=== PATIENT | male | born 1945 | race Caucasian/White ===

== ENCOUNTER 2020-09-11 11:45 | Emergency (ER) | payer MEDICARE, SELFPAY ==
--- NOTE | 2020-09-11 11:49 | ED_ITS ---
HPI - General Adult General Chief complaint: Trauma Stated complaint: GLF Time Seen by Provider: 09/11/20 11:47 Source: patient Mode of arrival: EMS Limitations: no limitations History of Present Illness HPI narrative: Patient is a 74-year-old male. Was brought in by EMS for evaluation of a potential urinary tract infection. He has also had multiple falls over the past couple days. His last fall was approximately 4 days ago. He states he just lost his balance falling over and he did hit his head and did hurt his left shoulder. He is on anticoagulation. Reports no other injuries from that fall. He was not evaluated for that fall. Today he stated that he slid out of his chair. He did not hit his head today. Reports no injury from sliding out of his chair today. He does state that he has had painful urination for the past couple days. Denies any fevers. Has had urinary tract infections in the past. He does have an essential tremor in bilateral upper extremities with left being greater than right. He states this is been there for ?years? and he has had evaluated. Related Data Previous Rx's Medication Instructions Recorded cephalexin [Keflex] 500 mg PO BID 5 Days #10 cap 09/11/20 Allergies Allergy/AdvReac Type Severity Reaction Status Date / Time No Known Allergies Allergy Uncoded 09/11/20 12:03 Review of Systems Constitutional Constitutional: Denies fever(s), Reports frequent falls and Denies headache(s) ENT Ears, Nose, Mouth, and Throat: Denies vertigo, Denies dizziness, Denies headache(s) and Reports disequilibrium Cardiovascular Cardiovascular: Denies chest pain and Denies dyspnea Respiratory Respiratory: Denies dyspnea Gastrointestinal Gastrointestinal: Denies abdominal pain, Denies nausea and Denies vomiting Musculoskeletal Comments: Some left shoulder discomfort, some left hip discomfort Integumentary/Breasts Comments: Bruising to left shoulder Neurologic Neurologic: Denies behavioral changes, Denies vertigo, Denies dizziness, Reports frequent falls, Denies headache(s), Reports tremor(s) and Reports disequili brium Psychiatric Psychiatric: Denies behavioral changes Hematologic/Lymphatic On Anticoagulants: Yes Allergic/Immunologic Allergic/Immunologic: Denies urticaria Patient History Medical History Coarse tremors Congestive heart failure Social History (Reviewed 09/11/20 @ 12:19 by ESTHER Adkins Smoking Status: Never smoker Exam Initial Vital Signs Initial Vital Signs: Vital Signs Temperature 98.3 F 09/11/20 11:57 Pulse Rate 83 09/11/20 11:57 Respiratory Rate 15 09/11/20 11:57 Blood Pressure 148/81 H 09/11/20 11:57 Pulse Oximetry 98 09/11/20 11:57 Const General: cooperative and comfortable Limitations: mental status not altered HENMT Head: contusion (Left parietal region) and No laceration Nose: external nose normal Resp Effort & Inspection: normal respiratory effort Auscultation: clear to auscultation bilaterally Cardio Rate: regular rate Rhythm: regular rhythm Pulses: radial pulses present GI Inspection: non-distended Palpation: soft and No firm Back/Spine/Pelvis Cervical Spine: No cervical spinal tenderness Skin Other: Contusion around left shoulder in contusion left parietal region scalp Neuro General: patient alert, patient awake and patient oriented x3 Cognition: normal cognition Speech: speech normal Other: Tremors bilateral upper extremities left being greater than right Extrem Other: Patient does have tenderness to palpation was left hip this is not new. Does have tenderness to palpation of his left shoulder that is new from his last fall Psych Appearance: grossly normal and well kempt Course Orders Ordered: ED Orders 09/11/20 11:52 Complete Blood Count AUTO DIFF Stat Comprehensive Metabolic Panel Stat Lipase Stat Procalcitonin Stat 09/11/20 11:59 EKG-12 Lead Stat 09/11/20 12:16 CT head/brain wo con Stat XR shoulder LT min 2V Stat 09/11/20 13:00 Urine Culture Stat Urine Microscopic Stat Sodium Chloride (Normal Saline 0.9%) 1,000 mls @ 500 mls/hr IV BOLUS ONE Stop: 09/11/20 14:15 Last Admin: 09/11/20 12:50 Dose: 500 mls/hr Documented by: GENARO Vital Signs Vital signs: Vital Signs - 8 hr 09/11/20 11:57 Temperature 98.3 F Pulse Rate 83 Respiratory Rate 15 Blood Pressure 148/81 H Pulse Oximetry 98 Medical Decision Making Lab Data Result diagrams: 09/11/20 11:52 09/11/20 11:52 Labs: Lab Results 09/11/20 09/11/20 09/11/20 Range/Units 11:52 11:52 11:52 WBC 9.9 (4.5-11.0) X10^3/uL RBC 3.86 L (4.5-5.9) X10^6/uL Hgb 14.3 (13.5-17.5) g/dL Hct 42.1 (41-53) % MCV 109.1 H (80-100) fL MCH 37.0 H (26-34) PG MCHC 33.9 (30-36) % RDW 16.2 H (11.6-14.8) % Plt Count 177 (150-400) X10^3/uL Neut % (Auto) 85.9 H (50-75) % Lymph % (Auto) 3.9 L (25-40) % Cherokee % (Auto) 9.8 (3-14) % Eos % (Auto) 0.1 L (2-4) % Baso % (Auto) 0.3 (0-2) % Neut # (Auto) 8500 H (6434-3541) /uL Lymph # (Auto) 400 L (8715-1160) /uL Cherokee # (Auto) 1000 H (0-900) /uL Eos # (Auto) 0 (0-450) /uL Baso # (Auto) 0 (0-100) /uL Sodium 133 L (137-145) mmol/L Potassium 3.1 L (3.4-5.1) mmol/L Chloride 94 L (98-107) mmol/L Carbon Dioxide 28 (22-32) mmol/L BUN 28 H (9-20) mg/dL Creatinine 1.75 H (0.66-1.25) mg/dL Estimated GFR 38.4 L (>60) mL/min BUN/Creatinine Ratio 16.0 (6-22) Glucose 121 H (80-110) mg/dL Calcium 9.0 (8.4-10.2) mg/dL Total Bilirubin 1.6 H (0.2-1.3) mg/dL AST 31 (17-59) IU/L ALT 20 (<50) IU/L Alkaline Phosphatase 122 (38-126) U/L Total Protein 7.3 (6.3-8.2) g/dL Albumin 3.8 (3.5-5.0) g/dL Globulin 3.5 (1.7-4.1) g/dL Albumin/Globulin Ratio 1.1 (1.0-2.8) Lipase 40 (23-300) U/L Procalcitonin 1.43 H (<0.5) ng/mL Urine RBC (0-5/HPF) Urine WBC (0-5/HPF) Ur Squamous Epith Cells (0-5/HPF) Amorphous Sediment Urine Bacteria (None) Granular Casts (None) Urine Mucus (Negative) Ur Culture Indicated? 09/11/20 Range/Units 13:00 WBC (4.5-11.0) X10^3/uL RBC (4.5-5.9) X10^6/uL Hgb (13.5-17.5) g/dL Hct (41-53) % MCV (80-100) fL MCH (26-34) PG MCHC (30-36) % RDW (11.6-14.8) % Plt Count (150-400) X10^3/uL Neut % (Auto) (50-75) % Lymph % (Auto) (25-40) % Cherokee % (Auto) (3-14) % Eos % (Auto) (2-4) % Baso % (Auto) (0-2) % Neut # (Auto) (5294-6939) /uL Lymph # (Auto) (8068-3884) /uL Cherokee # (Auto) (0-900) /uL Eos # (Auto) (0-450) /uL Baso # (Auto) (0-100) /uL Sodium (137-145) mmol/L Potassium (3.4-5.1) mmol/L Chloride (98-107) mmol/L Carbon Dioxide (22-32) mmol/L BUN (9-20) mg/dL Creatinine (0.66-1.25) mg/dL Estimated GFR (>60) mL/min BUN/Creatinine Ratio (6-22) Glucose (80-110) mg/dL Calcium (8.4-10.2) mg/dL Total Bilirubin (0.2-1.3) mg/dL AST (17-59) IU/L ALT (<50) IU/L Alkaline Phosphatase (38-126) U/L Total Protein (6.3-8.2) g/dL Albumin (3.5-5.0) g/dL Globulin (1.7-4.1) g/dL Albumin/Globulin Ratio (1.0-2.8) Lipase (23-300) U/L Procalcitonin (<0.5) ng/mL Urine RBC 1-5/hpf (0-5/HPF) Urine WBC 10-30/hpf H (0-5/HPF) Ur Squamous Epith Cells 0-1 /hpf (0-5/HPF) Amorphous Sediment 1+ Urine Bacteria Few (2-10) H (None) Granular Casts 1-5/lpf (None) Urine Mucus 1+ H (Negative) Ur Culture Indicated? Specimen cultured Urine Dip Bedside Urine Glucose Negative Bedside Urine Bilirubin - Negative Bedside Urine Ketone +/- 5 Urine Specific Dwight 1.025 Bedside Urine Occult Blood +++ Bedside Urine pH 6.0 Bedside Urine Protein + 30 Bedside Urine Urobilinogen - Negative Bedside Urine Nitrite - Negative Bedside Urine Leukocytes + 70 Esterase Point of care testing: Urine Dip Bedside Urine Glucose Negative Bedside Urine Bilirubin - Negative Bedside Urine Ketone +/- 5 Urine Specific Dwight 1.025 Bedside Urine Occult Blood +++ Bedside Urine pH 6.0 Bedside Urine Protein + 30 Bedside Urine Urobilinogen - Negative Bedside Urine Nitrite - Negative Bedside Urine Leukocytes + 70 Esterase Imaging Data Extremity x-ray #1: Radiologist's Impression: [address] [id number] ReportSigned Patient: Fady Cummings AMR#: [id number]: 7Acct:[id number]/Sex: 74 / MDate of Service: 09/11/20Loc: EDAccession Number: [id number] Procedure: XR shoulder LT min 2V Ordering Provider: José Miguel Sampson D.O. PROCEDURE: XR SHOULDER LT MIN 2V INDICATIONS: fall with pain TECHNIQUE: 3 views of the shoulder were acquired. COMPARISON: None. FINDINGS: Bones: No fractures or dislocations. No suspicious bony lesions. Visualized ribs appear intact. Soft tissues: No suspicious soft tissue calcifications. IMPRESSION: No acute fracture. No osseous lesion. If symptoms and/or clinical suspicion for pathology persist, further assessment with repeat, or advanced imaging (e.g., CT, MRI, or bone scan) may be helpful for further assessment. Dictated by: Lidia Mireles M.D. on 09/11/2020 at 11:36 Approved by: Lidia Mireles M.D. on 09/11/2020 at 11:36 CT scan - head: Radiologist's Impression: [address] [id number] Scan ReportSigned Patient: Fday Cummings AMR#: [id number]: 7Acct:[id number]/Sex: 74 / MDate of Service: 09/11/20Loc: EDAccession Number: [id number] Procedure: CT head/brain wo con Ordering Provider: José Miguel Sampson D.O. PROCEDURE: CT HEAD/BRAIN WO CON INDICATIONS: Fall on blood thinners TECHNIQUE: Noncontrast 4.5 mm thick angled axial sections acquired from the foramen magnum to the vertex, with coronal and sagittal reformats. For radiation dose reduction, the following was used: automated exposure control, adjustment of mA and/or kV according to patient size. COMPARISON: None. FINDINGS: Image quality: Excellent. CSF spaces: Basal cisterns are patent. No extra-axial fluid collections. The ventricles are symmetric in size and shape. Brain: No intracranial bleeds or masses. There is cerebral volume loss for age, with resultant ventricular and sulcal prominence. There are periventricular and deep white matter chronic small vessel ischemic changes. There is intracranial internal carotid artery atherosclerosis. Skull and face: Calvarium and visualized facial bones appear intact, without s uspicious lesions. Sinuses: Severe left maxillary sinus opacification. Visualized sinuses and m astoids are otherwise clear. IMPRESSION: No acute intracranial abnormality. Left maxillary sinus disease. Dictated by: Lidia Mireles M.D. on 09/11/2020 at 11:37 Approved by: Lidia Mireles M.D. on 09/11/2020 at 11:38 ECG Data Attestation: I personally reviewed and interpreted this ECG as follows: Prior ECG tracings: not available for review Interpretation: Sinus rhythm Ventricular rate is 68 Frequent PACs Occasional ventricular pace MDM Narrative Medical decision making narrative: Patient is nontoxic appearing. He is at his baseline neurologic status per himself and his daughter who is at bedside. His left shoulder x-ray in his head CT are unremarkable. Modified trauma was called upon arrival because he did fall and has a head injury any is on anticoagulation. His urinalysis does show signs of urinary tract infection. Urine culture was pending at the time of his discharge and he was informed that he would be contacted if we need to change any antibiotics. He was given 1st dose of antibiotics here in the emergency department and a prescription was transmitted to the pharmacy of his choice for the remainder of the course. I also had a long discussion with him and his daughter about his living situations. We did discuss fall prevention. They stated they had information to the needed about other resources if needed. Patient and daughter expressed understanding and agreement with return precautions. Discharge Plan Departure Patient Disposition: Home Clinical Impression: Urinary tract infection Instructions: DI for Urinary Tract Infection (UTI), How to Prevent Falls Activity Restrictions/Additional Instructions: A prescription for the remainder of the course of the antibiotics was electronically transmitted to [facility]. Please take them as directed. It is important that you take the proper precautions at home to prevent falls. Contact your primary provider for follow-up. Return to the emergency department for any new or worsening symptoms Prescriptions: New cephalexin [Keflex] 500 mg capsule 500 mg PO BID 5 Days Qty: 10 RF: 0
[2020-09-11 11:57] VITALS: BP 148/81; PULSE 83; RESP 15; TEMP 36.8; O2SAT 98; BMI 26.6
[2020-09-11 11:59] LABS: Add Manual Diff / Slide Review NO; Basophils Absolute Auto 0 /uL (0-100); Basophils Percent Auto 0.3 % (0-2); Eosinophils Absolute Auto 0 /uL (0-450); Eosinophils Percent Auto 0.1 % (2-4); Hematocrit 42.1 % (41-53); Hemoglobin 14.3 g/dL (13.5-17.5); Lymphocytes Absolute Auto 400 /uL (1100-4500); Lymphocytes Percent Auto 3.9 % (25-40); Mean Corpuscular HGB Conc 33.9 % (30-36); Mean Corpuscular Volume 109.1 fL (80-100); Monocytes Absolute Auto 1000 /uL (0-900); Monocytes Percent Auto 9.8 % (3-14); Neutrophils Absolute Auto 8500 /uL (1500-7000); Neutrophils Percent Auto 85.9 % (50-75); Platelet Count 177 X10^3/uL (150-400); Red Blood Cell Count 3.86 X10^6/uL (4.5-5.9); Red Cell Distribution Width 16.2 % (11.6-14.8); White Blood Cell Count 9.9 X10^3/uL (4.5-11.0)
[2020-09-11 12:00] VITALS: BP 141/81; PULSE 89; RESP 16; O2SAT 97
[2020-09-11 12:08] LABS: Alanine Aminotransferase 20 IU/L (<50); Albumin 3.8 g/dL (3.5-5.0); Albumin Globulin Ratio 1.1 (1.0-2.8); Alkaline Phosphatase 122 U/L (38-126); Aspartate Aminotransferase 31 IU/L (17-59); Bilirubin Total 1.6 mg/dL (0.2-1.3); Blood Urea Nitrogen 28 mg/dL (9-20); Carbon Dioxide 28 mmol/L (22-32); Chloride 94 mmol/L (98-107); Estimated Glomerular Filt Rate 38.4 mL/min (>60); Globulin 3.5 g/dL (1.7-4.1); Glucose 121 mg/dL (80-110); HEMOLYSIS < 15 (0-50); Lipase 40 U/L (23-300); Potassium 3.1 mmol/L (3.4-5.1); Sodium 133 mmol/L (137-145); Total Protein 7.3 g/dL (6.3-8.2)
--- NOTE | 2020-09-11 12:16 | DI.CT.S_ITS ---
PROCEDURE: CT HEAD/BRAIN WO CON INDICATIONS: Fall on blood thinners TECHNIQUE: Noncontrast 4.5 mm thick angled axial sections acquired from the foramen magnum to the vertex, with coronal and sagittal reformats. For radiation dose reduction, the following was used: automated exposure control, adjustment of mA and/or kV according to patient size. COMPARISON: None. FINDINGS: Image quality: Excellent. CSF spaces: Basal cisterns are patent. No extra-axial fluid collections. The ventricles are symmetric in size and shape. Brain: No intracranial bleeds or masses. There is cerebral volume loss for age, with resultant ventricular and sulcal prominence. There are periventricular and deep white matter chronic small vessel ischemic changes. There is intracranial internal carotid artery atherosclerosis. Skull and face: Calvarium and visualized facial bones appear intact, without suspicious lesions. Sinuses: Severe left maxillary sinus opacification. Visualized sinuses and mastoids are otherwise clear. IMPRESSION: No acute intracranial abnormality. Left maxillary sinus disease. Dictated by: Lidia Mireles M.D. on 09/11/2020 at 11:37 Approved by: Lidia Mireles M.D. on 09/11/2020 at 11:38
--- NOTE | 2020-09-11 12:16 | DI.RAD.S_ITS ---
PROCEDURE: XR SHOULDER LT MIN 2V INDICATIONS: fall with pain TECHNIQUE: 3 views of the shoulder were acquired. COMPARISON: None. FINDINGS: Bones: No fractures or dislocations. No suspicious bony lesions. Visualized ribs appear intact. Soft tissues: No suspicious soft tissue calcifications. IMPRESSION: No acute fracture. No osseous lesion. If symptoms and/or clinical suspicion for pathology persist, further assessment with repeat, or advanced imaging (e.g., CT, MRI, or bone scan) may be helpful for further assessment. Dictated by: iLdia Mireles M.D. on 09/11/2020 at 11:36 Approved by: Lidia Mireles M.D. on 09/11/2020 at 11:36
[2020-09-11 12:28] LABS: Procalcitonin 1.43 ng/mL (<0.5)
[2020-09-11] MEDS: SODIUM CHLORIDE 0.9% 1,000 ML 500 ML IV (12:50)
[2020-09-11 13:18] LABS: Amorphous Sediment Urine 1+; Bacteria Urine Few (2-10); Granular Casts Urine 1-5/LPF; RBC Urine 1-5/HPF (0-5/HPF); Squamous Epithelial Cell Urine 0-1 /HPF (0-5/HPF); WBC Urine 10-30/HPF (0-5/HPF)
[2020-09-11 13:19] LABS: Culture Indicated Urine Specimen Cultured; Mucus Urine 1+ (Negative)
[2020-09-11] MEDS: cephALEXin 250 MG CAPSULE 500 MG PO (13:53)
[2020-09-11 14:00] VITALS: BP 136/84; PULSE 79; RESP 16; O2SAT 99
--- NOTE | 2020-10-10 14:15 | PC.NURSE ---
Late entry: IV NS 500 mL bolus started at 1250 infused at 1320 hrs.
== END 2020-09-11 14:45 | disposition home or self-care (01) ==
PROVIDERS: Emergency Provider Emergency Medicine
DX: N39.0 Urinary tract infection, site not specified (principal); M25.512 Pain in left shoulder; R29.6 Repeated falls; S09.90XA Unspecified injury of head, initial encounter; W19.XXXA Unspecified fall, initial encounter
CPT/HCPCS: 36415; 70450; 73030; 80053; 81003; 81015; 83690; 84145; 85025; 87077; 87086; 87186; 93005; 99283; 99284

== ENCOUNTER 2020-12-15 19:04 | Inpatient (IN) | payer OTHER, SELFPAY ==
[2020-12-15] VITALS (51 sets, daily range): BP systolic 69–165; BP diastolic 30–88; PULSE 59–88; RESP 15–35; TEMP 34.4–36.7; O2SAT 81–100; BMI 25.9
--- NOTE | 2020-12-15 | DI.CT.S_ITS ---
PROCEDURE: CT ABDOMEN PELVIS WO CON INDICATIONS: Possible obstruction/sepsis TECHNIQUE: Noncontrast 5 mm thick sections acquired from the diaphragms to the symphysis. 5 mm coronal and sagittal reformats were then performed. For radiation dose reduction, the following was used: automated exposure control, adjustment of mA and/or kV according to patient size. COMPARISON: [facility], CT, CHEST/ABD/PEL WITHOUT CONTRAST, 10/15/2013, 12:32. FINDINGS: Image quality: Excellent. ABDOMEN: Lung bases: Lung bases are clear. Heart is enlarged. No pleural effusion. Solid organs: Liver is normal in size. Gallbladder contains layering hyperdense material likely representing sludge. No definite stones.. Biliary system is non dilated. Pancreas is normal in size. No peripancreatic stranding. Spleen is normal in size. No adrenal nodule seen. Kidneys are stable in size and appearance. No hydronephrosis. No evidence for renal stones. Small bilateral renal cysts, not significantly changed. There is a 3 mm distal left ureteral stone. This is best seen on axial image 70, series 2. No left-sided hydroureteronephrosis. Right ureter is normal in course and caliber. No right-sided ureteral stones seen. No urinary bladder stone identified. Stable mild perinephric stranding, likely related to senescent changes. No periureteral stranding. Peritoneum and bowel: Bowel loops demonstrate normal wall thickness and caliber. Colonic diverticulosis without acute diverticulitis. No pelvic free fluid or free air. Nodes and vessels: No retroperitoneal or mesenteric adenopathy by size criteria. Aorta and inferior vena cava are normal in size. Scattered atherosclerotic calcifications of the abdominal aorta and iliac vessels without aneurysmal dilatation. Miscellaneous: No ventral hernias. PELVIS: Genitourinary: Urinary bladder wall thickness appears normal for degree of distension. No urinary bladder stones. Mild prostatomegaly. Miscellaneous: Stable fat containing left inguinal hernia without acute inflammation. No pelvic adenopathy. Bones: No suspicious bony lesions. There is approximately 30% anterior vertebral body height loss from age indeterminate anterior compression fracture of T12, favored to represent acute to subacute in etiology. Multilevel spondylosis of the imaged spine. Status post left total hip arthroplasty. IMPRESSION: 1. Nonobstructing 3 mm distal left ureteral stone. 2. Age-indeterminate but likely acute to subacute anterior compression fracture of T12 with approximately 30% loss of anterior vertebral body height. 3. Layering hyperdensity within the gallbladder likely representing sludge versus innumerable layering tiny gallstones. No CT evidence of acute cholecystitis. 4. Atherosclerotic vascular disease. 5. Colonic diverticulosis without acute diverticulitis. 6. Stable cardiomegaly. Findings were discussed with Dr. Sampson of the emergency department at 9:45 a.m.. Specifically, 3 mm distal left ureteral stone was not mentioned on the preliminary report.. Dictated by: Suresh Naranjo M.D. on 12/16/2020 at 9:35 Approved by: Suresh Naranjo M.D. on 12/16/2020 at 9:53
--- NOTE | 2020-12-15 19:40 | DI.RAD.S_ITS ---
PROCEDURE: XR CHEST 1V INDICATIONS: sepsis evaluation TECHNIQUE: One view of the chest was acquired. COMPARISON: None. FINDINGS: Surgical changes and devices: Left-sided pacer. Lungs and pleura: Lungs are clear. No pleural effusions or pneumothorax. Mediastinum: Mediastinal contours appear normal. Heart size is normal. Bones and chest wall: No suspicious bony lesions. Overlying soft tissues appear unremarkable. IMPRESSION: No acute process. Dictated by: Lidia Mireles M.D. on 12/15/2020 at 20:03 Approved by: Lidia Mireles M.D. on 12/15/2020 at 20:03
--- NOTE | 2020-12-15 19:41 | DI.RAD.S_ITS ---
PROCEDURE: XR TOE RT MIN 2V INDICATIONS: 2nd toe necrosis TECHNIQUE: 3 views of the right 2nd toe(s) acquired. COMPARISON: None. FINDINGS: Bones: No fractures or dislocations. No suspicious bony lesions. Soft tissues: No suspicious soft tissue densities. IMPRESSION: No acute fracture. No osseous lesion. If symptoms and/or clinical suspicion for pathology persist, further assessment with repeat, or advanced imaging (e.g., CT, MRI, or bone scan) may be helpful for further assessment. Dictated by: Lidia Mireles M.D. on 12/15/2020 at 20:03 Approved by: Lidia Mireles M.D. on 12/15/2020 at 20:04
[2020-12-15 20:10] LABS: Add Manual Diff / Slide Review NO; Basophils Absolute Auto 100 /uL (0-100); Basophils Percent Auto 0.8 % (0-2); Eosinophils Absolute Auto 500 /uL (0-450); Eosinophils Percent Auto 5.3 % (2-4); Hemoglobin 12.8 g/dL (13.5-17.5); Lymphocytes Absolute Auto 1800 /uL (1100-4500); Lymphocytes Percent Auto 19.9 % (25-40); Mean Corpuscular HGB Conc 33.7 % (30-36); Mean Corpuscular Volume 115.9 fL (80-100); Monocytes Absolute Auto 900 /uL (0-900); Monocytes Percent Auto 10.3 % (3-14); Neutrophils Absolute Auto 5700 /uL (1500-7000); Neutrophils Percent Auto 63.7 % (50-75); Platelet Count 240 X10^3/uL (150-400); Red Blood Cell Count 3.28 X10^6/uL (4.5-5.9)
[2020-12-15] MEDS: LACTATED RINGERS 820 ML IV (20:10)
[2020-12-15 20:14] LABS: Alanine Aminotransferase 14 IU/L (<50); Albumin 3.9 g/dL (3.5-5.0); Alkaline Phosphatase 120 U/L (38-126); Aspartate Aminotransferase 24 IU/L (17-59); BUN Creatinine Ratio 19.3 (6-22); Bilirubin Total 0.4 mg/dL (0.2-1.3); Blood Urea Nitrogen 60 mg/dL (9-20); Calcium 9.7 mg/dL (8.4-10.2); Carbon Dioxide 19 mmol/L (22-32); Chloride 100 mmol/L (98-107); Creatine Kinase 22 U/L (55-170); Estimated Glomerular Filt Rate 19.7 mL/min (>60); Globulin 3.9 g/dL (1.7-4.1); Glucose 94 mg/dL (80-110); HEMOLYSIS < 15 (0-50); Sodium 132 mmol/L (137-145); Total Protein 7.8 g/dL (6.3-8.2)
[2020-12-15 20:15] LABS: Lactate (Lactic Acid) 3.6 mmol/L (0.7-2.1)
[2020-12-15 20:28] LABS: Troponin I 0.041 ng/mL (0.01-0.034)
[2020-12-15 20:33] LABS: Procalcitonin 0.31 ng/mL (<0.5)
[2020-12-15 20:47] LABS: Macrocytosis 3+; Platelet Estimate Adequate on smear
--- NOTE | 2020-12-15 20:54 | ED.EXTPRO ---
HPI - Extremity Problem General Chief complaint: Extremity Problem,Nontraumatic Stated complaint: Necrotic Stage 3 on Rt 2nd toe Time Seen by Provider: 12/15/20 19:25 Source: patient and family Mode of arrival: Wheelchair Limitations: no limitations History of Present Illness HPI Narrative: 75-year-old male nonsmoker, with history of HTN, DM, AFib and pacemaker with frequent falls presents for low blood pressure, chills and a wound on the 2nd toe of his right foot. The wound has been there for about 2-3 weeks and has been evaluated by multiple family members which are nurses. He is currently taking Keflex for the foot.. He denies any injury, new shoes or other. He denies any headache, runny nose or sore throat. He denies any chest pain, shortness of breath or cough. He denies any abdominal pain or trouble urinating. MD Complaint: extremity swelling Onset (ago): day(s) Location: right Radiation: none Relieving factors: nothing Exacerbating factors: nothing Associated symptoms: fever and myalgias Related Data Allergies Allergy/AdvReac Type Severity Reaction Status Date / Time No Known Allergies Allergy Uncoded 09/11/20 12:03 Review of Systems Constitutional Constitutional: Reports chills, Denies fatigue, Reports fever(s), Reports frequent falls, Denies lethargy and Denies weakness Eyes Eyes: Denies change in vision, Denies eye discharge, Denies irritation and Denies loss of vision ENT Ears, Nose, Mouth, and Throat: Denies change in voice, Denies dizziness, Denies neck pain, Denies sore throat and Denies throat swelling Cardiovascular Cardiovascular: Denies chest pain, Denies irregular heart rhythm, Denies lightheadedness, Denies palpitations, Denies dyspnea, Denies dyspnea on exertion and Denies orthopnea Respiratory Respiratory: Denies cough, Denies dyspnea, Denies dyspnea on exertion and Denies wheezing Gastrointestinal Gastrointestinal: Denies abdominal pain, Denies change in bowel habits, Denies diarrhea, Denies nausea and Denies vomiting Musculoskeletal Musculoskeletal: Denies neck pain and Denies numbness Integumentary/Breasts Skin/Breast: Denies pruritus, Denies erythema, Denies rash and Denies wounds Neurologic Neurologic: Denies behavioral changes, Denies confusion, Denies dizziness, Reports frequent falls, Denies loss of vision, Denies numbness and Denies weakness Psychiatric Psychiatric: Denies anxiety, Denies behavioral changes, Denies confusion, Denies depression, Denies homicidal ideation and Denies suicidal ideation Endocrine Endocrine: Denies fatigue, Denies flushing and Denies palpitations Hematologic/Lymphatic Hematologic/Lymphatic: Denies easy bruising Allergic/Immunologic Allergic/Immunologic: Denies urticaria, Denies throat swelling and Denies wheezing Patient History Medical History Coarse tremors Congestive heart failure Social History Smoking Status: Never smoker Smoking Status: Never smoker alcohol intake frequency: 0-2 drinks per day Substance Use Type: does not use Exam Narrative Exam Narrative: GENERAL: [75] year old patient appears stated age. Well-nourished, well-developed patient, in mild distress. Flat affect, baseline per family HEAD: Atraumatic. Normocephalic. EYES: Pupils equal round and reactive. Extraocular motions intact. No scleral icterus. No injection or drainage. ENT: Dry mucous membrane Nose without bleeding, purulent drainage. Throat without erythema, tonsillar hypertrophy or exudate. Airway patent. NECK: Trachea midline. Non tender CARDIOVASCULAR: Regular rate and rhythm without murmurs, gallops, or rubs. RESPIRATORY: Clear to auscultation. Breath sounds equal bilaterally. No wheezes, rales, or rhonchi. GASTROINTESTINAL: Abdomen soft, non-tender, nondistended. EXTREMITIES: Ulcerated wound on dorsum of right 2nd toe with surrounding erythema extending into the dorsum of foot but no further. No bone exposure BACK: Nontender without deformity or crepitance. No flank tenderness. NEURO: AOx3. SKIN: No rash or erythema of visible areas Initial Vital Signs Initial Vital Signs: Vital Signs Temperature 94 F L 12/15/20 19:10 Pulse Rate 60 12/15/20 19:10 Respiratory Rate 17 12/15/20 19:10 Blood Pressure 69/30 L 12/15/20 19:10 Pulse Oximetry 100 12/15/20 19:10 Course Course Course Narrative: Patient had severe sepsis orders from onset and blood pressure risen from 69, 73, to 88 by 2100. Orders Ordered: ED Orders 12/15/20 19:40 XR chest 1V Stat Urinalysis and Microscopic Stat EKG-12 Lead Stat 12/15/20 19:41 XR toe RT min 2V Stat 12/15/20 19:45 Complete Blood Count AUTO DIFF Stat Comprehensive Metabolic Panel Stat Lactate (Lactic Acid) Stat Magnesium Urgent Procalcitonin Stat Troponin & CK Cardiac Panel Stat 12/15/20 19:59 Wound Culture and Gram Stain Stat 12/15/20 20:11 Blood Culture Stat 12/15/20 20:27 COVID19 -Nasal swab/Pre-Proc Stat 12/15/20 20:59 CT head/brain wo con Stat 12/15/20 21:40 Education, smoking cessation ONGOING 12/16/20 05:00 Complete Blood Count AUTO DIFF DAILY Comprehensive Metabolic Panel DAILY Lactate (Lactic Acid) DAILY NT-proBNP (BNP-Adult 18+) Routine Prothrombin Time INR Routine Troponin I Routine 12/17/20 05:00 Complete Blood Count AUTO DIFF DAILY Comprehensive Metabolic Panel DAILY 12/18/20 05:00 Complete Blood Count AUTO DIFF DAILY Acetaminophen (Acetaminophen 325 Mg Tablet) 650 mg PO Q6HR PRN PRN Reason: Fever/Mild Pain (1-3) Docusate Sodium (Docusate 100 Mg Capsule) 100 mg PO BID JACE Enoxaparin Sodium (Enoxaparin 30 Mg/0.3 Ml Syringe) 30 mg SUBCUT DAILY JACE Lactated Ringer's (Lactated Ringers) 2,460 mls @ 820 mls/hr 30 ml/kg infuse over 3 hr (2460 ml) IV NOW ONE Stop: 12/15/20 23:03 Last Admin: 12/15/20 20:10 Dose: 820 mls/hr Documented by: [email or web address] Levofloxacin (Levaquin) 750 mg in 150 mls @ 100 mls/hr IV NOW ONE Stop: 12/15/20 22:20 Last Admin: 12/15/20 21:24 Dose: 100 mls/hr Documented by: [email or web address] Norepinephrine Bitartrate 4 mg (/ Dextrose) 254 mls @ 30.48 mls/hr IV TITRATE JACE; Protocol Last Titration: 12/15/20 21:37 Dose: 8 mcg/min, 30.48 mls/hr Documented by: [email or web address] Titration: 12/15/20 21:29 Dose: 0 mcg/min, 0 mls/hr Documented by: [email or web address] Admin: 12/15/20 21:23 Dose: 8 mcg/min, 30.48 mls/hr Documented by: STEPHAN Meropenem 1 gm/ Sodium (Chloride) 100 mls @ 200 mls/hr IV Q8H JACE Magnesium Hydroxide (Magnesium Hydroxide 30 Ml Udc) 30 ml PO BID PRN PRN Reason: Heartburn Naloxone HCl (Naloxone 0.4 Mg/Ml Vial) 0.2 mg IV Q2MIN PRN PRN Reason: Opiate Reversal Ondansetron HCl (Ondansetron 4 Mg/2 Ml Inj) 4 mg IV Q8HR PRN PRN Reason: Nausea And Vomiting Oxycodone HCl (Oxycodone Ir 5 Mg Tablet) 5 mg PO Q6HR PRN PRN Reason: Pain, Moderate (4-6) Pantoprazole Sodium (Pantoprazole Dr 40 Mg Tablet) 40 mg PO 0700 JACE Sennosides (Sennosides 8.6 Mg Tablet) 17.2 mg PO BEDTIME JACE Discontinued Medications Vancomycin HCl (Vancomycin Per Pharmacy) 1 request MISC NOW ONE Stop: 12/15/20 21:33 Vital Signs Vital signs: Vital Signs - 8 hr 12/15/20 19:10 12/15/20 19:41 12/15/20 19:46 Temperature 94 F L Pulse Rate 60 61 Respiratory Rate 17 28 H Blood Pressure 69/30 L 85/51 L 78/43 L Pulse Oximetry 100 92 100 12/15/20 19:50 12/15/20 19:56 12/15/20 20:00 Temperature Pulse Rate 60 67 61 Respiratory Rate 24 18 23 Blood Pressure 85/47 L 88/32 L Pulse Oximetry 100 100 100 12/15/20 20:10 12/15/20 20:15 12/15/20 20:20 Temperature Pulse Rate 60 60 60 Respiratory Rate 23 29 H 22 Blood Pressure 86/47 L 79/45 L 74/39 L Pulse Oximetry 100 100 100 12/15/20 20:25 12/15/20 20:30 12/15/20 20:35 Temperature Pulse Rate 60 60 60 Respiratory Rate 21 17 15 Blood Pressure 78/40 L 73/48 L 77/52 L Pulse Oximetry 100 100 100 12/15/20 20:40 12/15/20 20:45 12/15/20 20:50 Temperature Pulse Rate 60 60 60 Respiratory Rate 21 17 24 Blood Pressure 79/47 L 77/48 L 79/48 L Pulse Oximetry 100 100 100 12/15/20 20:55 12/15/20 21:00 12/15/20 21:05 Temperature Pulse Rate 60 60 60 Respiratory Rate 23 25 H 21 Blood Pressure 81/49 L 88/50 L 86/50 L Pulse Oximetry 100 100 100 12/15/20 21:19 12/15/20 21:20 12/15/20 21:25 Temperature Pulse Rate 60 60 59 L Respiratory Rate 24 22 15 Blood Pressure 88/50 L 91/54 L 132/63 Pulse Oximetry 100 98 99 12/15/20 21:27 12/15/20 21:30 Temperature Pulse Rate 59 L 59 L Respiratory Rate 17 17 Blood Pressure 147/67 H 119/55 L Pulse Oximetry 99 92 MDM - Extremity (Nontraumatic) Lab Data Result diagrams: 12/15/20 19:45 12/15/20 19:45 Labs: Lab Results 12/15/20 12/15/20 12/15/20 Range/Units 19:45 19:45 19:45 WBC 9.0 (4.5-11.0) X10^3/uL RBC 3.28 L (4.5-5.9) X10^6/uL Hgb 12.8 L (13.5-17.5) g/dL Hct 38.0 L (41-53) % MCV 115.9 H (80-100) fL MCH 39.0 H (26-34) PG MCHC 33.7 (30-36) % RDW 17.0 H (11.6-14.8) % Plt Count 240 (150-400) X10^3/uL Neut % (Auto) 63.7 (50-75) % Lymph % (Auto) 19.9 L (25-40) % [place] % (Auto) 10.3 (3-14) % Eos % (Auto) 5.3 H (2-4) % Baso % (Auto) 0.8 (0-2) % Neut # (Auto) 5700 (7016-0483) /uL Lymph # (Auto) 1800 (7079-6638) /uL [place] # (Auto) 900 (0-900) /uL Eos # (Auto) 500 H (0-450) /uL Baso # (Auto) 100 (0-100) /uL Platelet Estimate Adequate on smear RBC Morphology See below Macrocytosis 3+ H Sodium 132 L (137-145) mmol/L Potassium 4.0 (3.4-5.1) mmol/L Chloride 100 (98-107) mmol/L Carbon Dioxide 19 L (22-32) mmol/L BUN 60 H (9-20) mg/dL Creatinine 3.11 H (0.66-1.25) mg/dL Estimated GFR 19.7 L (>60) mL/min BUN/Creatinine Ratio 19.3 (6-22) Glucose 94 (80-110) mg/dL Lactate 3.6 H (0.7-2.1) mmol/L Calcium 9.7 (8.4-10.2) mg/dL Total Bilirubin 0.4 (0.2-1.3) mg/dL AST 24 (17-59) IU/L ALT 14 (<50) IU/L Alkaline Phosphatase 120 (38-126) U/L Total Creatine Kinase 22 L (55-170) U/L CK-MB (CK-2) TNP CK-MB (CK-2) Rel Index TNP Troponin I 0.041 H (0.01-0.034) ng/mL Total Protein 7.8 (6.3-8.2) g/dL Albumin 3.9 (3.5-5.0) g/dL Globulin 3.9 (1.7-4.1) g/dL Albumin/Globulin Ratio 1.0 (1.0-2.8) Procalcitonin 0.31 (<0.5) ng/mL SARS-CoV-2 (PCR) (Negative) 12/15/20 Range/Units 20:27 WBC (4.5-11.0) X10^3/uL RBC (4.5-5.9) X10^6/uL Hgb (13.5-17.5) g/dL Hct (41-53) % MCV (80-100) fL MCH (26-34) PG MCHC (30-36) % RDW (11.6-14.8) % Plt Count (150-400) X10^3/uL Neut % (Auto) (50-75) % Lymph % (Auto) (25-40) % [place] % (Auto) (3-14) % Eos % (Auto) (2-4) % Baso % (Auto) (0-2) % Neut # (Auto) (0776-5602) /uL Lymph # (Auto) (4191-4863) /uL [place] # (Auto) (0-900) /uL Eos # (Auto) (0-450) /uL Baso # (Auto) (0-100) /uL Platelet Estimate RBC Morphology Macrocytosis Sodium (137-145) mmol/L Potassium (3.4-5.1) mmol/L Chloride (98-107) mmol/L Carbon Dioxide (22-32) mmol/L BUN (9-20) mg/dL Creatinine (0.66-1.25) mg/dL Estimated GFR (>60) mL/min BUN/Creatinine Ratio (6-22) Glucose (80-110) mg/dL Lactate (0.7-2.1) mmol/L Calcium (8.4-10.2) mg/dL Total Bilirubin (0.2-1.3) mg/dL AST (17-59) IU/L ALT (<50) IU/L Alkaline Phosphatase (38-126) U/L Total Creatine Kinase (55-170) U/L CK-MB (CK-2) CK-MB (CK-2) Rel Index Troponin I (0.01-0.034) ng/mL Total Protein (6.3-8.2) g/dL Albumin (3.5-5.0) g/dL Globulin (1.7-4.1) g/dL Albumin/Globulin Ratio (1.0-2.8) Procalcitonin (<0.5) ng/mL SARS-CoV-2 (PCR) Negative (Negative) Imaging Data Chest x-ray: Radiologist's Impression: [address] [id number] ReportSigned Patient: Fady Cummings [facility]#: [id number]: 1945cct:[id number]/Sex: 75 / MDate of Service: 12/15/20Loc: EDAccession Number: [id number] Procedure: XR chest 1V Ordering Provider: Neville Duncan D.O. PROCEDURE: XR CHEST 1V INDICATIONS: sepsis evaluation TECHNIQUE: One view of the chest was acquired. COMPARISON: None. FINDINGS: Surgical changes and devices: Left-sided pacer. Lungs and pleura: Lungs are clear. No pleural effusions or pneumothorax. Mediastinum: Mediastinal contours appear normal. Heart size is normal. Bones and chest wall: No suspicious bony lesions. Overlying soft tissues appear unremarkable. IMPRESSION: No acute process. Dictated by: Lidia Mireles M.D. on 12/15/2020 at 20:03 Approved by: Lidia Mireles M.D. on 12/15/2020 at 20:03 Extremity x-ray #1: Radiologist's Impression: Fady Cummings 75 M [address] [id number] ReportSigned Patient: Fady Cummings [facility]#: [id number]: 1945cct:[id number]/Sex: 75 / MDate of Service: 12/15/20Loc: EDAccession Number: [id number] Procedure: XR toe RT min 2V Ordering Provider: Neville Duncan D.O. PROCEDURE: XR TOE RT MIN 2V INDICATIONS: 2nd toe necrosis TECHNIQUE: 3 views of the right 2nd toe(s) acquired. COMPARISON: None. FINDINGS: Bones: No fractures or dislocations. No suspicious bony lesions. Soft tissues: No suspicious soft tissue densities. IMPRESSION: No acute fracture. No osseous lesion. If symptoms and/or clinical suspicion for pathology persist, further assessment with repeat, or advanced imaging (e.g., CT, MRI, or bone scan) may be helpful for further assessment. Dictated by: Lidia Mireles M.D. on 12/15/2020 at 20:03 Approved by: Lidia Mireles M.D. on 12/15/2020 at 20:04 CT scan - head: Radiologist's Impression: [address] [id number] Scan ReportSigned Patient: Fady Cummings [facility]#: [id number]: 1945cct:[id number]/Sex: 75 / MDate of Service: 12/15/20Loc: EDAccession Number: [id number] Procedure: CT head/brain wo con Ordering Provider: Neville Duncan D.O. PROCEDURE: CT HEAD/BRAIN WO CON INDICATIONS: multiple falls TECHNIQUE: Noncontrast 4.5 mm thick angled axial sections acquired from the foramen magnum to the vertex, with coronal and sagittal reformats. For radiation dose reduction, the following was used: automated exposure control, adjustment of mA and/or kV according to patient size. COMPARISON: [facility], CT, CT HEAD/BRAIN WO CON, 09/11/2020, 12:17. FINDINGS: Image quality: Excellent. CSF spaces: Basal cisterns are patent. No extra-axial fluid collections. The ventricles are symmetric in size and shape. Brain: No intracranial bleeds or masses. There is cerebral volume loss for age, with resultant ventricular and sulcal prominence. There are periventricular and deep white matter chronic small vessel ischemic changes. There is intracranial internal carotid artery atherosclerosis. Skull and face: Calvarium and visualized facial bones appear intact, without suspicious lesions. Sinuses: Near complete opacification of the left maxillary sinus. IMPRESSION: 1. Volume loss and small vessel ischemic disease. 2. No acute intracranial abnormality. 3. Left maxillary sinus disease. Dictated by: Lidia Mireles M.D. on 12/15/2020 at 21:39 Approved by: Lidia Mireles M.D. on 12/15/2020 at 21:40 Discharge Plan Departure Patient Disposition: Admitted As Inpatient Clinical Impression: Cellulitis of foot, right, Acute UTI Sepsis Qualifiers: Sepsis type: sepsis due to unspecified organism Sepsis acute organ dysfunction status: with acute organ dysfunction Severe sepsis acute organ dysfunction type: unspecified Severe sepsis shock status: unspecified Qualified Code(s): A41.9 - Sepsis, unspecified organism
--- NOTE | 2020-12-15 20:59 | DI.CT.S_ITS ---
PROCEDURE: CT HEAD/BRAIN WO CON INDICATIONS: multiple falls TECHNIQUE: Noncontrast 4.5 mm thick angled axial sections acquired from the foramen magnum to the vertex, with coronal and sagittal reformats. For radiation dose reduction, the following was used: automated exposure control, adjustment of mA and/or kV according to patient size. COMPARISON: [facility], CT, CT HEAD/BRAIN WO CON, 09/11/2020, 12:17. FINDINGS: Image quality: Excellent. CSF spaces: Basal cisterns are patent. No extra-axial fluid collections. The ventricles are symmetric in size and shape. Brain: No intracranial bleeds or masses. There is cerebral volume loss for age, with resultant ventricular and sulcal prominence. There are periventricular and deep white matter chronic small vessel ischemic changes. There is intracranial internal carotid artery atherosclerosis. Skull and face: Calvarium and visualized facial bones appear intact, without suspicious lesions. Sinuses: Near complete opacification of the left maxillary sinus. IMPRESSION: 1. Volume loss and small vessel ischemic disease. 2. No acute intracranial abnormality. 3. Left maxillary sinus disease. Dictated by: Lidia Mireles M.D. on 12/15/2020 at 21:39 Approved by: Lidia Mireles M.D. on 12/15/2020 at 21:40
[2020-12-15] MEDS: NOREPINEPHRINE 4 MG in DEXTROSE 5% IN WATER 250 ML 30.48 ML IV (21:23)
[2020-12-15] MEDS: levoFLOXacin 750 MG/150 ML PIGGYBACK 100 MG IV (21:24)
[2020-12-15 21:43] LABS: COVID19 -Nasal RAPID Negative (Negative)
[2020-12-15 21:55] LABS: Reflexed Lactate in 2 Hours Y
[2020-12-15 22:36] LABS: Magnesium 1.8 mg/dL (1.6-2.3)
[2020-12-15 22:37] LABS: Lactate 2HR (Lactic Acid Rflx) 3.9 mmol/L (0.7-2.1)
[2020-12-16] VITALS (67 sets, daily range): BP systolic 74–146; BP diastolic 44–77; PULSE 59–82; RESP 12–31; TEMP 35.6–36.7; O2SAT 96–100; BMI 25.9
--- NOTE | 2020-12-16 | DI.RAD.S_ITS ---
PROCEDURE: XR CHEST FOR PICC 1V INDICATIONS: PICC PLACEMENT VERIFICATION COMPARISON: [facility], , XR CHEST FOR PICC 1V, 12/16/2020, 9:33. FINDINGS: PICC was placed by the intravenous therapy team from the right side. Fluoroscopic spot film demonstrates the tip of PICC projecting to the area of SVC right atrial junction. IMPRESSION: Tip of PICC projects to the area of SVC right atrial junction. Dictated by: Madi Mayberry M.D. on 12/16/2020 at 11:00 Approved by: Madi Mayberry M.D. on 12/16/2020 at 11:00
[2020-12-16] MEDS: ONDANSETRON 4 MG/2 ML INJ IV (00:47)
[2020-12-16] MEDS: OXYCODONE IR 5 MG TABLET PO ×2 (00:56→08:37)
[2020-12-16] MEDS: VANCOMYCIN 1,500 MG/300 ML PIGGYBACK 200 MG IV (00:56)
[2020-12-16] MEDS: MEROPENEM 1 GM in SODIUM CHLORIDE 0.9% 100 ML 200 ML IV ×3 (01:36→20:26)
[2020-12-16 02:32] LABS: Bacteria Urine None Seen; RBC Urine None Seen (0-5/HPF); WBC Urine None Seen (0-5/HPF)
[2020-12-16 02:33] LABS: Appearance Urine UA CLEAR; Bilirubin Urine UA NEGATIVE (NEGATIVE); Color Urine UA YELLOW; Glucose Urine UA NEGATIVE (Negative); Ketones Urine UA NEGATIVE (NEGATIVE); Leukocyte Esterase Urine UA NEGATIVE (NEGATIVE); Nitrite Urine UA NEGATIVE (Negative); Occult Blood Urine UA 1+ (Negative); Protein Urine UA NEGATIVE (Negative); Urobilinogen Urine UA 0.2 E.U./dL (0.2)
[2020-12-16 03:07] LABS: Culture Indicated Urine Cult Not Indicated
--- NOTE | 2020-12-16 04:15 | P.HP_ITS ---
History of Present Illness History of Present Illness Date Patient Seen: 12/15/20 Time Patient Seen: 21:54 Chief complaint: Necrotic Stage 3 on Rt 2nd toe Narrative: Patient is a 75-year-old male nonsmoker, with history of HTN, DM, CHF, GERD, AFib and pacemaker with frequent falls presents for low blood pressure, chills, body aches, pain with urination, and a wound on the 2nd toe of his right foot. The wound has been there for about 2-3 weeks and has been evalu ated by multiple family members which are nurses. He is currently taking Keflex for the foot that was prescribed by a family friend who is a doctor. He denies any recent new illness, trauma, injury, new shoes or other. He denies any headache, runny nose or sore throat. He denies any chest pain, shortness of breath or cough. He denies any abdominal pain, or constipation. Patient's Primary as at the [facility]. The patient's daughter is at the bedside providing most the history she states that he has been within the last year, has been eating poorly and subsequently has lost over 100 lb within the last year. His daughter is an RN who lives within a mile of father who lives alone she goes by per day to provide care. Patient is stable and in no distress at this time. Patient's vitals upon admit patient was septic shock hypotensive with a BP 73/48, a heart rate of 60 and respirations of 17 but was satting at 100% on room air. Patient was put started on Levophed drip in the ED and was given fluids and antibiotics per sepsis protocol. Patient's white blood cell count was within normal limits, HGB of 12.8 and hematocrit of 38, macrocytosis 3+, patient had mild hyponatremia and BLAINE with a sodium of 132, HC03 19, BUN of 60, elevated creatinine of 3.11. and decreased GFR 19.7. Patient's lactate was slightly elevated at 3.6, his procalcitonin was unremarkable at 0.31, and a troponin of 0.041. Patient had a prominent cellulitis and ulceration of the 2nd toe on the right foot, patient's head CT: showed Volume loss and small vessel ischemic disease, No acute intracranial abnormality. Patient's chest x-ray and toe x-ray showed no acute abnormalities. Patient was admitted for this sepsis/septic shock, BLAINE, and cellulitis toe. Patient History Medical History (Updated 12/16/20 @ 04:55 by JENNIFER Wilcox) Coarse tremors Congestive heart failure Control of atrial fibrillation with pacemaker Depression GERD (gastroesophageal reflux disease) Gout Hypertension Type 2 diabetes mellitus with diabetic neuropathy Surgical History (Updated 12/16/20 @ 04:55 by JENNIFER Wilcox) History of knee replacement Family & Social History Family History Mother Heart disease Stroke Father Congestive heart failure Renal failure Social History: household members none Prior Living Arrangements House Safety & Behavioral: Feels Safe in Current Yes, patient lives alone, his daughter lives within 1 mi and comes in daily to provide assistance with ADLs patient is within the last year. Environment Suicidal Ideation Description None Suicide Plan Description No Plan Tobacco & Substance use: Smoking Status Never smoker alcohol intake current alcohol intake frequency 0-2 drinks per day Substance Use Type does not use Meds Home Medications and Allergies Home Medications Medication Instructions Recorded Confirmed Type K+ Potassium 20 meq PO BID 12/16/20 12/16/20 History Pepcid 20 mg PO PRN PRN 12/16/20 12/16/20 History Protonix 20 mg PO 12/16/20 History allopurinol 300 mg PO DAILY 12/16/20 12/16/20 History bumetanide 2 mg PO PRN PRN 12/16/20 12/16/20 History isosorbide (solution) 30 mg PO QD-BID 12/16/20 12/16/20 History levothyroxine 75 mg PO DAILY 12/16/20 12/16/20 History lisinopril 20 mg PO QD-BID 12/16/20 12/16/20 History methocarbamol 500 mg PO BID 12/16/20 12/16/20 History metoprolol succinate 100 mg PO DAILY 12/16/20 12/16/20 History pravastatin 20 mg PO QD-BID 12/16/20 12/16/20 History Allergies Allergy/AdvReac Type Severity Reaction Status Date / Time No Known Drug Allergies Allergy Verified 12/15/20 22:09 Review of Systems Review of Systems ROS: Yes All systems reviewed with the patient and are negative except as otherwise documented Constitutional Constitutional: Reports body ache(s), Reports chills, Reports fatigue and Reports frequent falls Neurologic Neurologic: Reports frequent falls Endocrine Endocrine: Reports fatigue Exam Vital Signs (past 8 hours): - 12/15/20 20:20 12/15/20 20:25 12/15/20 20:30 Temperature Pulse Rate 60 60 60 Respiratory Rate 22 21 17 Blood Pressure 74/39 L 78/40 L 73/48 L Pulse Oximetry 100 100 100 12/15/20 20:35 12/15/20 20:40 12/15/20 20:45 Temperature Pulse Rate 60 60 60 Respiratory Rate 15 21 17 Blood Pressure 77/52 L 79/47 L 77/48 L Pulse Oximetry 100 100 100 12/15/20 20:50 12/15/20 20:55 12/15/20 21:00 Temperature Pulse Rate 60 60 60 Respiratory Rate 24 23 25 H Blood Pressure 79/48 L 81/49 L 88/50 L Pulse Oximetry 100 100 100 12/15/20 21:05 12/15/20 21:19 12/15/20 21:20 Temperature Pulse Rate 60 60 60 Respiratory Rate 21 24 22 Blood Pressure 86/50 L 88/50 L 91/54 L Pulse Oximetry 100 100 98 12/15/20 21:25 12/15/20 21:27 12/15/20 21:30 Temperature Pulse Rate 59 L 59 L 59 L Respiratory Rate 15 17 17 Blood Pressure 132/63 147/67 H 119/55 L Pulse Oximetry 99 99 92 12/15/20 21:35 12/15/20 21:40 12/15/20 21:46 Temperature Pulse Rate 60 60 60 Respiratory Rate 16 17 21 Blood Pressure 78/40 L 140/66 155/69 H Pulse Oximetry 100 100 81 L 12/15/20 21:50 12/15/20 21:55 12/15/20 22:00 Temperature Pulse Rate 60 62 64 Respiratory Rate 18 18 20 Blood Pressure 157/70 H 165/72 H 139/66 Pulse Oximetry 97 96 96 12/15/20 22:19 12/15/20 22:20 12/15/20 22:25 Temperature Pulse Rate 69 63 68 Respiratory Rate 26 H 21 24 Blood Pressure 155/70 H 145/66 H 143/67 H Pulse Oximetry 99 99 99 12/15/20 22:30 12/15/20 22:35 12/15/20 22:40 Temperature 97.5 F L Pulse Rate 69 69 67 Respiratory Rate 24 25 H 34 H Blood Pressure 147/68 H 101/58 L 139/62 Pulse Oximetry 98 96 96 12/15/20 22:45 12/15/20 22:51 12/15/20 22:55 Temperature Pulse Rate 69 79 73 Respiratory Rate 24 34 H 35 H Blood Pressure 147/66 H 134/88 118/72 Pulse Oximetry 97 98 97 12/15/20 23:00 12/15/20 23:01 12/15/20 23:05 Temperature Pulse Rate 88 86 66 Respiratory Rate 34 H 32 H 25 H Blood Pressure 117/58 L 131/64 Pulse Oximetry 97 12/15/20 23:10 12/15/20 23:15 12/15/20 23:20 Temperature Pulse Rate 76 69 69 Respiratory Rate 33 H 20 15 Blood Pressure 143/65 H 130/61 129/59 L Pulse Oximetry 12/15/20 23:25 12/15/20 23:30 12/15/20 23:35 Temperature Pulse Rate 75 71 72 Respiratory Rate 29 H 34 H 22 Blood Pressure 128/60 136/64 133/60 Pulse Oximetry 12/15/20 23:39 12/15/20 23:40 12/15/20 23:45 Temperature 98.1 F Pulse Rate 67 75 72 Respiratory Rate 23 31 H 22 Blood Pressure 126/61 131/63 Pulse Oximetry 12/15/20 23:50 12/16/20 00:45 12/16/20 00:51 Temperature 98.0 F Pulse Rate 73 71 71 Respiratory Rate 26 H 31 H 25 H Blood Pressure 138/65 146/68 H Pulse Oximetry 100 12/16/20 00:53 12/16/20 01:00 12/16/20 01:15 Temperature Pulse Rate 74 74 76 Respiratory Rate 28 H 25 H 17 Blood Pressure 136/76 132/73 Pulse Oximetry 100 100 100 12/16/20 01:30 12/16/20 01:45 12/16/20 02:00 Temperature 98 F Pulse Rate 77 76 79 Respiratory Rate 22 22 23 Blood Pressure 119/58 L Pulse Oximetry 100 100 100 12/16/20 02:02 12/16/20 02:30 12/16/20 03:00 Temperature 97.7 F Pulse Rate 79 82 74 Respiratory Rate 20 22 22 Blood Pressure 124/67 123/62 115/57 L Pulse Oximetry 99 100 99 12/16/20 03:30 12/16/20 04:00 Temperature Pulse Rate 75 70 Respiratory Rate 20 18 Blood Pressure 111/77 114/59 L Pulse Oximetry 100 100 Oxygen Delivery Method Room Air Narrative Exam Narrative: : Patient is a well-developed, well-nourished in no distress at this time. HEENT: Normocephalic, atraumatic, extraocular muscles intact, oral pharynx is clear and mucous membranes are dry. Neck is supple and symmetric, trachea is midline, no adenopathy, no thyroid enlargement, nontender, no masses palpated. Negative for JVD Chest: Normal AP diameter and contour without kyphoscoliosis, no nasal flaring, retractions, or tachypneic labored Lungs: Auscultation of all lung [place] are clear without adventitious sounds, wheezes, rhonchi, or rales. Cardio: regular rate and rhythm without murmur, rubs, or gallops, no carotid bruit, no cardiac pulsations present. Pacemaker in place Abdomen: Soft nontender, negative for organomegaly, or masses. Bowel sounds are present in all 4 quadrants without guarding or rebound, no CVA tenderness. Musculoskeletal: Muscle strength and tone are equal within normal limits, no deformity, crepitus, effusions, cyanosis, clubbing or edema present. Full range of motion intact radial and pedal pulses are normal. Extremities:Ulcerated wound on dorsum of right 2nd toe with surrounding erythema extending into the dorsum of foot but no further. No bone exposure Skin: Warm dry and intact without rashes, ulcerations or petechiae. Neuro: Alert and orientated x3, strength is +5/5 in all extremities, sensation to touch intact, no gross deficits noted of cranial nerves. Psych: Patient has a well-kept appearance, appropriate affect, mental status attitude thought context and judgment are appropriate for age. Objective Labs Result Diagrams: 12/15/20 19:45 12/15/20 19:45 Labs: Laboratory Results - last 24 hr 12/15/20 12/15/20 12/15/20 19:45 19:45 19:45 WBC 9.0 RBC 3.28 L Hgb 12.8 L Hct 38.0 L MCV 115.9 H MCH 39.0 H MCHC 33.7 RDW 17.0 H Plt Count 240 Neut % (Auto) 63.7 Lymph % (Auto) 19.9 L Brooks % (Auto) 10.3 Eos % (Auto) 5.3 H Baso % (Auto) 0.8 Neut # (Auto) 5700 Lymph # (Auto) 1800 Brooks # (Auto) 900 Eos # (Auto) 500 H Baso # (Auto) 100 Platelet Estimate Adequate on smear RBC Morphology See below Macrocytosis 3+ H Sodium 132 L Potassium 4.0 Chloride 100 Carbon Dioxide 19 L BUN 60 H Creatinine 3.11 H Estimated GFR 19.7 L BUN/Creatinine Ratio 19.3 Glucose 94 Lactate 3.6 H Calcium 9.7 Magnesium Total Bilirubin 0.4 AST 24 ALT 14 Alkaline Phosphatase 120 Total Creatine Kinase 22 L CK-MB (CK-2) TNP CK-MB (CK-2) Rel Index TNP Troponin I 0.041 H Total Protein 7.8 Albumin 3.9 Globulin 3.9 Albumin/Globulin Ratio 1.0 Procalcitonin 0.31 Urine Color Urine Appearance Urine pH Ur Specific [place] Urine Protein Urine Glucose (UA) Urine Ketones Urine Occult Blood Urine Nitrate Urine Bilirubin Urine Urobilinogen Ur Leukocyte Esterase Urine RBC Urine WBC Urine Bacteria Ur Culture Indicated? SARS-CoV-2 (PCR) 12/15/20 12/15/20 12/15/20 19:45 20:27 22:02 WBC RBC Hgb Hct MCV MCH MCHC RDW Plt Count Neut % (Auto) Lymph % (Auto) Brooks % (Auto) Eos % (Auto) Baso % (Auto) Neut # (Auto) Lymph # (Auto) Brooks # (Auto) Eos # (Auto) Baso # (Auto) Platelet Estimate RBC Morphology Macrocytosis Sodium Potassium Chloride Carbon Dioxide BUN Creatinine Estimated GFR BUN/Creatinine Ratio Glucose Lactate 3.9 H Calcium Magnesium 1.8 Total Bilirubin AST ALT Alkaline Phosphatase Total Creatine Kinase CK-MB (CK-2) CK-MB (CK-2) Rel Index Troponin I Total Protein Albumin Globulin Albumin/Globulin Ratio Procalcitonin Urine Color Urine Appearance Urine pH Ur Specific [place] Urine Protein Urine Glucose (UA) Urine Ketones Urine Occult Blood Urine Nitrate Urine Bilirubin Urine Urobilinogen Ur Leukocyte Esterase Urine RBC Urine WBC Urine Bacteria Ur Culture Indicated? SARS-CoV-2 (PCR) Negative 12/16/20 02:31 WBC RBC Hgb Hct MCV MCH MCHC RDW Plt Count Neut % (Auto) Lymph % (Auto) Brooks % (Auto) Eos % (Auto) Baso % (Auto) Neut # (Auto) Lymph # (Auto) Brooks # (Auto) Eos # (Auto) Baso # (Auto) Platelet Estimate RBC Morphology Macrocytosis Sodium Potassium Chloride Carbon Dioxide BUN Creatinine Estimated GFR BUN/Creatinine Ratio Glucose Lactate Calcium Magnesium Total Bilirubin AST ALT Alkaline Phosphatase Total Creatine Kinase CK-MB (CK-2) CK-MB (CK-2) Rel Index Troponin I Total Protein Albumin Globulin Albumin/Globulin Ratio Procalcitonin Urine Color Yellow Urine Appearance Clear Urine pH 5.0 Ur Specific [place] 1.010 Urine Protein Negative Urine Glucose (UA) Negative Urine Ketones Negative Urine Occult Blood 1+ H Urine Nitrate Negative Urine Bilirubin Negative Urine Urobilinogen 0.2 Ur Leukocyte Esterase Negative Urine RBC None seen Urine WBC None seen Urine Bacteria None seen Ur Culture Indicated? Cult not indicated SARS-CoV-2 (PCR) Assessment & Plan Assessment & Plan narrative: This patient requires acute care inpatient hospital management for sepsis/septic shock due to pyelonephritis, with accompanying BLAINE and cellulitis toe, after failing outpatient management. The patient is at much higher risk for medical and surgical complications because of his history of HTN, DM with neuropathy, CHF, GERD, AFib and pacemaker. These factors increase the difficulty and complexity of medical and surgical interventions and increases the chances of poor outcomes such as morbidity and mortality. Expect patient with IV antibiotics and hydration to rapidly improve, expected length of stay less than 2 midnights. One septic shock/sepsis (septic/hypovolemic) related to cellulitis of the 2nd toe on the right foot, acute on chronic, resulting in BLAINE and hyponatremia, acute, present on admission -as evidence by creatinine of 3.11, GFR 19.7, lactate 3.6, procalcitonin 0.31 and a sofa score: 5, sodium 132, initial BP of severe hypotension 72/48 with a heart rate of 60 and respirations of 17. -I suspect this is the result of his untreated cellulitis of his toe, decreasing nutrition since he became a would or and dehydration. It was initially thought that the patient had pyelonephritis, urinalysis was negative culture was not indicated. I recommend monitoring patient's output and for possible urinary retention. -monitor airway, IV access x2 18-16 gauge, antiemetics for nausea and vomiting, hold diuretics possibly, consider electrolyte imbalance (K, Na, acid-base letty ce) -monitor for pulmonary edema as the patient has congestive heart failure -patient admitted to the ICU, placed on telemetry, vital signs Q hour until patient is hemodynamically stable and may progress to q.4 hours, I&O Q shift goal urinary output> 0.5 milliliters/kilogram per hour, weights daily, diet:Carb control Labs: CBC, CMP, lactate, blood cultures, procalcitonin -Antibiotic: vancomycin per pharmacy -norepinephrine (Levophed (-consider and hypotensive patient with a lactate> 4 mm a well during fluid resuscitation and after. Starting does between 0.05-0.15 micrograms/kilogram per minute titrate up to a map >65. -Monitor for arrhythmia, decrease left ventricular contractility, atrial dilation or constriction, impaired response to catecholamine vasopressors. Watch for increasing pCO2, monitor lactate, calcium, sodium. 2 atrial fibrillation controlled with pacemaker, chronic, not present on admission-well controlled -please note that patient's Eliquis was stopped by his security developer due to his frequent falls and risk of bleed 3. Hypertension in the setting of congestive heart failure, acute on chronic, not present on admission -BNP ordered. Patient's daughter was unable to provide an appropriate medication list or dosages and will provide it in the morning. 4. Type 2 diabetes with neuropathy, acute on chronic, not present on admission- well controlled -A1c ordered, patient admitted under diabetes protocol will monitor blood sugars and provide medications when we are advised by family. Code status: DNR Surrogate decision maker: daughter Sabina DELGADO PCR: Negative VTE/DVT prophylaxis: Lovenox 30 and SCDs Scores GCS [place] coma scale eye opening: Spontaneous [place] coma scale verbal response: Orientated [place] coma scale motor response: Obey commands [place] coma scale total score: 15 SOFA PaO2/FIO2: >=400 mmHg Platelets: >= 150 Bilirubin: < 1.2 mg/dL Hypotension: Dopamine >5 or norepinephrine <=0.1 [place] Coma Scale: 15 Renal: Creatinine 2.0-3.4 mg/dL SOFA Score: 5 Wells' Criteria for PE Clinical signs and symptoms of DVT: No PE is #1 Dx or equally likely: No Heart rate > 100: No Immobilization at least 3 days or surg in previous 4 weeks: No History of PE or DVT: No Hemoptysis: No Malignancy w/Treatment within 6 months or palliative: No Wells' PE Score total: 0 Quality MIPS - Admit I confirm the patient?s Advance Care Plan is present, Code status is documented, Surrogate decision maker is in patient?s record [If Yes, STOP here]: Yes
[2020-12-16 05:14] LABS: INR 1.1 (0.9-1.3); Prothrombin Time 12.4 SECONDS (10.1-12.7)
[2020-12-16 05:18] LABS: Alanine Aminotransferase 13 IU/L (<50); Albumin 2.9 g/dL (3.5-5.0); Albumin Globulin Ratio 0.9 (1.0-2.8); Alkaline Phosphatase 102 U/L (38-126); Aspartate Aminotransferase 25 IU/L (17-59); BUN Creatinine Ratio 20.5 (6-22); Bilirubin Total 0.2 mg/dL (0.2-1.3); Blood Urea Nitrogen 47 mg/dL (9-20); Calcium 8.7 mg/dL (8.4-10.2); Carbon Dioxide 19 mmol/L (22-32); Chloride 104 mmol/L (98-107); Estimated Glomerular Filt Rate 28.1 mL/min (>60); Globulin 3.3 g/dL (1.7-4.1); Glucose 105 mg/dL (80-110); HEMOLYSIS < 15 (0-50); Sodium 133 mmol/L (137-145); Total Protein 6.2 g/dL (6.3-8.2)
[2020-12-16 05:28] LABS: NT-proBNP (BNP-Adult 18+) 5190 pg/mL (<125)
[2020-12-16 05:43] LABS: Basophils Absolute Auto 0 /uL (0-100); Basophils Percent Auto 0.6 % (0-2); Eosinophils Absolute Auto 400 /uL (0-450); Eosinophils Percent Auto 5.1 % (2-4); Hematocrit 33.4 % (41-53); Hemoglobin 11.2 g/dL (13.5-17.5); Lymphocytes Absolute Auto 1300 /uL (1100-4500); Lymphocytes Percent Auto 18.1 % (25-40); Mean Corpuscular HGB Conc 33.6 % (30-36); Mean Corpuscular Hemoglobin 38.8 PG (26-34); Mean Corpuscular Volume 115.6 fL (80-100); Monocytes Absolute Auto 800 /uL (0-900); Neutrophils Absolute Auto 4800 /uL (1500-7000); Neutrophils Percent Auto 65.2 % (50-75); Platelet Count 209 X10^3/uL (150-400); Red Blood Cell Count 2.89 X10^6/uL (4.5-5.9); Red Cell Distribution Width 17.3 % (11.6-14.8); White Blood Cell Count 7.4 X10^3/uL (4.5-11.0)
[2020-12-16 05:45] LABS: Add Manual Diff / Slide Review SLIDE REVIEW
[2020-12-16 05:55] LABS: Magnesium 1.5 mg/dL (1.6-2.3)
[2020-12-16 06:06] LABS: Hemoglobin A1C% w Est Avg Glu 4.7 % (4.0-6.0)
[2020-12-16 06:16] LABS: Troponin I 0.353 ng/mL (0.01-0.034)
[2020-12-16] MEDS: MAGNESIUM SULFATE 2 GM/50 ML PIGGYBACK IV (06:44)
[2020-12-16] MEDS: PANTOPRAZOLE DR 40 MG TABLET PO (06:49)
--- NOTE | 2020-12-16 07:09 | PC.NURSE ---
Pt arrives from ED at 0000. Pt is A&Ox4 and in a pleasant mood. Pt denies CP, SOB, N/V. VS WNL. Pt reports 9/10 pain to his R toe were he has the infected wound. Toe infection is left open ti air. Pt arrived on norepi. drip at 8mcg/min. Pt was tritated down to 2mcg/min with a MAP >60. The norepinephrine was paused for 15 min and resulted in a MAP <60. Norepi. is at 2mcg/min at shift change with a MAP of 78. Pt treated with 5mg PO oxycodone for toe pain and slept the entire night. Pt reports last BM was 6/3 in the am and has been voiding in a urinal this shift.
[2020-12-16 07:21] LABS: Lactate (Lactic Acid) 1.6 mmol/L (0.7-2.1)
[2020-12-16 07:22] LABS: Anisocytosis 1+; Macrocytosis 2+
[2020-12-16] MEDS: ENOXAPARIN 30 MG/0.3 ML SYRINGE SUBCUT (08:36)
[2020-12-16] MEDS: ACETAMINOPHEN 325 MG TABLET 650 MG PO (08:37)
[2020-12-16] MEDS: DOCUSATE 100 MG CAPSULE PO ×2 (08:37→20:26)
[2020-12-16] MEDS: LACTATED RINGERS 1,000 ML 100 ML IV ×2 (08:38→18:36)
--- NOTE | 2020-12-16 09:21 | DI.RAD.S_ITS ---
PROCEDURE: XR CHEST FOR PICC 1V INDICATIONS: PICC placement verification COMPARISON: , , XR CHEST 1V, 12/15/2020, 19:47. FINDINGS: PICC was placed by the intravenous therapy team from the right side. Fluoroscopic spot film demonstrates the tip of PICC projecting to the area of SVC. Left chest wall pacemaker position is unchanged. No focal infiltrate, pleural effusion or pneumothorax. Heart size is enlarged. IMPRESSION: Tip of PICC projects to the area of SVC. Dictated by: Danny Zamora M.D. on 12/16/2020 at 9:57 Approved by: Danny Zamora M.D. on 12/16/2020 at 9:57
[2020-12-16] MEDS: NOREPINEPHRINE 4 MG in DEXTROSE 5% IN WATER 250 ML 7.62 ML IV (12:41)
[2020-12-16 13:51] LABS: Troponin I 0.386 ng/mL (0.01-0.034)
--- NOTE | 2020-12-16 14:06 | CM.DANOTE ---
Discharge Planning/Care Management DCP: assessment: case received, EMR reviewed and met with pt and his POA RN daughter Sabina Oswald. Introduced self and role. Pt is a 75 year old male who admitted to care of hospitalist team. PCP: Lashon Garay: [facility] [place]: [place] [employer] (pt has told [employer] he wishes this to be primary payer. He also has Medicare A and B.) Pt lives alone, is x 2 years and his goal is to remain in his home as long as possible. Sabina and her Rolando, also an RN, leave nearby along with their 2 teenage daughters and they watch over pt very closely. Pt does drive but agrees he will not be driving for awhile with his foot. Sabina says the family is very happy to be his transport. Has never had HH services but both see that this may be helpful at d/c (and would likely go through his Medicare, not his VA benefit. Pt has a lifeline, does not use it. Says today that he needs to rethink that. Both he and Sabina confirm that he has been falling at home routinely for about 6 months. This has been increasing in frequency with falls now at 10-15 times a month. He used to be able to get himself up, now often relies on family and, increasingly, plant safety leader. Both say it has helped to voice this and pt acknowledges that perhaps I am not doing so well on my own at home anymore. He has always resisted idea of HH coming in but sees that OT/PT with home safely eval would be very helpful. Assured both that the DCP team would be following as POC unfolds to assist with d/c issues and options. Pt is currently on 2 IV antibiotics and and being treated for septic shock/cellulitis of R foot. Full dx and tx plan are in process. CM Discharge Assessment Start: 12/16/20 14:02 Freq: Status: Active Protocol: Document 12/16/20 14:02 ITV (Rec: 12/16/20 14:06 ITV [id number]) Discharge Planning Assessment DPOA/Assigned Designee Name Sabina Oswald/ZANE Contact Information [phone] and [phone] Advance Directives? Yes Advance Directives on File Yes History Provided By Patient,Family Member,Medical Record Prior Living Arrangements House Household Members none Type of transporation used prior to Drives own vehicle admit Independent with ADL's Yes: frequent falls Is patient alert and oriented? Yes DME Already Rented / Owned Wheelchair,FWW / Walker,Cane Comment uses cane outside 4ww inside has new/unused w/c in the garage Whiteboard Updated in Patient Room with Yes name and ext. # of On Site Property Manager Review Status In Process
--- NOTE | 2020-12-16 14:18 | PC.NURSE ---
Pt spent this day shift resting in bed. Pt has denied CP, SOB, dizziness or N/V. Pt ahs been voiding into a urinal and his 9 R toe pain had been successfully treated with one dose of oxycodone and tylenol. Gauze applied to between toes to keep adjacent toe off of wound. Pt titrated on norepinephrine drip between 2mcg/min and 3 mcg/min with goal of a MAP >60. Pt ate 1/4 of breakfast and lunch and has been voiding in his urinal. No BM this shift. Pt's troponin has gone from 0.041 to 0.353 and then 0.386. MD is aware and orders for an EKG and serial troponins had been ordered. Pt continues to deny CP.
--- NOTE | 2020-12-16 15:56 | DIET.PN ---
Dietary Progress Note Assessment: 75y M c pmhx DM admitted for wound on toe and hypotension screened by RD for reported 100# weight loss. HT: 177.8cm WT: 80.5kg UBW: 125kg BMI: 25.5 Labs: A1c 4.7, Na 132 L, Cr 2.29 H (trending down from 3.11), eGFR 28.1 L (trending up from 19.7), mg 1.5 L, troponin elevated RD visit c pt and his daughter. Daughter and LAURA both nurses, this RD knows LAURA as Diabetes RN for [facility] in [place]. They provide meals to pt daily and help him with care in the home which can be difficult as they have teenage children. Pts spouse who he was very close with suddenly 2y ago and pt lost desire to eat. Per pts daughter, we bring him food and he is not a picky eater, but he lacks desire to eat. Pt has lost 100# unintentionally over past 2y. Pts daughter feels pts weight loss has slowed since Sep 04 when the aunties started coming over to help with cooking, cleaning and meal prep. Pt having difficulty recalling usual intake other than sometimes eating breakfast, usually skipping lunch, and having a few bites of dinner. Pt has significant tremor in both hands, pt endorses difficulty c tasks but states he has had tremors since 18yo. MNA: 7 malnourished Isaias: 17 @ risk for skin breakdown Nutrition Diagnosis: Severe Chronic Malnutrition r/t physical and psychological reasons aeb 38% unintentional weight loss in 2y (severe) secondary to grief over sudden passing of spouse, pt generally only eats one meal per day, DM2 c A1c 4.7, pt has bilateral hand tremors which interfere with self-feeding and food preparation. Interventions: 1. Discussed nutrients for wound healing including PRO, Vits A, C, and zinc. Discussed food sources of each with daughter present. Pt likes foods from all categories. Discussed batch cooking chili containing squash, beans, jackson peppers, ground meat as wound support soup. 2. Worked c pt and his daughter on meal ideas at home. Pt likes over easy eggs c toast or bran muffin for breakfast, would prefer a couple small snacks instead of a lunch, and happy with current dinner options. 3. While hospitalized, recc ONS Magdaleno bid and ONS Ensure Max (vanilla) to support wound healing and to introduce kcals/mins/vits/PRO for this gentleman with low appetite. 4. Recc weighted silverware to assist c self feeding. Pts daughter will purchase for home use if pt feels they are helpful. Diet Order: CCD4 EER: 2,000 kcal (25kcal/kg), 96g PRO (1.2g/kg per PCM and wounds, watching renal fxn) Monitoring/Evaluations: renal fxn, POs, ONS tolerance
--- NOTE | 2020-12-16 16:17 | P.PN_ITS ---
Subjective Subjective Date Patient Seen: 12/16/20 Interval history: Patient is 75-year-old male with history of neuropathy secondary to diabetes, hypertension, atrial fibrillation, ventricular pacemaker, CHF of unknown type admitted with septic shock due to acute cellulitis of the right foot. The cellulitis is associated with ulcer of the 2nd toe. Patient remains on small amount of Levophed during most of the day as his map falls below 65 when we tried to discontinue the Levophed. He completed initial sepsis fluid resuscitation and on LR 100 cc/hour. The 4 hour lactate was normal. He is on broad-spectrum antibiotics with vancomycin and meropenem. He also had elevation of troponin consistent with type 2 RI due to demand related ischemia. He is in paced ventricular rhythm. Patient is awake and eating and complains of mild discomfort in the foot. Exam Vital Signs (past 8 hours): - 12/16/20 08:25 12/16/20 08:30 12/16/20 08:35 Temperature Pulse Rate 63 65 70 Respiratory Rate 16 22 Blood Pressure 101/56 L Pulse Oximetry 99 100 98 12/16/20 09:00 12/16/20 09:30 12/16/20 09:40 Temperature Pulse Rate 64 62 66 Respiratory Rate 23 21 19 Blood Pressure 85/48 L 139/65 Pulse Oximetry 98 100 96 12/16/20 10:00 12/16/20 10:01 12/16/20 10:30 Temperature 97.0 F L Pulse Rate 63 63 62 Respiratory Rate 16 14 24 Blood Pressure 101/51 L 99/53 L Pulse Oximetry 96 96 97 12/16/20 10:35 12/16/20 11:00 12/16/20 11:10 Temperature Pulse Rate 67 61 60 Respiratory Rate 20 14 Blood Pressure 103/58 L Pulse Oximetry 96 97 100 12/16/20 11:30 12/16/20 11:35 12/16/20 12:00 Temperature Pulse Rate 60 60 69 Respiratory Rate 13 13 19 Blood Pressure 103/57 L 108/54 L Pulse Oximetry 98 99 100 12/16/20 12:30 12/16/20 13:01 12/16/20 13:30 Temperature 97.9 F 96.1 F L Pulse Rate 65 60 59 L Respiratory Rate 20 17 26 H Blood Pressure 110/58 L 92/46 L 89/50 L Pulse Oximetry 99 100 99 12/16/20 13:45 12/16/20 14:00 12/16/20 14:05 Temperature Pulse Rate 61 61 63 Respiratory Rate 17 22 21 Blood Pressure 95/52 L Pulse Oximetry 99 99 99 12/16/20 14:30 12/16/20 15:00 Temperature Pulse Rate 60 61 Respiratory Rate 19 17 Blood Pressure 99/53 L 103/57 L Pulse Oximetry 99 98 Oxygen Delivery Method Room Air Narrative Exam Narrative: General: Alert and comfortable Lungs: Clear to auscultation Heart: Regular rhythm Abdomen: Soft Extremities: No edema, there is a moist ulcer on top of the right 2nd toe with erythema of the toe extending proximally to the mid foot Objective Labs Result Diagrams: 12/16/20 04:35 12/16/20 04:35 Labs: Laboratory Results - last 24 hr 12/15/20 12/15/20 12/15/20 19:45 19:45 19:45 WBC 9.0 RBC 3.28 L Hgb 12.8 L Hct 38.0 L MCV 115.9 H MCH 39.0 H MCHC 33.7 RDW 17.0 H Plt Count 240 Neut % (Auto) 63.7 Lymph % (Auto) 19.9 L [place] % (Auto) 10.3 Eos % (Auto) 5.3 H Baso % (Auto) 0.8 Neut # (Auto) 5700 Lymph # (Auto) 1800 [place] # (Auto) 900 Eos # (Auto) 500 H Baso # (Auto) 100 Platelet Estimate Adequate on smear Clumped Platelets RBC Morphology See below Anisocytosis Macrocytosis 3+ H PT INR Sodium 132 L Potassium 4.0 Chloride 100 Carbon Dioxide 19 L BUN 60 H Creatinine 3.11 H Estimated GFR 19.7 L BUN/Creatinine Ratio 19.3 Glucose 94 Hemoglobin A1c Lactate 3.6 H Calcium 9.7 Magnesium Total Bilirubin 0.4 AST 24 ALT 14 Alkaline Phosphatase 120 Total Creatine Kinase 22 L CK-MB (CK-2) TNP CK-MB (CK-2) Rel Index TNP Troponin I 0.041 H NT-Pro-B Natriuret Pep Total Protein 7.8 Albumin 3.9 Globulin 3.9 Albumin/Globulin Ratio 1.0 Procalcitonin 0.31 Urine Color Urine Appearance Urine pH Ur Specific [place] Urine Protein Urine Glucose (UA) Urine Ketones Urine Occult Blood Urine Nitrate Urine Bilirubin Urine Urobilinogen Ur Leukocyte Esterase Urine RBC Urine WBC Urine Bacteria Ur Culture Indicated? Nasal Screen MRSA (PCR) SARS-CoV-2 (PCR) 12/15/20 12/15/20 12/15/20 19:45 20:27 22:02 WBC RBC Hgb Hct MCV MCH MCHC RDW Plt Count Neut % (Auto) Lymph % (Auto) [place] % (Auto) Eos % (Auto) Baso % (Auto) Neut # (Auto) Lymph # (Auto) [place] # (Auto) Eos # (Auto) Baso # (Auto) Platelet Estimate Clumped Platelets RBC Morphology Anisocytosis Macrocytosis PT INR Sodium Potassium Chloride Carbon Dioxide BUN Creatinine Estimated GFR BUN/Creatinine Ratio Glucose Hemoglobin A1c Lactate 3.9 H Calcium Magnesium 1.8 Total Bilirubin AST ALT Alkaline Phosphatase Total Creatine Kinase CK-MB (CK-2) CK-MB (CK-2) Rel Index Troponin I NT-Pro-B Natriuret Pep Total Protein Albumin Globulin Albumin/Globulin Ratio Procalcitonin Urine Color Urine Appearance Urine pH Ur Specific [place] Urine Protein Urine Glucose (UA) Urine Ketones Urine Occult Blood Urine Nitrate Urine Bilirubin Urine Urobilinogen Ur Leukocyte Esterase Urine RBC Urine WBC Urine Bacteria Ur Culture Indicated? Nasal Screen MRSA (PCR) SARS-CoV-2 (PCR) Negative 12/16/20 12/16/20 12/16/20 02:31 03:31 04:35 WBC 7.4 RBC 2.89 L Hgb 11.2 L Hct 33.4 L MCV 115.6 H MCH 38.8 H MCHC 33.6 RDW 17.3 H Plt Count 209 Neut % (Auto) 65.2 Lymph % (Auto) 18.1 L [place] % (Auto) 11.0 Eos % (Auto) 5.1 H Baso % (Auto) 0.6 Neut # (Auto) 4800 Lymph # (Auto) 1300 [place] # (Auto) 800 Eos # (Auto) 400 Baso # (Auto) 0 Platelet Estimate Clumped Platelets RBC Morphology See below Anisocytosis 1+ H Macrocytosis 2+ H PT INR Sodium Potassium Chloride Carbon Dioxide BUN Creatinine Estimated GFR BUN/Creatinine Ratio Glucose Hemoglobin A1c Lactate Calcium Magnesium Total Bilirubin AST ALT Alkaline Phosphatase Total Creatine Kinase CK-MB (CK-2) CK-MB (CK-2) Rel Index Troponin I NT-Pro-B Natriuret Pep Total Protein Albumin Globulin Albumin/Globulin Ratio Procalcitonin Urine Color Yellow Urine Appearance Clear Urine pH 5.0 Ur Specific [place] 1.010 Urine Protein Negative Urine Glucose (UA) Negative Urine Ketones Negative Urine Occult Blood 1+ H Urine Nitrate Negative Urine Bilirubin Negative Urine Urobilinogen 0.2 Ur Leukocyte Esterase Negative Urine RBC None seen Urine WBC None seen Urine Bacteria None seen Ur Culture Indicated? Cult not indicated Nasal Screen MRSA (PCR) Positive for mrsa H SARS-CoV-2 (PCR) 12/16/20 12/16/20 12/16/20 04:35 04:35 04:35 WBC RBC Hgb Hct MCV MCH MCHC RDW Plt Count Neut % (Auto) Lymph % (Auto) [place] % (Auto) Eos % (Auto) Baso % (Auto) Neut # (Auto) Lymph # (Auto) [place] # (Auto) Eos # (Auto) Baso # (Auto) Platelet Estimate Clumped Platelets RBC Morphology Anisocytosis Macrocytosis PT 12.4 INR 1.1 Sodium 133 L Potassium 4.0 Chloride 104 Carbon Dioxide 19 L BUN 47 H Creatinine 2.29 H Estimated GFR 28.1 L BUN/Creatinine Ratio 20.5 Glucose 105 Hemoglobin A1c Lactate Calcium 8.7 Magnesium 1.5 L Total Bilirubin 0.2 AST 25 ALT 13 Alkaline Phosphatase 102 Total Creatine Kinase CK-MB (CK-2) CK-MB (CK-2) Rel Index Troponin I 0.353 H* NT-Pro-B Natriuret Pep 5190 H Total Protein 6.2 L Albumin 2.9 L Globulin 3.3 Albumin/Globulin Ratio 0.9 L Procalcitonin Urine Color Urine Appearance Urine pH Ur Specific [place] Urine Protein Urine Glucose (UA) Urine Ketones Urine Occult Blood Urine Nitrate Urine Bilirubin Urine Urobilinogen Ur Leukocyte Esterase Urine RBC Urine WBC Urine Bacteria Ur Culture Indicated? Nasal Screen MRSA (PCR) SARS-CoV-2 (PCR) 12/16/20 12/16/20 12/16/20 04:35 07:04 13:18 WBC RBC Hgb Hct MCV MCH MCHC RDW Plt Count Neut % (Auto) Lymph % (Auto) [place] % (Auto) Eos % (Auto) Baso % (Auto) Neut # (Auto) Lymph # (Auto) [place] # (Auto) Eos # (Auto) Baso # (Auto) Platelet Estimate Clumped Platelets RBC Morphology Anisocytosis Macrocytosis PT INR Sodium Potassium Chloride Carbon Dioxide BUN Creatinine Estimated GFR BUN/Creatinine Ratio Glucose Hemoglobin A1c 4.7 Lactate 1.6 Calcium Magnesium Total Bilirubin AST ALT Alkaline Phosphatase Total Creatine Kinase CK-MB (CK-2) CK-MB (CK-2) Rel Index Troponin I 0.386 H* NT-Pro-B Natriuret Pep Total Protein Albumin Globulin Albumin/Globulin Ratio Procalcitonin Urine Color Urine Appearance Urine pH Ur Specific [place] Urine Protein Urine Glucose (UA) Urine Ketones Urine Occult Blood Urine Nitrate Urine Bilirubin Urine Urobilinogen Ur Leukocyte Esterase Urine RBC Urine WBC Urine Bacteria Ur Culture Indicated? Nasal Screen MRSA (PCR) SARS-CoV-2 (PCR) [facility] Medical History (Updated 12/16/20 @ 04:55 by TERRY Wilcox-MATEO) Coarse tremors Congestive heart failure Control of atrial fibrillation with pacemaker Depression GERD (gastroesophageal reflux disease) Gout Hypertension Type 2 diabetes mellitus with diabetic neuropathy Surgical History (Updated 12/16/20 @ 04:55 by JENNIFER Wilcox) History of knee replacement Family History Mother Heart disease Stroke Father Congestive heart failure Renal failure Social History household members: none Smoking Status: Never smoker alcohol intake: current Assessment & Plan Assessment & Plan narrative: 1. Septic shock secondary to right foot cellulitis associated with ulcer of 2nd toe -presented with refractory hypotension requiring pressor support, BLAINE, lactate 3.6 and sofa score of 5 -continue volume support and taper off Levophed -continue vancomycin and meropenem for broad-spectrum coverage -blood and wound cultures pending 2. Acute kidney injury, on chronic kidney disease -creatinine 3.11 on admit, last known creatinine 1.75 on 09/11/2020 -continue management of sepsis as above -repeat labs in a.m. 3. Type 2 RI demand related ischemia -patient with significant troponin elevation consistent with demand ischemia -continue supporting blood pressure and management of sepsis -obtain echo 4. Atrial fibrillation, controlled with pacemaker, chronic -patient is in ventricular paced rhythm, he was taken off Eliquis by his hand cultivator due to frequent falls and risk of bleed -metoprolol on hold due to low blood pressure 5. Congestive heart failure unknown type, without exacerbation -per med list, patient takes bumetanide 2 mg ?as needed?, isosorbide 30 mg q.d. to b.i.d., lisinopril 20 mg q.d. to b.i.d., metoprolol succinate 100 mg q.d. and pravastatin, not sure why his medications are ordered this way -meds with potential of BP lowering on hold due to sepsis related hypotension -monitor for volume overload with IV fluid resuscitation -there are no records of prior echo on [facility] or PACs -obtain cardiology records 6. History of type 2 diabetes with neuropathy, controlled -A1c 4.7, he does not appear to be on any diabetes medications at home 7. Hypomagnesemia -magnesium 1.5, received 2 g magnesium sulfate -repeat lab in a.m. DVT prophylaxis: Lovenox Code status: Full code Total critical care floor management time of up to 1 hour in today's evaluation.
--- NOTE | 2020-12-16 16:40 | DI.ECHO.S_ITS ---
[facility]---------+ [facility] +---------+ : : [address] [place] : : : : [id number] : : : : Phone: [phone]+ Echocardiogram Report + + :Name: SAMARA MANUEL Study Date: 12/18/2020 Height: 70 in : :[facility] ReadingLocation: Weight: 177 lb : : Gender: Male BSA: 2.0 m2 : :: 1945 Age: 75 yrs BP: 111/58 mmHg: :Reason For Study: [place], SEPSIS : :Ordering Physician: DAVIDE, : :LINNEA Performed By: Tavia Russ : :Referring: LINNEA [place] : + + Interpretation Summary The left ventricle is normal in size and wall thickness. Left ventricular systolic function appears normal without focal wall motion abnormalities. The ejection fraction is estimated to be 55-60%. The right ventricle is mildly dilated. There is a pacemaker lead in the right ventricle. The right ventricular systolic function is normal. The right ventricular systolic pressure is estimated to be at least 25 mmHg based on an estimated right atrial pressure of 3 mm Hg. The left atrium is mildly dilated. The right atrium is severely dilated. There is mild mitral regurgitation. A bicuspid aortic valve cannot be excluded. The aortic valve is moderately calcified. Cannot exclude endocarditis. Recommend CECI if clinically suspicious for endocaritis. There is mild to moderate aortic regurgitation. There is mild to moderate pulmonic regurgitation. The ascending aorta is mildly enlarged. Procedure: A two-dimensional transthoracic echocardiogram with color flow and Doppler was performed. The study quality was technically adequate. There is no prior echocardiogram noted for this patient. The patient has a paced rhythm. The heart rate ranged between 58-63 bpm during the study. Left Ventricle: The left ventricle is normal in size and wall thickness. Left ventricular systolic function appears normal without focal wall motion abnormalities. The ejection fraction is estimated to be 55-60%. Right Ventricle: The right ventricle is mildly dilated. There is a pacemaker lead in the right ventricle. The right ventricular systolic function is normal. Atria: The left atrium is mildly dilated. The right atrium is severely dilated. There is a catheter/pacemaker lead seen in the right atrium. There is no Doppler evidence for an interatrial shunt. Mitral Valve: The mitral valve leaflets appear mildly thickened, but open well. There is mild mitral regurgitation. There are multiple regurgitant jets present. Aortic Valve: A bicuspid aortic valve cannot be excluded. The aortic valve is moderately calcified. The peak aortic velocity is 2.0 m/sec. The aortic valve mean gradient is 8 mmHg. There is mild to moderate aortic regurgitation. Tricuspid Valve: The tricuspid valve is normal in structure and function. There is mild tricuspid regurgitation. The right ventricular systolic pressure is estimated to be at least 25 mmHg based on an estimated right atrial pressure of 3 mm Hg. Pulmonic Valve: The pulmonic valve is not well visualized. There is mild to moderate pulmonic regurgitation. Great Vessels: The aortic root is normal size. The ascending aorta is mildly enlarged. The IVC is of normal diameter and collapses greater than 50% with a sniff. This suggests a low right atrial pressure of 3 mm Hg. Pericardium/ Pleura There is no pericardial effusion. There is no pleural effusion. MMode/2D Measurements & Calculations LVIDd: 5.9 cm LVOT diam: 2.1 cm LVIDs: 4.3 cm Ao root diam: 3.8 cm FS: 26.3 % asc Aorta Diam: 3.6 cm IVSd: 1.1 cm LVPWd: 1.0 cm LV gold. diameter/BSA (cm/m^2): 3.0 LV sys. diameter/BSA (cm/m^2): 2.2 LA A2 area: 19.8 cm2 RA long axis: 5.7 cm LA A4 area: 23.8 cm2 RA area: 25.9 cm2 LA length (vol): 5.3 cm RA vol: 100.9 ml LA vol: 75.5 ml RA : 50.9 ml/m2 LA vol index: 38.1 ml/m2 IVC diam: 1.5 cm RVD1 (basal): 4.7 cm TAPSE: 1.8 cm Doppler Measurements & Calculations Ao V2 max: 206.1 cm/sec LVOT Max Ata: 55.6 cm/sec Ao V2 mean: 130.6 cm/sec LV V1 max P.2 mmHg Ao max P.0 mmHg LV V1 VTI: 12.5 cm Ao mean P.9 mmHg DESIRE(I,D): 1.1 cm2 Ao V2 VTI: 41.2 cm DESIRE(V,D): 0.94 cm2 sev ratio: 0.30 DESIRE indexed to BSA (cm^2/m^2): 0.53 MV E max ata: 106.1 cm/sec TR max ata: 232.0 cm/sec MV A max ata: 0.82 cm/sec TR max P.5 mmHg MV E/A: 128.9 PA pr(Accel): 41.6 mmHg Med Peak E' Ata: 4.5 cm/sec E/E' med: 23.7 MV dec time: 0.21 sec SV(LVOT): 43.6 ml Reading Physician:02:58 PM
[2020-12-16] MEDS: SODIUM CHLORIDE 0.9% FLUSH 10 ML IV ×2 (18:01→20:27)
[2020-12-16] MEDS: SENNOSIDES 8.6 MG TABLET 17.2 MG PO (20:26)
[2020-12-16] MEDS: PRAVASTATIN 20 MG TABLET PO (20:47)
[2020-12-16 21:30] LABS: Troponin I 0.233 ng/mL (0.01-0.034)
[2020-12-17] VITALS (31 sets, daily range): BP systolic 89–123; BP diastolic 51–60; PULSE 57–80; RESP 11–21; TEMP 36.1–36.9; O2SAT 75–100
[2020-12-17] MEDS: LACTATED RINGERS 1,000 ML 100 ML IV (04:27)
[2020-12-17 05:24] LABS: HCO3 VBG 22 mmol/L (23-28); Oxygen Saturation VBG 69 % (70-75); PCO2 VBG 34.3 mmHg (45-50); PO2 VBG 36 mmHg (35-45); Total CO2 VBG 23 mmol/L (24-29); pH VBG 7.41 (7.33-7.43)
[2020-12-17 05:41] LABS: Basophils Absolute Auto 0 /uL (0-100); Basophils Percent Auto 0.6 % (0-2); Eosinophils Absolute Auto 400 /uL (0-450); Eosinophils Percent Auto 6.7 % (2-4); Hematocrit 28.1 % (41-53); Hemoglobin 9.6 g/dL (13.5-17.5); Lymphocytes Absolute Auto 1200 /uL (1100-4500); Lymphocytes Percent Auto 21.4 % (25-40); Mean Corpuscular HGB Conc 34.3 % (30-36); Mean Corpuscular Hemoglobin 39.2 PG (26-34); Mean Corpuscular Volume 114.4 fL (80-100); Monocytes Absolute Auto 500 /uL (0-900); Monocytes Percent Auto 9.4 % (3-14); Neutrophils Absolute Auto 3500 /uL (1500-7000); Neutrophils Percent Auto 61.9 % (50-75); Platelet Count 164 X10^3/uL (150-400); Red Blood Cell Count 2.46 X10^6/uL (4.5-5.9); Red Cell Distribution Width 16.9 % (11.6-14.8); White Blood Cell Count 5.6 X10^3/uL (4.5-11.0)
[2020-12-17] MEDS: VANCOMYCIN 1,000 MG/200 ML PIGGYBACK 200 MG IV (05:41)
[2020-12-17] MEDS: LEVOTHYROXINE 75 MCG TABLET PO (05:41)
[2020-12-17 05:42] LABS: Alanine Aminotransferase 9 IU/L (<50); Albumin 2.2 g/dL (3.5-5.0); Albumin Globulin Ratio 0.8 (1.0-2.8); Alkaline Phosphatase 90 U/L (38-126); Aspartate Aminotransferase 19 IU/L (17-59); BUN Creatinine Ratio 27.3 (6-22); Bilirubin Total 0.2 mg/dL (0.2-1.3); Blood Urea Nitrogen 38 mg/dL (9-20); Calcium 8.4 mg/dL (8.4-10.2); Carbon Dioxide 22 mmol/L (22-32); Chloride 103 mmol/L (98-107); Globulin 2.8 g/dL (1.7-4.1); Glucose 92 mg/dL (80-110); HEMOLYSIS < 15 (0-50); Potassium 3.7 mmol/L (3.4-5.1); Sodium 131 mmol/L (137-145)
[2020-12-17 05:45] LABS: Add Manual Diff / Slide Review SLIDE REVIEW
[2020-12-17 05:58] LABS: Magnesium 1.7 mg/dL (1.6-2.3)
[2020-12-17 07:11] LABS: Macrocytosis 2+; Platelet Estimate Adequate on smear
[2020-12-17] MEDS: MEROPENEM 1 GM in SODIUM CHLORIDE 0.9% 100 ML 200 ML IV ×2 (08:52→21:10)
[2020-12-17] MEDS: MAGNESIUM HYDROXIDE 30 ML UDC PO (08:52)
[2020-12-17] MEDS: PANTOPRAZOLE DR 20 MG TABLET PO (08:53)
[2020-12-17] MEDS: ACETAMINOPHEN 325 MG TABLET 650 MG PO (08:53)
[2020-12-17] MEDS: DOCUSATE 100 MG CAPSULE PO ×2 (08:54→21:11)
[2020-12-17] MEDS: ENOXAPARIN 40 MG/0.4 ML SYRINGE SUBCUT (08:54)
[2020-12-17] MEDS: SODIUM CHLORIDE 0.9% FLUSH 10 ML IV ×2 (08:54→21:11)
--- NOTE | 2020-12-17 09:52 | DI.CT.S_ITS ---
PROCEDURE: CT LE RT WO CON INDICATIONS: osteomyelitis of R 2nd toe? TECHNIQUE: Noncontrast 1-1.5 mm axial sections acquired from above the tibiotalar joint to the bottom of the calcaneus, with coronal and sagittal reformats. COMPARISON: [facility], CR, XR CHEST FOR PICC 1V, 12/16/2020, 9:33. [facility], CR, XR CHEST FOR PICC 1V, 12/16/2020, 9:47. [facility], CR, XR TOE RT MIN 2V, 12/15/2020, 19:47. FINDINGS: Image quality: Excellent. Bones: No osteomyelitis found. Soft tissues: Mild soft tissue edema distal 2nd digit. IMPRESSION: No CT evidence of osteomyelitis. Small vessel calcifications are present consistent with longstanding diabetes. Dictated by: Laz Goodrich M.D. on 12/17/2020 at 12:29 Approved by: Laz Goodrich M.D. on 12/17/2020 at 12:33
--- NOTE | 2020-12-17 14:34 | PC.NURSE ---
PT DOING BETTER- VSS REMAINS OFF LEVOPHED ENTIRE DAY SHIFT- TAKING DIET FAIR NO N/V - NEEDS BM AND GIVING BOWEL RX TODAY- VISIT WITH DAUGHTER - SHE UPDATED STAFF TO THE FACT THAT HER FATHER DRINKS ETOH HEAVILY APPROX 1/2 GALLON OF VODKA Q 3 DAYS WITH INTERMITTENT BEER WELL- PT WITH OBVIOUS TREMORS THAT HE STATED TO ME HAVE HAD THESE FOR YEARS WILL UPDATE MD AND INITIATE CIWA ASSESSMENT
[2020-12-17] MEDS: LORazepam 2 MG/ML INJ 1 MG IV (17:07)
--- NOTE | 2020-12-17 18:14 | PC.NURSE ---
Addendum entered by Heidi Gaston R.N. 12/17/20 23:21: Patient's CIWA scores increased throughout evening, ranging 4-14. Ativan given per protocol. Patient is A/O to self only. Occasionally refers to other people in the room that aren't there, when pressed he just says nevermind. BP is low but MAP adequate. Self removed L forearm PIV. PICC line and R AC IV intact. Incontinent, multiple BMs during shift. Echo order pending, needs wound care consult for toe. Original Note: Daughter reported patient having a tonic clonic seizure, this was unwitnessed by staff. Per daughter, patient drinks a handle of vodka every few days as well as beer. Patient denies drinking more than a drink or two a day on bad days. CIWA was assessed 4 at start of shift, now 6. 1 mg Ativan given initially per order by hospitalist. Will follow CIWA protocol. Seizure precautions in place. Patient's vitals unchanged, mental status unchanged.
--- NOTE | 2020-12-17 18:46 | PM.PN.1 ---
Subjective Subjective Date Patient Seen: 12/17/20 Time Patient Seen: 07:46 Interval history: Today the patient said his foot was feeling much improved. He was off of levophed earlier this morning. His pain is improved. This afternoon the daughter of patient, who is an RN, noted that patient had possibly tonic clonic seizure. Once floor RN went in he was noted to be conversant but tremulous. Patient's daughter stated patient has significant alcohol abuse, which patient is minimizing. He denies any withdrawal history. Exam Vital Signs (past 8 hours): - 12/17/20 11:00 12/17/20 12:00 12/17/20 13:10 Temperature 98.4 F Pulse Rate 60 57 L 61 Respiratory Rate 15 17 Blood Pressure 98/54 L 90/51 L Pulse Oximetry 99 95 12/17/20 16:02 12/17/20 17:28 Temperature 97.6 F Pulse Rate 70 62 Respiratory Rate 18 19 Blood Pressure 103/58 L Pulse Oximetry 91 Oxygen Delivery Method Room Air Oxygen Flow Rate 0 Narrative Exam Narrative: General: no acute distress HEENT: moist mucous membranes, no JVD Lungs: clear bilaterally, no wheezes, rhonchi, rales Heart: Regular rhythm with no murmurs Abdomen: Soft, nontender, nondistended, no organomegaly, normal bowel sounds Extremities: No edema, there is a moist ulcer on top of the right 2nd toe with erythema of the toe extending proximally to the mid foot Objective Labs Result Diagrams: 12/17/20 05:28 12/17/20 05:28 Labs: Laboratory Results - last 24 hr 12/16/20 12/17/20 12/17/20 20:42 05:05 05:28 WBC 5.6 RBC 2.46 L Hgb 9.6 L Hct 28.1 L MCV 114.4 H MCH 39.2 H MCHC 34.3 RDW 16.9 H Plt Count 164 Neut % (Auto) 61.9 Lymph % (Auto) 21.4 L [place] % (Auto) 9.4 Eos % (Auto) 6.7 H Baso % (Auto) 0.6 Neut # (Auto) 3500 Lymph # (Auto) 1200 [place] # (Auto) 500 Eos # (Auto) 400 Baso # (Auto) 0 Platelet Estimate Adequate on smear RBC Morphology See below Macrocytosis 2+ H VBG pH 7.41 VBG pCO2 34.3 L VBG pO2 36 VBG HCO3 22 L VBG Total CO2 23 L VBG O2 Saturation 69 L VBG Base Excess -3.0 L Sodium Potassium Chloride Carbon Dioxide BUN Creatinine Estimated GFR BUN/Creatinine Ratio Glucose Calcium Magnesium Total Bilirubin AST ALT Alkaline Phosphatase Troponin I 0.233 H* Total Protein Albumin Globulin Albumin/Globulin Ratio 12/17/20 12/17/20 05:28 05:28 WBC RBC Hgb Hct MCV MCH MCHC RDW Plt Count Neut % (Auto) Lymph % (Auto) [place] % (Auto) Eos % (Auto) Baso % (Auto) Neut # (Auto) Lymph # (Auto) [place] # (Auto) Eos # (Auto) Baso # (Auto) Platelet Estimate RBC Morphology Macrocytosis VBG pH VBG pCO2 VBG pO2 VBG HCO3 VBG Total CO2 VBG O2 Saturation VBG Base Excess Sodium 131 L Potassium 3.7 Chloride 103 Carbon Dioxide 22 BUN 38 H Creatinine 1.39 H Estimated GFR 50.0 L BUN/Creatinine Ratio 27.3 H Glucose 92 Calcium 8.4 Magnesium 1.7 Total Bilirubin 0.2 AST 19 ALT 9 Alkaline Phosphatase 90 Troponin I Total Protein 5.0 L Albumin 2.2 L Globulin 2.8 Albumin/Globulin Ratio 0.8 L [facility] Medical History (Updated 12/16/20 @ 04:55 by JENNIFER Wilcox) Coarse tremors Congestive heart failure Control of atrial fibrillation with pacemaker Depression GERD (gastroesophageal reflux disease) Gout Hypertension Type 2 diabetes mellitus with diabetic neuropathy Surgical History (Updated 12/16/20 @ 04:55 by JENNIFER Wilcox) History of knee replacement Family History Mother Heart disease Stroke Father Congestive heart failure Renal failure Social History household members: none Smoking Status: Never smoker alcohol intake: current Assessment & Plan Assessment & Plan narrative: Mr. Cummings is a 75M who presented with septic shock secondary to right foot cellulitis and ulcer of right 2nd toe. 1. Septic shock secondary to right foot cellulitis associated with ulcer of 2nd toe -presented with refractory hypotension requiring pressor support, BLAINE, lactate 3.6 and sofa score of 5 -was volume resuscitated and levophed stopped morning of 12/17 -continue vancomycin and meropenem for broad-spectrum coverage -blood and wound cultures pending -CT shows no evidence of osteomyelitis 2. Acute kidney injury, on chronic kidney disease -creatinine 3.11 on admit, last known creatinine 1.75 on 09/11/2020 -improved to 1.39 on 12/17 -continue management of sepsis as above -repeat labs in a.m. 3. Type 2 [place] demand related ischemia -patient with significant troponin elevation consistent with demand ischemia -continue supporting blood pressure and management of sepsis -obtain echo which is still pending 4. Atrial fibrillation, controlled with pacemaker, chronic -patient is in ventricular paced rhythm, he was taken off Eliquis by his general ophthalmologist due to frequent falls and risk of bleed -metoprolol on hold due to low blood pressure 5. Congestive heart failure unknown type, without exacerbation -per med list, patient takes bumetanide 2 mg ?as needed?, isosorbide 30 mg q.d. to b.i.d., lisinopril 20 mg q.d. to b.i.d., metoprolol succinate 100 mg q.d. and pravastatin, not sure why his medications are ordered this way -meds with potential of BP lowering on hold due to sepsis related hypotension -monitor for volume overload with IV fluid resuscitation -there are no records of prior echo on [facility] or PACs -obtain cardiology records 6. History of type 2 diabetes with neuropathy, controlled -A1c 4.7, he does not appear to be on any diabetes medications at home 7. Hypomagnesemia -magnesium 1.5, received 2 g magnesium sulfate -repeat lab in a.m. 8. Alcohol abuse with concern for withdrawal seizure -started on CIWA protocol -got IV ativan in setting of possible seizure -when evaluated at bedside patient was tremulous, but awake and orietned -if worsening symptoms start librium -amount of etoh use unclear, as patient appears to be minimizing drinking IVF: none DVT prophylaxis: Lovenox Code status: Full code, proxy is daughter teresa
[2020-12-17] MEDS: LORazepam 2 MG/ML INJ IV ×3 (18:59→23:33)
[2020-12-17] MEDS: VANCOMYCIN 750 MG/150 ML PIGGYBACK 200 MG IV (18:59)
[2020-12-17] MEDS: LACTATED RINGERS 1,000 ML 50 ML IV (18:59)
[2020-12-17] MEDS: PRAVASTATIN 20 MG TABLET PO (21:11)
[2020-12-17] MEDS: SENNOSIDES 8.6 MG TABLET 17.2 MG PO (21:11)
--- NOTE | 2020-12-17 23:42 | PC.NURSE ---
Addendum entered by Coco Tanner R.N. 12/18/20 05:38: 0530- Patient Ciwaa now 4. Resting comfortably. Moderate tremors noted when arms extended. Patient is sleepy but awakes easily. Incontinent of bowel and bladder, brief on and az care completed. VSS. Will monitor. Addendum entered by Coco Tanner R.N. 12/18/20 01:00: 0100- Patient yelling out in the room. Patient is tremulous, and restless. Disoriented to place and time. Patient is unable to converse coherently. Medicated per protocol for Ciwaa of 12. Will monitor. Original Note: 2330- Patient is restless and states his toe is hurting. Patient is not oriented to person, place or time. Patient is very tremulous and does state that he feels anxious. Patient is not sweaty, but is having some hallucination auditory and visual. Patient is unable to converse coherently. Ciwaa score is 13. Medicated per protocol. Will monitor.
[2020-12-18] VITALS (11 sets, daily range): BP systolic 102–122; BP diastolic 57–76; PULSE 60–70; RESP 14–25; TEMP 36.1–36.4; O2SAT 94–99
[2020-12-18] MEDS: LORazepam 2 MG/ML INJ IV ×6 (00:54→20:42)
[2020-12-18 05:08] LABS: Add Manual Diff / Slide Review SLIDE REVIEW; Basophils Absolute Auto 0 /uL (0-100); Basophils Percent Auto 0.8 % (0-2); Eosinophils Absolute Auto 400 /uL (0-450); Eosinophils Percent Auto 6.4 % (2-4); Hematocrit 26.9 % (41-53); Hemoglobin 9.2 g/dL (13.5-17.5); Lymphocytes Absolute Auto 1500 /uL (1100-4500); Lymphocytes Percent Auto 23.7 % (25-40); Mean Corpuscular HGB Conc 34.3 % (30-36); Mean Corpuscular Hemoglobin 39.2 PG (26-34); Mean Corpuscular Volume 114.2 fL (80-100); Monocytes Absolute Auto 500 /uL (0-900); Monocytes Percent Auto 8.1 % (3-14); Neutrophils Absolute Auto 3900 /uL (1500-7000); Platelet Count 157 X10^3/uL (150-400); Red Blood Cell Count 2.35 X10^6/uL (4.5-5.9); White Blood Cell Count 6.3 X10^3/uL (4.5-11.0)
[2020-12-18 05:14] LABS: Alanine Aminotransferase 9 IU/L (<50); Albumin 2.2 g/dL (3.5-5.0); Albumin Globulin Ratio 0.8 (1.0-2.8); Alkaline Phosphatase 103 U/L (38-126); Aspartate Aminotransferase 19 IU/L (17-59); BUN Creatinine Ratio 29.8 (6-22); Bilirubin Total 0.1 mg/dL (0.2-1.3); Blood Urea Nitrogen 37 mg/dL (9-20); Calcium 8.8 mg/dL (8.4-10.2); Carbon Dioxide 25 mmol/L (22-32); Chloride 106 mmol/L (98-107); Globulin 2.7 g/dL (1.7-4.1); Glucose 86 mg/dL (80-110); HEMOLYSIS < 15 (0-50); Magnesium 1.7 mg/dL (1.6-2.3); Potassium 3.9 mmol/L (3.4-5.1); Sodium 135 mmol/L (137-145); Total Protein 4.9 g/dL (6.3-8.2)
[2020-12-18] MEDS: VANCOMYCIN 750 MG/150 ML PIGGYBACK 200 MG IV (05:45)
[2020-12-18 07:06] LABS: Macrocytosis 3+; Platelet Estimate Adequate on smear
[2020-12-18] MEDS: MULTIVITAMIN 1 TABLET 1 TAB PO (09:19)
[2020-12-18] MEDS: THIAMINE 100 MG TABLET PO (09:19)
[2020-12-18] MEDS: ENOXAPARIN 40 MG/0.4 ML SYRINGE SUBCUT (09:19)
[2020-12-18] MEDS: DOCUSATE 100 MG CAPSULE PO (09:19)
[2020-12-18] MEDS: MEROPENEM 1 GM in SODIUM CHLORIDE 0.9% 100 ML 200 ML IV (09:20)
[2020-12-18] MEDS: SODIUM CHLORIDE 0.9% FLUSH 10 ML IV ×2 (09:22→21:23)
[2020-12-18] MEDS: FOLIC ACID 1 MG TABLET PO (09:24)
[2020-12-18] MEDS: PANTOPRAZOLE DR 20 MG TABLET PO (09:24)
--- NOTE | 2020-12-18 09:24 | CM.DPC ---
DCP Cont: Checked on patient, he is currently sleeping, he is currently on CIWA, he has history of alcohol use. Nurse, Perri, mentioned that patient has not been out of bed. Patient may need skilled. Daughter is expected to come in later today, but went ahead and called [facility], and gave information to Marcy who is week-end admissions. Let her know that if patient does need skilled, he would go under Medicare A, since he is also [facility]. Reg has not yet worked with P.T, so this will be determined. It is also unclear if patient will need prolonged IV antibiotics at discharge for his cellulitis. P: DCP to continue to follow, and will be available for resources needed. Sending referral to [facility]. Other option is home health. Once patient is more medically stable, may need to see how he does with P.T. Lori West RN/Braid Cutter
--- NOTE | 2020-12-18 11:25 | PC.NURSE ---
PT WITH CIWA SCORE OF 7- NO RX GIVEN AT THIS TIME. PT ABLE TO TAKE ENSURE AND FEW BITES FOR BREAKFAST - HE SWALLOWED PILLS WHOLE WITHOUT DIFFICULTY, UPPER BILAT EXTREMITIES TREMULOUS - INCONT OF UEINE AND DID MAKE IT TO [facility] FOR SMALL BM WITH ASSIST OF 2 STAFF. PT UP TO CHAIR
[2020-12-18] MEDS: CEFAZOLIN 1 GM VIAL 2 GM IV ×2 (14:44→21:24)
[2020-12-18] MEDS: LACTATED RINGERS 1,000 ML 50 ML IV (17:18)
--- NOTE | 2020-12-18 17:29 | P.PN_ITS ---
Subjective Subjective Date Patient Seen: 12/18/20 Time Patient Seen: 08:29 Interval history: Today he was more altered from his baseline. Yesterday he had been feeling well until he had concern for possible EtOH withdrawal seizure. Today he says his foot is hurting. He is more confused. Exam Vital Signs (past 8 hours): - 12/18/20 12:00 12/18/20 15:04 12/18/20 16:06 Temperature 97.3 F L Pulse Rate 61 64 63 Respiratory Rate 20 25 H 20 Blood Pressure 109/57 L 115/57 L 116/60 Pulse Oximetry 99 12/18/20 16:22 Temperature 97.1 F L Pulse Rate 62 Respiratory Rate 14 Blood Pressure 116/60 Pulse Oximetry 95 Oxygen Delivery Method Room Air Oxygen Flow Rate 0 Narrative Exam Narrative: General: no acute distress HEENT: moist mucous membranes, no JVD Lungs: clear bilaterally, no wheezes, rhonchi, rales Heart: Regular rhythm with no murmurs Abdomen: Soft, nontender, nondistended, no organomegaly, normal bowel sounds Extremities: No edema, there is a moist ulcer on top of the right 2nd toe with erythema of the toe extending proximally to the mid foot Objective Labs Result Diagrams: 12/18/20 05:01 12/18/20 05:01 Labs: Laboratory Results - last 24 hr 12/18/20 12/18/20 05:01 05:01 WBC 6.3 RBC 2.35 L Hgb 9.2 L Hct 26.9 L MCV 114.2 H MCH 39.2 H MCHC 34.3 RDW 17.0 H Plt Count 157 Neut % (Auto) 61.0 Lymph % (Auto) 23.7 L Childress % (Auto) 8.1 Eos % (Auto) 6.4 H Baso % (Auto) 0.8 Neut # (Auto) 3900 Lymph # (Auto) 1500 Childress # (Auto) 500 Eos # (Auto) 400 Baso # (Auto) 0 Platelet Estimate Adequate on smear RBC Morphology See below Macrocytosis 3+ H Sodium 135 L Potassium 3.9 Chloride 106 Carbon Dioxide 25 BUN 37 H Creatinine 1.24 Estimated GFR 57.0 L BUN/Creatinine Ratio 29.8 H Glucose 86 Calcium 8.8 Magnesium 1.7 Total Bilirubin 0.1 L AST 19 ALT 9 Alkaline Phosphatase 103 Total Protein 4.9 L Albumin 2.2 L Globulin 2.7 Albumin/Globulin Ratio 0.8 L [facility] Medical History (Updated 12/16/20 @ 04:55 by JENNIFER Wilcox) Coarse tremors Congestive heart failure Control of atrial fibrillation with pacemaker Depression GERD (gastroesophageal reflux disease) Gout Hypertension Type 2 diabetes mellitus with diabetic neuropathy Surgical History (Updated 12/16/20 @ 04:55 by JENNIFER Wilcox) History of knee replacement Family History Mother Heart disease Stroke Father Congestive heart failure Renal failure Social History household members: none Smoking Status: Never smoker alcohol intake: current Assessment & Plan Assessment & Plan narrative: Mr. Cummings is a 75M who presented with septic shock secondary to right foot cellulitis and ulcer of right 2nd toe. 1. Septic shock secondary to right foot cellulitis associated with ulcer of 2nd toe -presented with refractory hypotension requiring pressor support, BLAINE, lactate 3.6 and sofa score of 5 -was volume resuscitated and levophed stopped morning of 12/17 -initially vancomycin and meropenem for broad-spectrum coverage -wound cultures show MSSA -switched to cefazolin on 12/18 and plan for two weeks antibiotics -CT shows no evidence of osteomyelitis 2. Acute kidney injury, on chronic kidney disease -creatinine 3.11 on admit, last known creatinine 1.75 on 09/11/2020 -improved to 1.24 on 12/18 -continue management of sepsis as above -repeat labs in a.m. 3. Type 2 [place] demand related ischemia -patient with significant troponin elevation consistent with demand ischemia -continue supporting blood pressure and management of sepsis -obtain echo which is still pending 4. 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 Congestive heart failure unknown type, without exacerbation -per med list, patient takes bumetanide 2 mg ?as needed?, isosorbide 30 mg q.d. to b.i.d., lisinopril 20 mg q.d. to b.i.d., metoprolol succinate 100 mg q.d. and pravastatin, not sure why his medications are ordered this way -meds with potential of BP lowering on hold due to sepsis related hypotension -monitor for volume overload with IV fluid resuscitation -there are no records of prior echo on [employer] or PACs -obtain cardiology records 6. History of type 2 diabetes with neuropathy, controlled -A1c 4.7, he does not appear to be on any diabetes medications at home 7. Hypomagnesemia -magnesium 1.5, received 2 g magnesium sulfate, improved to 1.7 -repeat lab in a.m. 8. Alcohol abuse with concern for withdrawal seizure, with acute metabolic encephalopathy -started on CIWA protocol -got IV ativan in setting of possible seizure -when evaluated at bedside patient was tremulous, but awake and orietned -if worsening symptoms start librium -amount of etoh use unclear, as patient appears to be minimizing drinking -oredered for folate, mvi, thiamine IVF: none DVT prophylaxis: Lovenox Code status: Full code, proxy is daughter teresa
[2020-12-18] MEDS: PRAVASTATIN 20 MG TABLET PO (21:23)
[2020-12-18] MEDS: chlordiazePOXIDE 25 MG CAPSULE PO (21:23)
[2020-12-19 04:42] VITALS: BP 115/66; PULSE 69; RESP 18; TEMP 36.6; O2SAT 92
[2020-12-19 04:42] LABS: Hematocrit 26.2 % (41-53); Hemoglobin 8.9 g/dL (13.5-17.5); Mean Corpuscular HGB Conc 33.9 % (30-36); Mean Corpuscular Hemoglobin 38.8 PG (26-34); Mean Corpuscular Volume 114.3 fL (80-100); Platelet Count 167 X10^3/uL (150-400); Red Blood Cell Count 2.29 X10^6/uL (4.5-5.9); Red Cell Distribution Width 16.5 % (11.6-14.8); White Blood Cell Count 5.8 X10^3/uL (4.5-11.0)
[2020-12-19 04:46] LABS: BUN Creatinine Ratio 34.3 (6-22); Blood Urea Nitrogen 34 mg/dL (9-20); Calcium 9.2 mg/dL (8.4-10.2); Carbon Dioxide 25 mmol/L (22-32); Chloride 106 mmol/L (98-107); Estimated Glomerular Filt Rate > 60.0 mL/min (>60); Glucose 77 mg/dL (80-110); HEMOLYSIS < 15 (0-50); Magnesium 1.7 mg/dL (1.6-2.3); Potassium 3.8 mmol/L (3.4-5.1); Sodium 135 mmol/L (137-145)
[2020-12-19] MEDS: CEFAZOLIN 1 GM VIAL 2 GM IV ×3 (05:44→21:05)
--- NOTE | 2020-12-19 06:08 | PC.NURSE ---
0600- Patient remains oriented to self only. Patient in no distress. Ciwaa 1 no ativan given on slot shift supervisor. Patient able to follow simple direction but remains confused to time and place. Lungs have bibasilar crackles, LR TKO while antibiotic infuses then will heplock. VSS. Will monitor.
[2020-12-19 08:33] VITALS: BP 138/79; PULSE 60; RESP 14; TEMP 36.1; O2SAT 98
[2020-12-19] MEDS: ENOXAPARIN 40 MG/0.4 ML SYRINGE SUBCUT (08:58)
[2020-12-19] MEDS: FOLIC ACID 1 MG TABLET PO (08:59)
[2020-12-19] MEDS: MULTIVITAMIN 1 TABLET 1 TAB PO (08:59)
[2020-12-19] MEDS: THIAMINE 100 MG TABLET PO (08:59)
[2020-12-19] MEDS: LEVOTHYROXINE 75 MCG TABLET PO (09:02)
[2020-12-19] MEDS: PANTOPRAZOLE DR 20 MG TABLET PO (09:02)
[2020-12-19] MEDS: SODIUM CHLORIDE 0.9% FLUSH 10 ML IV ×2 (09:07→21:05)
--- NOTE | 2020-12-19 10:01 | PT.IIE ---
Current Diagnoses Sepsis, unspecified organism (12/15/20) Surgical History (Last Updated 12/16/20 @ 04:55 by JENNIFER Wilcox) History of knee replacement Medical History (Last Updated 12/16/20 @ 04:55 by JENNIFER Wilcox) Coarse tremors Congestive heart failure Control of atrial fibrillation with pacemaker Depression GERD (gastroesophageal reflux disease) Gout Hypertension Type 2 diabetes mellitus with diabetic neuropathy Physical Therapy Inpatient Evaluation/Re-Eval M1 PT/OT-IP Prior Functional Status Start: 12/19/20 08:20 Freq: NEEDED Status: Active Protocol: Document 12/19/20 10:01 AW (Rec: 12/19/20 12:07 AW [id number]) Medical Review Prior Functional Status Medical History Reviewed Yes Communication Pt is soft spoken with poor phonation. He is able to make his needs known. Mobility and Gait Pt's mobility has declined significantly over the past several months. He was able to walk with a cane but now walks only short distances with 4WW. Pt's daughter has purchased a wheelchair for home use but pt has not used it yet. Activities of Daily Living and IADL's Pt has been able to manage ADL 's mod independent at home. His daughter and son in law provide assist with finances, cleaning, laundry. They check on and spend time with him daily. Pt also has two sisters who have been coming over a few times per week to assist with meal prep. Prior Functional Level (Other details) Pt on CIWA protocol for EtOH withdrawal. Per daughter, pt is consumes alcohol heavily on a daily basis. Social History Household Members none Living Arrangements House Number of Floors (Floors) Two Floors Number of Stairs To Enter/Railing? 1 step from garage to laundry room and one step into the kitchen. Main bedroom is upstairs but pt has been staying in the main floor guest room and no longer goes upstairs. Home Environment Standard Height Toilet,Walk in Shower,Built-In Shower Seat Home Equipment Four Wheel Walker,Manual Wheelchair,Bedside Commode, Hand Held Shower,Grab Bars Near Toilet Additional Social History Comment Pt has a safety frame around his toilet. His daughter and son in law live nearby with their teenaged daughters. They spend time with the pt daily. M2 PT-IP Current Condition Start: 12/19/20 08:20 Freq: NEEDED Status: Active Protocol: Document 12/19/20 10:01 AW (Rec: 12/19/20 12:01 AW [id number]) Physical Therapy Current Condition Current Condition Evaluation Date 12/19/20 Treatment Diagnosis R foot cellulitis, sepsis; difficulty in walking Onset Date 12/16/20 Precautions Other Precautions seizure precautions; falls M3 PT-IP Subjective Start: 12/19/20 08:20 Freq: NEEDED Status: Active Protocol: Document 12/19/20 10:01 AW (Rec: 12/19/20 10:50 AW [id number]) Subjective Physical Therapy Visit Type Type Initial Evaluation Visit Start Time 09:23 Visit Stop Time 10:01 Total Visit Minutes 38 Physical Therapy Visit Comments Patient Comments Pt is willing to participate with PT Patient Goals Per CM notes, pt hopes to stay in his home as long as possible. During this visit, pt is unable to respond to queries about goals. Therapy Pain Assessment Pain When Pain Assessed At Rest Pain Present Pain Present Pain Reported FLACC Pain Scale Face Occasional grimace/frown Legs Normal position; relaxed Activity Quiet, moves easily Cry No cry (awake or asleep) Consolability Reassurable with touch FLACC Total 2 M4 PT-IP Mobility and Gait Start: 12/19/20 08:20 Freq: NEEDED Status: Active Protocol: Document 12/19/20 10:01 AW (Rec: 12/19/20 10:50 AW [id number]) PT-Bed Mobility Assessment Rolling Type of Rolling Roll to Right Level of Assist Maximal Assistance,1 Person Assistance Supine to Sit Supine to Sit Maximum Assistance,1 Person Assistance,Bedrails Scooting Scooting to Edge of Bed Maximum Assistance PT-Transfer Assessment Sit to and From Stand Sit to and from Stand Maximum Assistance,1 Person Assistance,2 Person Assistance ,Use of Upper Extremities Equipment Transfer Assistive Device Gait Belt,Front Wheeled Walker Orthotic/Prosthetic Devices or Brace: No Transfers Transfer Destination Chair Transfer Technique Stand Step Pivot Transfer Ability Level of Assist Maximum Assistance,2 Person Assistance Comments Mobility Comments Pt was sitting up in bed as PT arrived. He was soft spoken and oriented to self only but indicated interest in sitting up on the chair. BP was 131/63 HR 70. He initially attempted to pull up to long sitting but was unable. He then attempted to roll to his right side, requiring max assist to roll and to transition SL to sit. In sitting, he required constant assist to counteract posterior lean. PT provided max assist to scoot toward EOB . With feet flat on the floor, sitting balance improved but still required min to mod assist. He attempted to stand but kept his weight posteriorly and was unable to shift forward in response to cues. Instructed pt to sit on the bed. CRIMINAL JUSTICE DEPARTMENT CHAIR arrived to assist with mobility. Pt stood from the bed max A x 2 and step pivot transferred to the bedside chair with max A x 2 for walker management and weight shifting assist. Pt shuffled and dragged both feet , requiring direction and assist to complete the transfer. In sitting, pt was dependent for respositioning. He was reclined in the chair and left with CRIMINAL JUSTICE DEPARTMENT CHAIR attending. HR ranged 61-78 during treatment. Gait Assessment Gait Distance (Feet) 2 Assistive Devices Assistive Device Gait Belt,Front Wheeled Walker Orthotic/Prosthetic Devices or Brace: No Gait Deviations General Gait Pattern Antalgic,Decreased Stride Length,Decreased Feet Clearance,Flexed Trunk,Lateral Trunk Lean Factors Limiting Gait Function Factors Limiting Gait Function Decreased Activity Tolerance, Decreased Strength,Difficulty Following Directions,Pain,Poor Balance,Poor Safety Awareness Comments Gait Comments Pt able to take shuffling steps with poor weight shifting during transfer as described in mobility comments . Pt leaned posteriorly and to the left in weightbearing. PT-Balance Assessment Sitting Balance and Reactions Static Sitting Balance Ability Poor Dynamic Sitting Balance Ability Poor Standing Balance and Reactions Static Standing Balance Ability Poor Dynamic Standing Balance Ability Poor Device Used FWW Balance Tests Single Limb Standing unable M5 PT-IP Objective Assessments Start: 12/19/20 08:20 Freq: NEEDED Status: Active Protocol: Document 12/19/20 10:01 AW (Rec: 12/19/20 12:01 AW [id number]) Orientation Orientation/Cognition Level of Alertness Confusional State Orientation Name Safety Awareness Decreased Safety Awareness Memory Description Short Term Impaired,Acupuncturist Impaired Comments Pt was an unreliable historian and had poor phonation during interview. He was able to follow single step commands > 50% of the time. Gross Range of Motion Lower Extremity ROM Assessment Within Functional Limits Strength Lower Extremity Strength Assessment Bilaterally Impaired Hip 3-/5 Knee 3/5 Sensation Assessment Comments Sensation Comments Unable to assess due to cognition. Per EMR, pt has peripheral neuropathy secondary to DM2. Muscle Tone Muscle Tone WNL No Comments Muscle Tone Comments Essential tremors noted BUE. M6 PT-IP Treatment Start: 12/19/20 08:20 Freq: NEEDED Status: Active Protocol: Document 12/19/20 10:01 AW (Rec: 12/19/20 12:01 AW [id number]) Physical Therapy Treatment Education Education Provided Safety M7 PT-IP Assessment and Plan Start: 12/19/20 08:20 Freq: NEEDED Status: Active Protocol: Document 12/19/20 10:01 AW (Rec: 12/19/20 12:01 AW [id number]) PT Summary Assessment and Plan Potential Rehabilitation Potential Fair Status of Condition at Evaluation Evolving Summary Impairments Pain,Strength,Balance, Sensation,Tone,Cognition,Bed Mobility,Transfers,Gait, Activity Tolerance Assessment Summary Jesus is a 75 yo man admitted with sepsis secondary to right foot cellulitis. He lives alone but his daughter and son in law live in town and check on the pt daily. Per his daughter, his mobility has steadily declined over the past several months. He was able to walk with a cane several months ago but now can walk only ~25 feet with 4WW before needing to sit due to bilateral leg pain. He has been falling with increasing frequency. On evaluation, pt required max assist of 1-2 people for bed mobility and transfers. He was unable to clear his feet enough to safely ambulate with FWW. Pt will require SNF rehab to improve strength and mobility independence. Goals Bed Mobility Goal Contact Guard Assistance Transfer Goal Minimal Assistance,Front Wheeled Walker Gait Goal Minimal Assistance,Front Wheel Walker Gait Distance 25 Other Goals - up/down platform step with FWW or LRAD CGA (if going home ) Days to Meet Goals 10 Frequency of Treatment Frequency Of Treatment Once a Day Treatment Plan Physical Therapy Treatment Plan Bed Mobility Training,Transfer Training,Gait Training, Therapeutic Exercise,Balance Retraining,Discharge Planning, Hot or Cold Pack,Neuromuscular Re-ed,Coordination Retraining ,Manual Therapy Other Recommendations and Next Treatment mobility as tolerated, ther ex Focus if able to follow instructions Precautions Other Precautions seizure precautions, falls Recommendations To Nursing Amount of Assist Needed 2 Person Assist Discharge Recommendations PT Discharge Recommendations SNF Rehab Transportation Needs at Discharge Wheelchair/Cabulance
[2020-12-19 11:24] VITALS: BP 119/59; PULSE 60; RESP 14; TEMP 36.7; O2SAT 98
--- NOTE | 2020-12-19 12:00 | PM.PN.1 ---
Subjective Subjective Date Patient Seen: 12/19/20 Time Patient Seen: 08:00 Interval history: Yesterday he had been doing well, he had not been scoring on CIWA protocol. Overnight he was given multiple doses of ativan for high CIWA score, and ordered for librium. This morning he is lethargic. Exam Vital Signs (past 8 hours): - 12/19/20 04:42 12/19/20 08:33 Temperature 97.8 F 96.9 F L Pulse Rate 69 60 Respiratory Rate 18 14 Blood Pressure 115/66 138/79 Pulse Oximetry 92 98 Oxygen Delivery Method Room Air Oxygen Flow Rate 0 Narrative Exam Narrative: General: no acute distress, lethargic HEENT: moist mucous membranes, no JVD Lungs: clear bilaterally, no wheezes, rhonchi, rales Heart: Regular rhythm with no murmurs Abdomen: Soft, nontender, nondistended, no organomegaly, normal bowel sounds Extremities: No edema, there is a moist ulcer on top of the right 2nd toe with erythema of the toe extending proximally to the mid foot Neuro: bilateral tremulousness Objective Labs Result Diagrams: 12/19/20 04:00 12/19/20 04:00 Labs: Laboratory Results - last 24 hr 12/19/20 12/19/20 12/19/20 04:00 04:00 04:00 WBC 5.8 RBC 2.29 L Hgb 8.9 L Hct 26.2 L MCV 114.3 H MCH 38.8 H MCHC 33.9 RDW 16.5 H Plt Count 167 Sodium 135 L Potassium 3.8 Chloride 106 Carbon Dioxide 25 BUN 34 H Creatinine 0.99 Estimated GFR > 60.0 BUN/Creatinine Ratio 34.3 H Glucose 77 L Calcium 9.2 Magnesium 1.7 PFSH Medical History (Updated 12/16/20 @ 04:55 by JENNIFER Wilcox) Coarse tremors Congestive heart failure Control of atrial fibrillation with pacemaker Depression GERD (gastroesophageal reflux disease) Gout Hypertension Type 2 diabetes mellitus with diabetic neuropathy Surgical History (Updated 12/16/20 @ 04:55 by JENNIFER Wilcox) History of knee replacement Family History Mother Heart disease Stroke Father Congestive heart failure Renal failure Social History household members: none Smoking Status: Never smoker alcohol intake: current Assessment & Plan Assessment & Plan narrative: Mr. Cummings is a 75M who presented with septic shock secondary to right foot cellulitis and ulcer of right 2nd toe. 1. Septic shock secondary to right foot cellulitis associated with ulcer of 2nd toe, resolved -presented with refractory hypotension requiring pressor support, BLAINE, lactate 3.6 and sofa score of 5 -was volume resuscitated and levophed stopped morning of 12/17 -initially vancomycin and meropenem for broad-spectrum coverage -wound cultures show MSSA -switched to cefazolin on, 12/18 and plan for two weeks antibiotics, through 12/29 -CT shows no evidence of osteomyelitis 2. Acute kidney injury, on chronic kidney disease, resolved -creatinine 3.11 on admit, last known creatinine 1.75 on 09/11/2020 -improved to 0.99 on 12/18 -continue management of sepsis as above -repeat labs in a.m. 3. Type 2 [place] demand related ischemia -patient with significant troponin elevation consistent with demand ischemia -continue supporting blood pressure and management of sepsis -obtain echo which showed MR, AR, dilated LA and RA, normal EF 4. Atrial fibrillation, controlled with pacemaker, chronic -patient is in ventricular paced rhythm, he was taken off Eliquis by his stem roller operator due to frequent falls and risk of bleed -metoprolol on hold due to low blood pressure 5. Congestive heart failure with preserved ejection fraction -per med list, patient takes bumetanide 2 mg ?as needed?, isosorbide 30 mg q.d. to b.i.d., lisinopril 20 mg q.d. to b.i.d., metoprolol succinate 100 mg q.d. and pravastatin, not sure why his medications are ordered this way -meds with potential of BP lowering on hold due to sepsis related hypotension -monitor for volume overload with IV fluid resuscitation -[facility] 6. History of type 2 diabetes with neuropathy, controlled -A1c 4.7, he does not appear to be on any diabetes medications at home 7. Hypomagnesemia -magnesium 1.5, received 2 g magnesium sulfate, improved to 1.7 -repeat lab in a.m. 8. Alcohol abuse with concern for withdrawal seizure, with acute metabolic encephalopathy -started on CIWA protocol -got IV ativan in setting of possible seizure -when evaluated at bedside patient was tremulous, but awake and oriented -started librium overnight 12/18 -amount of etoh use unclear, as patient appears to be minimizing drinking -oredered for folate, mvi, thiamine -encephalopathy is likely partially related to benzo side effect and not just etoh withdrawal -will order librium 25mg BID, and po ativan prn for ciwa protocol, but avoid iv benzos if possible IVF: none DVT prophylaxis: Lovenox Code status: Full code, proxy is daughter teresa
--- NOTE | 2020-12-19 13:29 | CM.DPC ---
DCP SNF Planning: Per MD, pt making some progress on his CIWA scores for ETOH withdrawal but did receive Ativan overnight. Pt also will have 2 weeks of IV-Abx Cefazolin (started a couple days ago). Per PT, pt still seems somewhat confused with his withdrawal symptoms but was able to contact pt's DPOA/Dtr Sabina and confirm his baseline situation at home and pt currently 2PA and recommending SNF. SW called pt's Dtr/DPOA Sabina (home: [phone], cell [phone]) and she was on speaker phone with her Rolando (cell [phone]) and both are RNs who work more administrative positions and SW explained role and discussed above information. Sabina and Rolando confirm that they have set up pt's house as safe as possible with grab bars, raised toilet seats, [employer] (although pt refuses to use) and they visit pt daily along with pt's 2 adult local sisters who have recently re-entered pt's life after being estranged and check on pt regularly and bring him food and socialize with him. Sabina has been attempting to work with pt's PCP at the [facility] and feels frustrated with their system and working to set up pt with PCP in [place] with [facility] if they accept his [facility] or if they could go through his [facility]. Sabina confirms that she feels SNF is needed but that his primary need is ETOH tx. MEGAN discussed that pt would need to be independent with ADL's (which he currently is not) and likely voluntary (which pt currently is not) or deemed he meets Velasquez's Law criteria for involuntary ETOH tx but that would be after SNF. Pt drinks Vodka daily as his drink of choice and this has significantly contributed to his GLF and lack of ambulation and motivation. Preference is [facility] and they have a continued plan of family to assist and working with [facility] for additional in-home supports and aware that [facility] may need to contact them to confirm pt's d/c plan from SNF. MEGAN called [facility] with referral and provided DPOA/Dtr contact info and pt would need to be off Ativan and awake/alert for 48 hours prior to accepting. Unclear if pt has gotten his COVID vaccinations as no record in the computer and SW to attempt to contact Dtr to confirm. SW made additional SNF referral to [facility] as no answer at [facility] but msg left and have not had contact with admissions at [facility] in a couple months so feels unreliable to fax referral until they return phone call. PASRR completed. Plan: SW to follow closely for 1) [facility] 2) [facility] review towards determining if they can accept at d/c prior to return home with multiple family member assist and possible ETOH tx. Yuko Castillo MSW
[2020-12-19 15:20] VITALS: BP 108/76; PULSE 67; RESP 14; TEMP 36.2; O2SAT 100
[2020-12-19 19:00] VITALS: BP 104/53; PULSE 76; RESP 14; TEMP 36.6; O2SAT 93
[2020-12-19 20:44] LABS: Ammonia (NH3) < 9 umol/L (9-30)
[2020-12-19] MEDS: PRAVASTATIN 20 MG TABLET PO (21:02)
[2020-12-19] MEDS: SENNOSIDES 8.6 MG TABLET 17.2 MG PO (21:04)
[2020-12-19] MEDS: chlordiazePOXIDE 25 MG CAPSULE PO (21:05)
[2020-12-19] MEDS: DOCUSATE 100 MG CAPSULE PO (21:05)
[2020-12-20 01:02] VITALS: BP 106/57; PULSE 60; RESP 20; TEMP 36.7; O2SAT 99
[2020-12-20] MEDS: SODIUM CHLORIDE 0.9% FLUSH 10 ML IV ×2 (05:12→08:26)
[2020-12-20] MEDS: CEFAZOLIN 1 GM VIAL 2 GM IV ×2 (05:12→13:58)
[2020-12-20 05:49] VITALS: BP 125/60; PULSE 67; RESP 22; TEMP 36.2; O2SAT 99
[2020-12-20 06:15] LABS: Hematocrit 31.1 % (41-53); Hemoglobin 10.7 g/dL (13.5-17.5); Mean Corpuscular HGB Conc 34.4 % (30-36); Mean Corpuscular Hemoglobin 39.2 PG (26-34); Mean Corpuscular Volume 113.8 fL (80-100); Platelet Count 212 X10^3/uL (150-400); Red Blood Cell Count 2.73 X10^6/uL (4.5-5.9); Red Cell Distribution Width 16.7 % (11.6-14.8); White Blood Cell Count 7.8 X10^3/uL (4.5-11.0)
[2020-12-20] MEDS: PANTOPRAZOLE DR 20 MG TABLET PO (06:17)
[2020-12-20] MEDS: LEVOTHYROXINE 75 MCG TABLET PO (06:17)
[2020-12-20 06:22] LABS: BUN Creatinine Ratio 29.7 (6-22); Blood Urea Nitrogen 30 mg/dL (9-20); Calcium 9.5 mg/dL (8.4-10.2); Carbon Dioxide 28 mmol/L (22-32); Chloride 106 mmol/L (98-107); Estimated Glomerular Filt Rate > 60.0 mL/min (>60); Glucose 83 mg/dL (80-110); HEMOLYSIS < 15 (0-50); Potassium 3.9 mmol/L (3.4-5.1); Sodium 136 mmol/L (137-145)
[2020-12-20 08:00] VITALS: BP 116/56; PULSE 60; RESP 18; TEMP 36.9; O2SAT 100
[2020-12-20] MEDS: ENOXAPARIN 40 MG/0.4 ML SYRINGE SUBCUT (08:25)
[2020-12-20] MEDS: MULTIVITAMIN 1 TABLET 1 TAB PO (08:25)
[2020-12-20] MEDS: THIAMINE 100 MG TABLET PO (08:25)
[2020-12-20] MEDS: FOLIC ACID 1 MG TABLET PO (08:25)
--- NOTE | 2020-12-20 08:53 | CM.DPC ---
Addendum entered by Stephania Aleman LPN 12/20/20 10:57: IMM #2: TRACEYKatelyn AldridgeSabina is agreeable to the d/c: phone conversation. Addendum entered by Stephania Aleman LPN 12/20/20 10:49: Dr. Juarez stated in Team Rounds that pt was stable for d/c to snf setting today. Confirmed the librium has been d/c'd and last Ativan was 02/17. [facility] has confirmed now that she can accept pt today. COVID/rapid test pending results. PASRR/completed by ALBERTINA Huntley is faxed now to [facility]. The d/c order is placed. The specific snf orders are not yet available. IV antibiotic dose will be given early this afternoon and with trans;ort now planned for 1445 pear picker/w/c van. Spoke with ZANE Muhammad with update and she is agreeable to same. She will speak by phone with [facility] re specifics of the snf covid precautions. Will fax specific snf orders as these are available. Nurse/Nurse report # to CHRISTINE Hernandez Original Note: DCP: continued: case reviewed for last few days and followed up then on a vm left by Daphnie/[facility]. She confirms the facility continues to review and requests nursing notes with focus on CIWA and medications. These are faxed now as well as Dr. Juarez's progress note of 12/19. She says this is the only barrier to acceptance. The IV antibiotic plan can be managed by the facility. She also says she is aware that first snf choice if [facility]Rehab in pt's [facility]. Met now with pt and reintroduced self and role. Pt is found sitting up in bed eating a bit of breakfast. He says he remembers me. Acknowledges that his daily alcohol use has led to his withdrawal symptoms and that he is now beginning to feel much clearer. He confirms he is agreeable to snf rehab at [facility] of [facility]. Rolando/pt's son in law called. He confirms that his /ZANE Muhammad will be in later today. Went over above information. He was unaware of the referral to [facility] but after discussion states understanding of need for a plan B. P: remains snf when stable for same. Pt needs to be off ativan and librium and basically not showing s/s of alcohol withdrawal before either facility will accept him. Updated phone info: Misha's land line: [phone]. Or Rolando's cell: [phone].
--- NOTE | 2020-12-20 09:09 | P.DS_ITS ---
History of Present Illness History of Present Illness Chief complaint: Necrotic Stage 3 on Rt 2nd toe Narrative: Per Angela Price: Patient is a 75-year-old male nonsmoker, with history of HTN, DM, CHF, GERD, AFib and pacemaker with frequent falls presents for low blood pressure, chills, body aches, pain with urination, and a wound on the 2nd toe of his right foot. The wound has been there for about 2-3 weeks and has been evaluated by multiple family members which are nurses. He is currently taking Keflex for the foot that was prescribed by a family friend who is a doctor. He denies any recent new illness, trauma, injury, new shoes or other. He denies any headache, runny nose or sore throat. He denies any chest pain, shortness of breath or cough. He denies any abdominal pain, or constipation. Patient's Primary as at the [facility]. The patient's daughter is at the bedside providing most the history she states that he has been within the last year, has been eating poorly and subsequently has lost over 100 lb within the last year. His daughter is an RN who lives within a mile of father who lives alone she goes by per day to provide care. Patient is stable and in no distress at this time. Patient's vitals upon admit patient was septic shock hypotensive with a BP 73/48, a heart rate of 60 and respirations of 17 but was satting at 100% on room air. Patient was put started on Levophed drip in the ED and was given fluids and antibiotics per sepsis protocol. Patient's white blood cell count was within normal limits, HGB of 12.8 and hematocrit of 38, macrocytosis 3+, patient had mild hyponatremia and BLAINE with a sodium of 132, HC03 19, BUN of 60, elevated creatinine of 3.11. and decreased GFR 19.7. Patient's lactate was slightly elevated at 3.6, his procalcitonin was unremarkable at 0.31, and a troponin of 0.041. Patient had a prominent cellulitis and ulceration of the 2nd toe on the right foot, patient's head CT: showed Volume loss and small vessel ischemic disease, No acute intracranial abnormality. Patient's chest x-ray and toe x-ray showed no acute abnormalities. Patient was admitted for this sepsis/septic shock, BLAINE, and cellulitis toe. Discharge Providers Provider Date of admission: 12/15/20 22:16 Discharge Date: 12/20/20 Primary care physician: Lashon Garay MD Consults: 12/18/20 17:34 Consult to Physical Therapy Evaluate & Treat Comment: Physician Instructions: Evaluate and Treat Discharge provider: Castillo Juarez MD Summary Hospital Course Discharge Diagnosis: 1. Septic shock secondary to right foot cellulitis with ulcer of 2nd toe, CT with no evidence of osteomyelitis 2. Acute kidney injury 3. Elevated troponin related to the above 4. Atrial fibrillation, chronic, s/p pacemaker 5. CHF with preserved ejection fraction 6. Type 2 DM with neuropathy 7. EtOH abuse with possible withdrawal seizure, acute metabolic encephalopathy Hospital Course: Mr. Cummings is 75M with above medical history who initially admitted with evidence of septic shock secondary to right foot cellulitis with ulcer of the 2nd toe. He was initially started on broad spectrum antibiotics, he was given volume resuscitation, and he required levophed until the morning of 6.5. In addition he initially had significant BLAINE with creatinine of 3.11 on admission improved to 1.01 on discharge. He had elevated troponin that peaked at 0.38 in the setting of septic shock, ECHO showed normal EF and no regional wall motion abnormality. He had no chest pain. His wound culture grew MSSA and he was switched to cefazolin. He did have blood cultures drawn that were negative for any infection. Given the severity of his presentation with septic shock it was decided to keep on a prolonged course of antibiotics for a 2 week course through 12/29. He could not undergo MRI to eval for osteomyelitis, but CT scan of the foot showed no evidence of osteomyelitis. He initially denied having significant alcohol use per the admitting physician, but family later clarified he drank significantly and had lost weight since the passing away of his . He had an episode that was witnessed by his daughter that she was concerned for possible seizure, she was per staff an RN. Patient was ordered for IV ativan and placed on CIWA protocol. He initially was scoring quite highly and was ordered librium, he became delirious likely from a combination of withdrawal, benzo intoxication, and owning. On day of discharge he was off CIWA protocol and tapered down on his librium and able to stop. He had a PICC line in and will be discharged to SNF for IV antibiotics and physical therapy. He will need wound care and podiatry follow up. Exam Vital Signs (past 8 hours): Oxygen Delivery Method Room Air Oxygen Flow Rate 0 Narrative Exam Narrative: General: no acute distress, lethargic HEENT: moist mucous membranes, no JVD Lungs: clear bilaterally, no wheezes, rhonchi, rales Heart: Regular rhythm with no murmurs Abdomen: Soft, nontender, nondistended, no organomegaly, normal bowel sounds Extremities: No edema, there is a moist ulcer on top of the right 2nd toe with erythema of the toe extending proximally to the mid foot Neuro: bilateral tremulousness Objective Labs Result Diagrams: 12/20/20 06:00 12/20/20 06:00 [facility] Medical History (Updated 12/16/20 @ 04:55 by JENNIFER Wilcox) Coarse tremors Congestive heart failure Control of atrial fibrillation with pacemaker Depression GERD (gastroesophageal reflux disease) Gout Hypertension Type 2 diabetes mellitus with diabetic neuropathy Surgical History (Updated 12/16/20 @ 04:55 by JENNIFER Wilcox) History of knee replacement Family History Mother Heart disease Stroke Father Congestive heart failure Renal failure Social History household members: none Smoking Status: Never smoker alcohol intake: current Discharge Plan Discharge Plan Patient Disposition: SNF Provider Discharge Comment: Mr. Cummings initially came in with septic shock from c ellulitis from an infected toe. He was found to have been growing MSSA. He had no evidence of osteomyelitis. He should get a total of 14 days of antibiotics with cefazolin through 12/29. He should be referred to see podiatry for his toe ulcer. He has had poor diet since his 's , he has tremors at baseline that interfere with eating. He should keep the wound clean and wrapped with gauze. He did have delirium in the hospital, and it was unclear if he had a seizure, but more likely worsening tremors. Initially his symptoms were thought to be from alcohol withdrawal, so he was started on ciwa protocol, but he was very sensitive to benzodiazepenes which cause confusion and lethargy. These were stopped and he did slowly improve in his mental status. Discharge orders & Medications Prescriptions: New cefazolin 1 gram Recon Soln 2 g IV Q8HR 10 Days Qty: 27 RF: 0 sennosides [senna] 8.6 mg Tablet 17.2 mg PO BEDTIME Qty: 30 RF: 0 thiamine HCl (vitamin B1) [Vitamin B-1] 100 mg Tablet 100 mg PO DAILY Qty: 30 RF: 0 docusate sodium [DOK] 100 mg Capsule 100 mg PO BID Qty: 30 RF: 0 folic acid 1 mg Tablet 1 mg PO DAILY Qty: 30 RF: 0 oxycodone 5 mg Tablet 5 mg PO Q6HR PRN (Reason: Pain, Moderate (4-6)) Qty: 10 RF: 0 multivitamin with folic acid [Tab-A-Rj] 400 mcg Tablet 1 tab PO DAILY Qty: 30 RF: 0 Continued isosorbide (solution) 30 mg PO QD-BID RF: 0 pravastatin 20 mg PO QD-BID RF: 0 Protonix 20 mg PO DAILY PRN (Reason: Acid Reflux) RF: 0 allopurinol 300 mg PO DAILY RF: 0 bumetanide 2 mg PO PRN PRN (Reason: Edema) RF: 0 metoprolol succinate 100 mg PO DAILY RF: 0 levothyroxine 75 mg PO DAILY RF: 0 Pepcid 20 mg PO PRN PRN (Reason: Acid Reflux) RF: 0 Prozac 20 mg PO DAILY RF: 0 Discontinued lisinopril 20 mg PO QD-BID RF: 0 K+ Potassium 20 meq PO BID RF: 0 methocarbamol 500 mg PO BID RF: 0 Follow up/Referrals: Lashon Garay MD [Primary Care Provider] - Diet/Activity/Treatments Diet: Regular Diet comment: add nutritional supplement such as ensure BID [facility] Rehab type: Physical therapy Discharge Data Primary Care Provider: Lashon Garay Quality MIPS - DC The patient has current or prior documentation of left ventricular ejection fraction (LVEF) less than 40%, or moderate or severely depressed left ventricular systolic function.: No
--- NOTE | 2020-12-20 11:10 | PT.IPTN ---
Current Diagnoses Sepsis, unspecified organism (12/15/20) Physical Therapy Treatment Note M2 PT-IP Current Condition Start: 12/19/20 08:20 Freq: NEEDED Status: Active Protocol: Document 12/19/20 10:01 AW (Rec: 12/19/20 12:01 AW [id number]) Physical Therapy Current Condition Current Condition Evaluation Date 12/19/20 Treatment Diagnosis R foot cellulitis, sepsis; difficulty in walking Onset Date 12/16/20 Precautions Other Precautions seizure precautions; falls M3 PT-IP Subjective Start: 12/19/20 08:20 Freq: NEEDED Status: Active Protocol: Document 12/20/20 11:10 AB (Rec: 12/20/20 13:14 AB [email or web address]) Subjective Physical Therapy Visit Type Type Treatment Note Visit Start Time 11:10 Visit Stop Time 11:25 Total Visit Minutes 15 Number of BLACKING WHEEL TENDER Visits 0 Physical Therapy Visit Comments Patient Comments agreeable to do PT M4 PT-IP Mobility and Gait Start: 12/19/20 08:20 Freq: NEEDED Status: Active Protocol: Document 12/20/20 11:10 AB (Rec: 12/20/20 13:14 AB [email or web address]) PT-Bed Mobility Assessment Supine to Sit Supine to Sit Maximum Assistance,1 Person Assistance,Head of Bed Elevated,Bedrails Scooting Scooting to Edge of Bed Maximum Assistance PT-Transfer Assessment Sit to and From Stand Sit to and from Stand Maximum Assistance,1 Person Assistance,Use of Upper Extremities Equipment Transfer Assistive Device Gait Belt,Front Wheeled Walker Orthotic/Prosthetic Devices or Brace: No Transfers Transfer Destination Toilet Transfer Technique Stand Step Pivot Transfer Ability Level of Assist Maximum Assistance,1 Person Assistance,2 Person Assistance ,Use of Upper Extremities Comments Mobility Comments completed supine to sit max A and max cues with HOB elevated and use of bed rail. pt was able to sit on EOB min A and cues. completed sit to stand max A and cues. completed step transfer using FWW max A x 1-2 and max cues. required assist with weight shifting to be able to move LLE forward to transfer. increase lateral trunk lean to the R during standing and required max cues with all tasks. pt positioned on chair. call light and table placed within reach. Gait Assessment Comments Gait Comments able to take steps during transfers with max A x 1-2 and max cues using FWW M5 PT-IP Objective Assessments Start: 12/19/20 08:20 Freq: NEEDED Status: Active Protocol: Document 12/19/20 10:01 AW (Rec: 12/19/20 12:01 AW [id number]) Orientation Orientation/Cognition Level of Alertness Confusional State Orientation Name Safety Awareness Decreased Safety Awareness Memory Description Short Term Impaired,Technical Laboratory Asst Impaired Comments Pt was an unreliable historian and had poor phonation during interview. He was able to follow single step commands > 50% of the time. Gross Range of Motion Lower Extremity ROM Assessment Within Functional Limits Strength Lower Extremity Strength Assessment Bilaterally Impaired Hip 3-/5 Knee 3/5 Sensation Assessment Comments Sensation Comments Unable to assess due to cognition. Per EMR, pt has peripheral neuropathy secondary to DM2. Muscle Tone Muscle Tone WNL No Comments Muscle Tone Comments Essential tremors noted BUE. M6 PT-IP Treatment Start: 12/19/20 08:20 Freq: NEEDED Status: Active Protocol: Document 12/20/20 11:10 AB (Rec: 12/20/20 13:14 AB [email or web address]) Physical Therapy Treatment Education Education Provided Safety M7 PT-IP Assessment and Plan Start: 12/19/20 08:20 Freq: NEEDED Status: Active Protocol: Document 12/20/20 11:10 AB (Rec: 12/20/20 13:14 AB [email or web address]) PT Summary Assessment and Plan Summary Impairments Pain,Strength,Balance, Sensation,Tone,Cognition,Bed Mobility,Transfers,Gait, Activity Tolerance Progress Towards Goals Slow Progress due to Medical Issues,Slow Progress due to Activity Tolerance Assessment Summary pt requiring max A x 1-2 with mobility and max cues with all tasks and will require SNF rehab to improve strength and functional mobility. Goals Bed Mobility Goal Contact Guard Assistance Transfer Goal Minimal Assistance,Front Wheeled Walker Gait Goal Minimal Assistance,Front Wheel Walker Gait Distance 25 Other Goals - up/down platform step with FWW or LRAD CGA (if going home ) Days to Meet Goals 10 Frequency of Treatment Frequency Of Treatment Once a Day Treatment Plan Physical Therapy Treatment Plan Bed Mobility Training,Transfer Training,Gait Training, Therapeutic Exercise,Balance Retraining,Discharge Planning, Hot or Cold Pack,Neuromuscular Re-ed,Coordination Retraining ,Manual Therapy Precautions Other Precautions seizure precautions, falls Recommendations To Nursing Amount of Assist Needed 2 Person Assist Discharge Recommendations PT Discharge Recommendations SNF Rehab Transportation Needs at Discharge Wheelchair/Cabulance
[2020-12-20 11:25] LABS: COVID19 - ADMIT (NP swab/PCR) Negative (Negative)
[2020-12-20 12:00] VITALS: BP 111/52; PULSE 60; RESP 17; TEMP 36.5; O2SAT 98
== END 2020-12-20 14:53 | DRG 871 ==
LOC: ED 21:08 → ICU 12-16 10:50 → AC 12-20 07:51
PROVIDERS: Internal Medicine; Admitting Provider Nurse Practitioner Family; Emergency Provider Emergency Medicine; PCP Internal Medicine; Referring Provider Emergency Medicine; Visit Provider Nurse Practitioner Family
DX: A41.9 Sepsis, unspecified organism (principal); R65.21 Severe sepsis with septic shock; I21.A1 Myocardial infarction type 2; G92 Toxic encephalopathy; E43 Unspecified severe protein-calorie malnutrition; N17.9 Acute kidney failure, unspecified; N12 Tubulo-interstitial nephritis, not specified as acute or chronic; E87.1 Hypo-osmolality and hyponatremia; F10.239 Alcohol dependence with withdrawal, unspecified; L97.519 Non-pressure chronic ulcer of other part of right foot with unspecified severity; E11.40 Type 2 diabetes mellitus with diabetic neuropathy, unspecified; L03.031 Cellulitis of right toe; K21.9 Gastro-esophageal reflux disease without esophagitis; I48.91 Unspecified atrial fibrillation; Z20.822 Contact with and (suspected) exposure to COVID-19; Z91.81 History of falling; Z95.0 Presence of cardiac pacemaker; T42.4X5A Adverse effect of benzodiazepines, initial encounter; Z68.25 Body mass index [BMI] 25.0-25.9, adult
CPT/HCPCS: 36415; 36569; 36592; 70450; 71045; 73660; 73700; 74176; 80048; 80053; 81001; 81003; 82140; 82550; 82805; 83036; 83605; 83735; 83880; 84145; 84484; 85025; 85027; 85610; 87040; 87070; 87075; 87077; 87147; 87186; 87205; 87635; 87797; 93005; 93041; 93306; 96361; 96365; 96366; 96368; 97162; 97530; 99284; C9803; J0690; J1650; J1956; J2060; J2185; J2405; J3475

== ENCOUNTER 2020-12-30 01:57 | Inpatient (IN) | payer OTHER, SELFPAY ==
[2020-12-16 00:19] VITALS: BMI 25.9
[2020-12-30] VITALS (13 sets, daily range): BP systolic 102–128; BP diastolic 51–82; PULSE 60–68; RESP 10–18; TEMP 36.5–37.7; O2SAT 94–99; BMI 25.9
--- NOTE | 2020-12-30 01:57 | DI.RAD.S_ITS ---
PROCEDURE: XR CHEST 1V INDICATIONS: AMS TECHNIQUE: One view of the chest was acquired. COMPARISON: [facility], CT, CT ANGIO HEAD AND NECK, 12/30/2020, 1:55. [facility], CR, XR CHEST FOR PICC 1V, 12/16/2020, 9:47. FINDINGS: Surgical changes and devices: Cardiac pacer. Right-sided PICC line with the tip projecting at the upper SVC. Lungs and pleura: Increased right perihilar opacity. No pneumothorax identified. Pleural effusions on the comparison CT are not well seen radiographically probably layering. There also increased mild left perihilar opacities. Mediastinum: Mediastinal contours appear normal. Heart size is normal. Bones and chest wall: No suspicious bony lesions. Overlying soft tissues appear unremarkable. IMPRESSION: Increased bilateral perihilar opacities suggestive of pulmonary edema although aspiration is in the differential. Recommend clinical and laboratory correlation to exclude underlying infection. Bilateral layering pleural effusions better seen on the comparison CT Findings concordant with preliminary study interpretation. Dictated by: Michael Stringer M.D. on 12/30/2020 at 8:44 Approved by: Michael Stringer M.D. on 12/30/2020 at 8:47
--- NOTE | 2020-12-30 01:57 | DI.CT.S_ITS ---
PROCEDURE: CT STROKE INDICATIONS: unresponsive with unequal pupils TECHNIQUE: Noncontrast 4.5 mm thick angled axial sections acquired from the foramen magnum to the vertex, with coronal reformats. For radiation dose reduction, the following was used: automated exposure control, adjustment of mA and/or kV according to patient size. COMPARISON: None. FINDINGS: Image quality: Excellent. CSF spaces: Basal cisterns are patent. No extra-axial fluid collections. The ventricles are symmetric in size and shape. Brain: No intracranial bleeds or masses. Left cerebellar hypodensity suggestive of infarct. This could be confirmed with MRI as clinically necessary. There is cerebral volume loss for age, with resultant ventricular and sulcal prominence. There are periventricular and deep white matter chronic small vessel ischemic changes. There is intracranial internal carotid artery atherosclerosis. Skull and face: Calvarium and visualized facial bones appear intact, without suspicious lesions. Possible debris seen in both external auditory canal/s which is technically nonspecific and recommend direct visual inspection to exclude soft tissue mass. Sinuses: Complete opacification of the left maxillary sinus. IMPRESSION: Left cerebellar hypodensity, presumed infarct. Findings concordant with preliminary study interpretation. Additional chronic and incidental findings as above. This study fulfills neurological imaging criteria for inclusion or exclusion of acute stroke therapies based on available published neurological guidelines. Dictated by: Michael Stringer M.D. on 12/30/2020 at 8:35 Approved by: Michael Stringer M.D. on 12/30/2020 at 8:41
--- NOTE | 2020-12-30 01:57 | DI.CT.S_ITS ---
PROCEDURE: CT ANGIO HEAD AND NECK INDICATIONS: stroke, unresponsive with unequal pupils TECHNIQUE: After the administration of intravenous contrast, 1 mm thick sections acquired from the aortic arch through the [place] of [place]. Post-contrast 4.5 mm thick sections then re-acquired from the foramen magnum to the vertex. 3-dimensional jswzasq-[id number]-ghjicsskgj (MIP) and/or volume rendering reformats were acquired of the central intracranial vasculature and neck separately. COMPARISON: [facility], CT, CT ABDOMEN PELVIS WO CON, 12/15/2020, 21:59. [facility], CR, XR CHEST 1V, 12/30/2020, 2:22. [facility], CT, CT STROKE, 12/30/2020, 1:55. FINDINGS: Image quality: Excellent. BRAIN: CSF spaces: Ventricles are normal in size and shape. Basal cisterns are patent. No extra-axial fluid collections. Brain: No midline shift. No intracranial bleeds or masses. Henry-white matter interface appears intact. Skull and face: Calvarium and facial bones appear intact, without suspicious lesions. Orbits appear normal. Sinuses: Sinuses show dense chronic appearing opacification with relative atrophy involving the left maxillary sinus. The mastoids are normal. HEAD CT ANGIOGRAPHY: Anterior circulation: Intracranial internal carotid arteries are normal in size and flow. The flow within the paired anterior cerebral arteries is normal and symmetric. The flow within the middle cerebral arteries is normal and symmetric. The anterior communicating artery is seen. No aneurysms are seen. Posterior circulation: Visualized portions of the vertebral arteries demonstrate normal caliber, and join to form a normal appearing basilar artery. Flow within the posterior cerebral arteries is normal and symmetric. No aneurysms are seen. NECK CT ANGIOGRAPHY: Carotid system: The great vessels demonstrate a conventional anatomy as they arise from the aortic arch. The origins of the common carotid arteries appear patent. The common carotid arteries demonstrate normal caliber and courses. The bifurcation regions are both involved with dense atherosclerotic plaquing, slightly greater on the right than the left, and high-grade stenosis appears present at the origin of each proximal internal carotid artery associated with this abnormality. The internal carotid arteries demonstrate normal calibers and courses as the skull base is approached.. Posterior circulation: The origins of the vertebral arteries both appear asymmetric with occlusion of the left vertebral artery from its origin cephalad, containing internal calcifications indicating likelihood of chronic occlusion. The more superior extracranial portions of both vertebral arteries also demonstrate asymmetric calibers, small on the right. The right vertebral artery reperfuses by collateral flow and then extend cephalad to join the left larger vertebral artery to form a normal caliber basilar artery extending into the posterior circulation. They join to form a normal appearing basilar artery. Soft tissues: Visualized neck soft tissues demonstrate no suspicious abnormalities. Bilateral moderate pleural effusions now present, none had been present earlier this month Bones: No suspicious bony lesions. Visualized cervical spine appears normally aligned. IMPRESSION: 1. No definite intracranial arterial abnormality found. 2. High-grade stenosis appears present at the origin of each internal carotid artery where dense atherosclerotic calcific plaquing is present. The degree of stenosis is likely over 70%. The exact degree of stenosis is difficult to establish given diminutive patent lumen through the areas of dense calcification. 3. 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 4. Chronic opacification of the left maxillary sinus, which is small in size. New finding of bilateral moderate pleural effusions potentially cardiogenic in origin. Any quantitative measurements of stenosis were performed using NASCET criteria. Dictated by: Laz Goodrich M.D. on 12/30/2020 at 9:19 Approved by: Laz Goodrich M.D. on 12/30/2020 at 9:34
[2020-12-30] MEDS: NALOXONE 1 MG/ML SYRINGE 0.4 MG IV (02:11)
[2020-12-30 02:28] LABS: Basophils Absolute Auto 100 /uL (0-100); Basophils Percent Auto 1.4 % (0-2); Eosinophils Absolute Auto 300 /uL (0-450); Eosinophils Percent Auto 3.7 % (2-4); Hematocrit 24.1 % (41-53); Hemoglobin 8.1 g/dL (13.5-17.5); Lymphocytes Absolute Auto 1200 /uL (1100-4500); Lymphocytes Percent Auto 16.6 % (25-40); Mean Corpuscular HGB Conc 33.5 % (30-36); Mean Corpuscular Hemoglobin 37.5 PG (26-34); Mean Corpuscular Volume 112.1 fL (80-100); Monocytes Absolute Auto 700 /uL (0-900); Monocytes Percent Auto 9.5 % (3-14); Neutrophils Absolute Auto 5200 /uL (1500-7000); Neutrophils Percent Auto 68.8 % (50-75); Platelet Count 328 X10^3/uL (150-400); Red Blood Cell Count 2.15 X10^6/uL (4.5-5.9); Red Cell Distribution Width 16.2 % (11.6-14.8); White Blood Cell Count 7.5 X10^3/uL (4.5-11.0)
[2020-12-30 02:30] LABS: Add Manual Diff / Slide Review SLIDE REVIEW
[2020-12-30 02:34] LABS: Acetaminophen < 10 ug/mL (10-30); Ammonia (NH3) < 9 umol/L (9-30); Ethanol (ETOH) < 10 mg/dL; Salicylate < 1.0 mg/dL (<20)
[2020-12-30 02:35] LABS: Albumin 2.3 g/dL (3.5-5.0); Albumin Globulin Ratio 0.8 (1.0-2.8); Alkaline Phosphatase 112 U/L (38-126); Aspartate Aminotransferase 24 IU/L (17-59); Bilirubin Total 0.3 mg/dL (0.2-1.3); Blood Urea Nitrogen 14 mg/dL (9-20); Carbon Dioxide 22 mmol/L (22-32); Chloride 107 mmol/L (98-107); Creatine Kinase 33 U/L (55-170); Estimated Glomerular Filt Rate > 60.0 mL/min (>60); Globulin 2.9 g/dL (1.7-4.1); Glucose 104 mg/dL (80-110); HEMOLYSIS < 15 (0-50); Potassium 3.6 mmol/L (3.4-5.1); Sodium 135 mmol/L (137-145); Total Protein 5.2 g/dL (6.3-8.2)
[2020-12-30 02:41] LABS: Fractionated Inspired Oxygen 36; HCO3 ABG 24 mmol/L (22-26); Oxygen Saturation ABG 98 % (95-100); PCO2 ABG 36.4 mmHg (35-45); PO2 ABG 99 mmHg (80-100); TCO2 ABG 25 mmol/L (21-31); pH ABG 7.43 (7.35-7.45)
[2020-12-30 02:47] LABS: Troponin I 0.019 ng/mL (0.01-0.034)
[2020-12-30 02:53] LABS: Procalcitonin 0.09 ng/mL (<0.5)
[2020-12-30 02:54] LABS: Alanine Aminotransferase < 4 IU/L (<50)
[2020-12-30 03:00] LABS: Lactate (Lactic Acid) 0.9 mmol/L (0.7-2.1)
--- NOTE | 2020-12-30 03:06 | ED_ITS ---
HPI - Altered Mental Status General Chief Complaint: Unresponsive Stated Complaint: Stroke Time Seen by Provider: 12/30/20 01:57 Source: EMS Mode of arrival: EMS Limitations: other History of Present Illness HPI narrative: Patient is a 75-year-old male of hypertension, diabetes, CHF, rigor, AFib and pacemaker recently treated for septic shock and cellulitis of right foot. He currently has a PICC line in his right arm and receiving IV antibiotics. Who presents unresponsiveness. He was recently admitted to the hospital for right foot cellulitis and septic shock. He was discharged to [facility]. Today he was last seen normal at 10:00 p.m. by staff they checked on him very early this morning and found him unresponsive with unequal pupils. Patient is a DNR with limited interventions based on a POLST form signed 12/20/2020. He is un able to follow commands and is not arousable MD complaint: altered mental status and decreased responsiveness Related Data Home Medications Medication Instructions Recorded Confirmed Pepcid 20 mg PO PRN PRN 12/16/20 12/16/20 Protonix 20 mg PO DAILY PRN 12/16/20 12/16/20 Prozac 20 mg PO DAILY 12/16/20 12/16/20 allopurinol 300 mg PO DAILY 12/16/20 12/16/20 bumetanide 2 mg PO PRN PRN 12/16/20 12/16/20 isosorbide (solution) 30 mg PO QD-BID 12/16/20 12/16/20 levothyroxine 75 mg PO DAILY 12/16/20 12/16/20 metoprolol succinate 100 mg PO DAILY 12/16/20 12/16/20 pravastatin 20 mg PO QD-BID 12/16/20 12/16/20 Previous Rx's Medication Instructions Recorded docusate sodium [DOK] 100 mg PO BID #30 cap 12/20/20 folic acid 1 mg PO DAILY #30 tab 12/20/20 multivitamin with folic acid 1 tab PO DAILY #30 tab 12/20/20 [Tab-A-Rj] oxycodone 5 mg PO Q6HR PRN #10 tab 12/20/20 sennosides [senna] 17.2 mg PO BEDTIME #30 tab 12/20/20 thiamine HCl (vitamin B1) [Vitamin 100 mg PO DAILY #30 tab 12/20/20 B-1] Allergies Allergy/AdvReac Type Severity Reaction Status Date / Time No Known Drug Allergies Allergy Verified 12/15/20 22:09 Review of Systems Review of Systems ROS Unobtainable: Unobtainable due to medical condition and Unobtainable due to mental condition Patient History Medical History Coarse tremors Congestive heart failure Control of atrial fibrillation with pacemaker Depression GERD (gastroesophageal reflux disease) Gout Hypertension Type 2 diabetes mellitus with diabetic neuropathy Surgical History History of knee replacement Family History Mother Heart disease Stroke Father Congestive heart failure Renal failure Social History household members: none Smoking Status: Never smoker alcohol intake: current Smoking Status: Never smoker alcohol intake frequency: 0-2 drinks per day Substance Use Type: does not use Exam Initial Vital Signs Initial Vital Signs: Vital Signs Pulse Rate 68 12/30/20 01:55 Respiratory Rate 18 12/30/20 01:55 Gen.: 75-year-old male intermittently responsive to pain. And able to follow commands. HEENT: Head is atraumatic face is symmetric. Left pupil is more dilated than right by about 2 mm they are not responsive to light Neck: Supple no JVD Lungs: Clear bilaterally no gag reflex Cardiac: Regular rate no rhythm Abdomen: Soft non tender nondistended Extremities: No gross bony deformities peripheral pulses intact Neurologic: Sometimes responsive to pain no gag reflex face is symmetric and equal pupils not reactive to light Scores GCS [place] coma scale eye opening: None Elsie coma scale verbal response: Sounds [place]sie coma scale motor response: Normal flexion [place] coma scale total score: 7 Course Orders Ordered: ED Orders 12/30/20 Blood Culture Stat Urine Drug Screen, Rapid Stat EKG-12 Lead Stat 12/30/20 01:[address] angio head and neck Stat XR chest 1V Stat 12/30/20 02:15 Acetaminophen Stat Ammonia (NH3) Stat Complete Blood Count AUTO DIFF Stat Comprehensive Metabolic Panel Stat Ethanol (ETOH) Stat Lactate (Lactic Acid) Stat Procalcitonin Stat Salicylate Stat Troponin & CK Cardiac Panel Stat 12/30/20 02:28 Arterial Blood Gas Stat 12/30/20 02:36 COVID19 - ADMIT (STRIPPER [place] swab/PCR) Stat Artificial Tears (Polyvinyl Alcohol Drops) 1 drops EYE-BOTH Q2HR PRN PRN Reason: Dry Eye(s) Folic Acid (Folic Acid 1 Mg Tablet) 1 mg PO DAILY JACE Lorazepam (Lorazepam 2 Mg/Ml Inj) 1 mg IV Q1HR PRN PRN Reason: Agitation/Anxiety Multivitamins (Multivitamin 1 Tablet) 1 tab PO DAILY JACE Ondansetron HCl (Ondansetron 4 Mg/2 Ml Inj) 4 mg IV Q4HR PRN PRN Reason: Nausea And Vomiting Thiamine HCl (Thiamine 100 Mg Tablet) 100 mg PO DAILY JACE Stop: 01/02/21 09:01 Discontinued Medications Naloxone HCl (Naloxone 1 Mg/Ml Syringe) 0.4 mg IV NOW ONE Stop: 12/30/20 02:01 Last Admin: 12/30/20 02:11 Dose: 0.4 mg Documented by: BRIAN Vital Signs Vital signs: Vital Signs - 8 hr 12/30/20 01:55 12/30/20 02:16 12/30/20 02:30 Temperature 98.4 F Pulse Rate 68 61 61 Respiratory Rate 18 16 16 Blood Pressure 128/82 123/59 L Pulse Oximetry 94 98 12/30/20 02:47 12/30/20 03:00 12/30/20 03:01 Temperature Pulse Rate 60 60 60 Respiratory Rate 15 18 15 Blood Pressure 111/55 L Pulse Oximetry 98 97 99 MDM - Altered Mental Status Lab Data Attestation: I reviewed the patient's lab results. Result diagrams: 12/30/20 02:15 12/30/20 02:15 Labs: Lab Results 12/30/20 12/30/20 12/30/20 Range/Units 02:15 02:15 02:15 WBC 7.5 (4.5-11.0) X10^3/uL RBC 2.15 L (4.5-5.9) X10^6/uL Hgb 8.1 L (13.5-17.5) g/dL Hct 24.1 L (41-53) % MCV 112.1 H (80-100) fL MCH 37.5 H (26-34) PG MCHC 33.5 (30-36) % RDW 16.2 H (11.6-14.8) % Plt Count 328 (150-400) X10^3/uL Neut % (Auto) 68.8 (50-75) % Lymph % (Auto) 16.6 L (25-40) % [place] % (Auto) 9.5 (3-14) % Eos % (Auto) 3.7 (2-4) % Baso % (Auto) 1.4 (0-2) % Neut # (Auto) 5200 (2727-9343) /uL Lymph # (Auto) 1200 (2737-3588) /uL [place] # (Auto) 700 (0-900) /uL Eos # (Auto) 300 (0-450) /uL Baso # (Auto) 100 (0-100) /uL ABG pH (7.35-7.45) ABG pCO2 (35-45) mmHg ABG pO2 (80-100) mmHg ABG HCO3 (22-26) mmol/L ABG Total CO2 (21-31) mmol/L ABG O2 Saturation (95-100) % ABG Base Excess (-2-2) mmol/L FiO2 Sodium 135 L (137-145) mmol/L Potassium 3.6 (3.4-5.1) mmol/L Chloride 107 (98-107) mmol/L Carbon Dioxide 22 (22-32) mmol/L BUN 14 (9-20) mg/dL Creatinine 1.00 (0.66-1.25) mg/dL Estimated GFR > 60.0 (>60) mL/min BUN/Creatinine Ratio 14.0 (6-22) Glucose 104 (80-110) mg/dL Lactate 0.9 (0.7-2.1) mmol/L Calcium 8.0 L (8.4-10.2) mg/dL Total Bilirubin 0.3 (0.2-1.3) mg/dL AST 24 (17-59) IU/L ALT < 4 (<50) IU/L Alkaline Phosphatase 112 (38-126) U/L Ammonia (9-30) umol/L Total Creatine Kinase 33 L (55-170) U/L CK-MB (CK-2) TNP CK-MB (CK-2) Rel Index TNP Troponin I 0.019 (0.01-0.034) ng/mL Total Protein 5.2 L (6.3-8.2) g/dL Albumin 2.3 L (3.5-5.0) g/dL Globulin 2.9 (1.7-4.1) g/dL Albumin/Globulin Ratio 0.8 L (1.0-2.8) Procalcitonin (<0.5) ng/mL Salicylates (<20) mg/dL Acetaminophen (10-30) ug/mL Ethyl Alcohol ( - 10) mg/dL SARS-CoV-2 (PCR) (Negative) 12/30/20 12/30/20 12/30/20 Range/Units 02:15 02:15 02:15 WBC (4.5-11.0) X10^3/uL RBC (4.5-5.9) X10^6/uL Hgb (13.5-17.5) g/dL Hct (41-53) % MCV (80-100) fL MCH (26-34) PG MCHC (30-36) % RDW (11.6-14.8) % Plt Count (150-400) X10^3/uL Neut % (Auto) (50-75) % Lymph % (Auto) (25-40) % [place] % (Auto) (3-14) % Eos % (Auto) (2-4) % Baso % (Auto) (0-2) % Neut # (Auto) (0359-4854) /uL Lymph # (Auto) (7923-4386) /uL [place] # (Auto) (0-900) /uL Eos # (Auto) (0-450) /uL Baso # (Auto) (0-100) /uL ABG pH (7.35-7.45) ABG pCO2 (35-45) mmHg ABG pO2 (80-100) mmHg ABG HCO3 (22-26) mmol/L ABG Total CO2 (21-31) mmol/L ABG O2 Saturation (95-100) % ABG Base Excess (-2-2) mmol/L FiO2 Sodium (137-145) mmol/L Potassium (3.4-5.1) mmol/L Chloride (98-107) mmol/L Carbon Dioxide (22-32) mmol/L BUN (9-20) mg/dL Creatinine (0.66-1.25) mg/dL Estimated GFR (>60) mL/min BUN/Creatinine Ratio (6-22) Glucose (80-110) mg/dL Lactate (0.7-2.1) mmol/L Calcium (8.4-10.2) mg/dL Total Bilirubin (0.2-1.3) mg/dL AST (17-59) IU/L ALT (<50) IU/L Alkaline Phosphatase (38-126) U/L Ammonia < 9 L (9-30) umol/L Total Creatine Kinase (55-170) U/L CK-MB (CK-2) CK-MB (CK-2) Rel Index Troponin I (0.01-0.034) ng/mL Total Protein (6.3-8.2) g/dL Albumin (3.5-5.0) g/dL Globulin (1.7-4.1) g/dL Albumin/Globulin Ratio (1.0-2.8) Procalcitonin 0.09 (<0.5) ng/mL Salicylates < 1.0 (<20) mg/dL Acetaminophen < 10 L (10-30) ug/mL Ethyl Alcohol < 10 ( - 10) mg/dL SARS-CoV-2 (PCR) (Negative) 12/30/20 12/30/20 Range/Units 02:28 02:36 WBC (4.5-11.0) X10^3/uL RBC (4.5-5.9) X10^6/uL Hgb (13.5-17.5) g/dL Hct (41-53) % MCV (80-100) fL MCH (26-34) PG MCHC (30-36) % RDW (11.6-14.8) % Plt Count (150-400) X10^3/uL Neut % (Auto) (50-75) % Lymph % (Auto) (25-40) % [place] % (Auto) (3-14) % Eos % (Auto) (2-4) % Baso % (Auto) (0-2) % Neut # (Auto) (3437-0860) /uL Lymph # (Auto) (4720-9376) /uL [place] # (Auto) (0-900) /uL Eos # (Auto) (0-450) /uL Baso # (Auto) (0-100) /uL ABG pH 7.43 (7.35-7.45) ABG pCO2 36.4 (35-45) mmHg ABG pO2 99 (80-100) mmHg ABG HCO3 24 (22-26) mmol/L ABG Total CO2 25 (21-31) mmol/L ABG O2 Saturation 98 (95-100) % ABG Base Excess 0.0 (-2-2) mmol/L FiO2 36 Sodium (137-145) mmol/L Potassium (3.4-5.1) mmol/L Chloride (98-107) mmol/L Carbon Dioxide (22-32) mmol/L BUN (9-20) mg/dL Creatinine (0.66-1.25) mg/dL Estimated GFR (>60) mL/min BUN/Creatinine Ratio (6-22) Glucose (80-110) mg/dL Lactate (0.7-2.1) mmol/L Calcium (8.4-10.2) mg/dL Total Bilirubin (0.2-1.3) mg/dL AST (17-59) IU/L ALT (<50) IU/L Alkaline Phosphatase (38-126) U/L Ammonia (9-30) umol/L Total Creatine Kinase (55-170) U/L CK-MB (CK-2) CK-MB (CK-2) Rel Index Troponin I (0.01-0.034) ng/mL Total Protein (6.3-8.2) g/dL Albumin (3.5-5.0) g/dL Globulin (1.7-4.1) g/dL Albumin/Globulin Ratio (1.0-2.8) Procalcitonin (<0.5) ng/mL Salicylates (<20) mg/dL Acetaminophen (10-30) ug/mL Ethyl Alcohol ( - 10) mg/dL SARS-CoV-2 (PCR) Negative (Negative) Imaging Data CT scan - head: Radiologist's Impression: Preliminary report: Left cerebellar infarct w ithout evidence of associated hemorrhage CTA - brain/neck: Radiologist's Impression: Occlusion of 1 cm segment of distal basilar reny ry just proximal to with termination. This finding is associated with non opacification of a super cerebellar arteries bilaterally and no opacification over right anterior inferior cerebellar arteries. There is severe stenosis involving proximal internal carotid artery by laterally however vessels remain patent throughout their course. Atherosclerotic plaque and thrombus within right vertebral artery and its origin to approximately the level of C3 vertebral body the vessel reconstitutes at this level and his pain distal to this point. Large bilateral pleural effusions. Heterogeneous to fill noted with and trachea may be secondary to inspissated secretions. Chest x-ray: Radiologist's Impression: Cardiomegaly associated with bilateral pleural effusions bilateral hilar airspace disease ECG Data Attestation: I personally reviewed and interpreted this ECG as follows: Prior ECG tracings: available for review Interpretation: Ventricular paced rhythm rate 65 no P-waves no ST changes wide complexes MDM Narrative Medical decision making narrative: Patient is brought in as a code stroke and sent directly to head CT. No intracranial process is found CT angio is ordered. He really is unable to respond and has all low GCS and was certainly qualify for his intubation. I have spoken with daughter who states that he is always been a DNR since they lost her mom about 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 At this time she does not want any further intervention and would like to make her father comfortable. His this goes with his previous wishes in his life long commitment to his . She does not want any neurologic interventions or intubation. Unable to do N IH because he is not participating Discussed case with Angela BANKS who accepts patient for observation Discharge Plan Departure Admit Date/Time: 12/30/20 03:29 Admit Provider: Angela Price
[2020-12-30 03:38] LABS: COVID19 - ADMIT (NP swab/PCR) Negative (Negative)
--- NOTE | 2020-12-30 03:50 | PM.HP.1 ---
History of Present Illness History of Present Illness Date Patient Seen: 12/30/20 Time Patient Seen: 03:50 Chief complaint: Stroke Narrative: Patient is a 75-year-old male nonsmoker, with history of HTN, DM, CHF, GERD, AFib and pacemaker. Patient was previously hospitalized from 12/16-12/20 for septic shock secondary to cellulitis toe with encephalopathy and seizure possibly secondary to alcohol withdrawal. Patient was brought in via EMS his last known normal was approximately 10:00 p.m. on 12/29/2020 he was unarousable by family. The patient was also unarousable by the ED, he was found to have basilar stroke on Head CT. Patient's daughter was contacted and advised that patient be admitted for comfort care only, code status DNR. Patient's Primary is at the [facility]. His daughter is an RN who lives within a mile of father who lives alone she goes by per day to provide care. Patient is hemodynamically stable, unarousable, and appears in no distress at this time. Patient's labs were fairly unremarkable upon admit a slight anemia with a hemoglobin of 8.1 and hematocrit 24.1, vital signs were stable temp of 98.4?, BP 123/59, HR 61, R 16, with an O2 saturation of 98% on room air. Patient will be admitted for stroke/comfort measures. Patient History Medical History Coarse tremors Congestive heart failure Control of atrial fibrillation with pacemaker Depression GERD (gastroesophageal reflux disease) Gout Hypertension Type 2 diabetes mellitus with diabetic neuropathy Surgical History History of knee replacement Family & Social History Family History Mother Heart disease Stroke Father Congestive heart failure Renal failure Social History: household members none, Pt is a within the past year, lives alone, daughter 1 mile away. Tobacco & Substance use: Smoking Status Never smoker alcohol intake current alcohol intake frequency 0-2 drinks per day Substance Use Type does not use Meds Home Medications and Allergies Home Medications Medication Instructions Recorded Confirmed Type Pepcid 20 mg PO PRN PRN 12/16/20 12/16/20 History Protonix 20 mg PO DAILY PRN 12/16/20 12/16/20 History Prozac 20 mg PO DAILY 12/16/20 12/16/20 History allopurinol 300 mg PO DAILY 12/16/20 12/16/20 History bumetanide 2 mg PO PRN PRN 12/16/20 12/16/20 History isosorbide (solution) 30 mg PO QD-BID 12/16/20 12/16/20 History levothyroxine 75 mg PO DAILY 12/16/20 12/16/20 History metoprolol succinate 100 mg PO DAILY 12/16/20 12/16/20 History pravastatin 20 mg PO QD-BID 12/16/20 12/16/20 History docusate sodium [DOK] 100 mg PO BID #30 cap 12/20/20 Rx folic acid 1 mg PO DAILY #30 tab 12/20/20 Rx multivitamin with folic acid 1 tab PO DAILY #30 tab 12/20/20 Rx [Tab-A-Rj] oxycodone 5 mg PO Q6HR PRN #10 tab 12/20/20 Rx sennosides [senna] 17.2 mg PO BEDTIME #30 tab 12/20/20 Rx thiamine HCl (vitamin B1) [Vitamin 100 mg PO DAILY #30 tab 12/20/20 Rx B-1] Allergies Allergy/AdvReac Type Severity Reaction Status Date / Time No Known Drug Allergies Allergy Verified 12/15/20 22:09 Review of Systems Review of Systems ROS: Yes unobtainable due to mental status Exam Vital Signs (past 8 hours): - 12/30/20 01:55 12/30/20 02:16 12/30/20 02:30 Temperature 98.4 F Pulse Rate 68 61 61 Respiratory Rate 18 16 16 Blood Pressure 128/82 123/59 L Pulse Oximetry 94 98 Oxygen Delivery Method Nasal Cannula Oxygen Flow Rate 4 Narrative Exam Narrative: Exam Narrative: : Patient is a well-developed, well-nourished, unresponsive and does not open his eyes, appears in no distress at this time. HEENT: Normocephalic, atraumatic. Negative for JVD Chest: no nasal flaring, retractions, or tachypneic labored Lungs: Auscultation of all lung [place] are clear without adventitious sounds, wheezes, rhonchi, or rales. Cardio: regular rate and rhythm without murmur, rubs, or gallops, no carotid bruit, no cardiac pulsations present. Pacemaker in place Abdomen: Soft nontender, negative for organomegaly, or masses. Bowel sounds are hypoactive present in all 4 quadrants without guarding or rebound, no CVA tenderness. Musculoskeletal: no deformity, crepitus, effusions, cyanosis, clubbing or edema present. radial and pedal pulses are normal. Skin: Warm dry and intact without rashes, ulcerations or petechiae. Objective Labs Result Diagrams: 12/30/20 02:15 12/30/20 02:15 Labs: Laboratory Results - last 24 hr 12/30/20 12/30/20 12/30/20 02:15 02:15 02:15 WBC 7.5 RBC 2.15 L Hgb 8.1 L Hct 24.1 L MCV 112.1 H MCH 37.5 H MCHC 33.5 RDW 16.2 H Plt Count 328 Neut % (Auto) 68.8 Lymph % (Auto) 16.6 L [place] % (Auto) 9.5 Eos % (Auto) 3.7 Baso % (Auto) 1.4 Neut # (Auto) 5200 Lymph # (Auto) 1200 [place] # (Auto) 700 Eos # (Auto) 300 Baso # (Auto) 100 ABG pH ABG pCO2 ABG pO2 ABG HCO3 ABG Total CO2 ABG O2 Saturation ABG Base Excess FiO2 Sodium 135 L Potassium 3.6 Chloride 107 Carbon Dioxide 22 BUN 14 Creatinine 1.00 Estimated GFR > 60.0 BUN/Creatinine Ratio 14.0 Glucose 104 Lactate 0.9 Calcium 8.0 L Total Bilirubin 0.3 AST 24 ALT < 4 Alkaline Phosphatase 112 Ammonia Total Creatine Kinase 33 L CK-MB (CK-2) TNP CK-MB (CK-2) Rel Index TNP Troponin I 0.019 Total Protein 5.2 L Albumin 2.3 L Globulin 2.9 Albumin/Globulin Ratio 0.8 L Procalcitonin Salicylates Acetaminophen Ethyl Alcohol SARS-CoV-2 (PCR) 12/30/20 12/30/20 12/30/20 02:15 02:15 02:15 WBC RBC Hgb Hct MCV MCH MCHC RDW Plt Count Neut % (Auto) Lymph % (Auto) [place] % (Auto) Eos % (Auto) Baso % (Auto) Neut # (Auto) Lymph # (Auto) [place] # (Auto) Eos # (Auto) Baso # (Auto) ABG pH ABG pCO2 ABG pO2 ABG HCO3 ABG Total CO2 ABG O2 Saturation ABG Base Excess FiO2 Sodium Potassium Chloride Carbon Dioxide BUN Creatinine Estimated GFR BUN/Creatinine Ratio Glucose Lactate Calcium Total Bilirubin AST ALT Alkaline Phosphatase Ammonia < 9 L Total Creatine Kinase CK-MB (CK-2) CK-MB (CK-2) Rel Index Troponin I Total Protein Albumin Globulin Albumin/Globulin Ratio Procalcitonin 0.09 Salicylates < 1.0 Acetaminophen < 10 L Ethyl Alcohol < 10 SARS-CoV-2 (PCR) 12/30/20 12/30/20 02:28 02:36 WBC RBC Hgb Hct MCV MCH MCHC RDW Plt Count Neut % (Auto) Lymph % (Auto) [place] % (Auto) Eos % (Auto) Baso % (Auto) Neut # (Auto) Lymph # (Auto) [place] # (Auto) Eos # (Auto) Baso # (Auto) ABG pH 7.43 ABG pCO2 36.4 ABG pO2 99 ABG HCO3 24 ABG Total CO2 25 ABG O2 Saturation 98 ABG Base Excess 0.0 FiO2 36 Sodium Potassium Chloride Carbon Dioxide BUN Creatinine Estimated GFR BUN/Creatinine Ratio Glucose Lactate Calcium Total Bilirubin AST ALT Alkaline Phosphatase Ammonia Total Creatine Kinase CK-MB (CK-2) CK-MB (CK-2) Rel Index Troponin I Total Protein Albumin Globulin Albumin/Globulin Ratio Procalcitonin Salicylates Acetaminophen Ethyl Alcohol SARS-CoV-2 (PCR) Negative Assessment & Plan Assessment & Plan narrative: 1. Basilar stroke, acute, present on admission -as evidence by CT -patient was unarousable upon exam appears in no distress or discomfort. GCS:3 -patient admitted under comfort measures 2 atrial fibrillation controlled with pacemaker, chronic, present on admission-well controlled -holding patient's metoprolol, isosorbide 3. Hypertension in the setting of congestive heart failure preserved EF 55-60% without exacerbation, chronic, present on admission -will hold patient's metoprolol, bumetanide, pravastatin-until such time as mental status change with protected airway 4. History of Type 2 diabetes with neuropathy, acute on chronic, present on admission-well controlled -Last A1C 12/17/2020 4.7% 5. Hypothyroidism, chronic, present on admission -holding patient's levothyroxine 6.GERD, chronic, present on admission-control unknown Holding patient's Protonix 7. Depression, chronic, present on admission-control unknown Unable to assess depression or anxiety, holding patient's Prozac 5. Alcohol abuse with concern for withdrawal seizure, -started on CIWA protocol -give IV ativan in setting of possible seizure -if worsening symptoms start librium -holding thiamine folate Code status: DNR Surrogate decision maker: daughter Sabina Monique COVID PCR: Negative VTE/DVT prophylaxis: Medication contraindicated due to acute stroke, SCDs Only Scores GCS [place] coma scale eye opening: None Elsie coma scale verbal response: None Elsie coma scale motor response: None Elsie coma scale total score: 3
[2020-12-30 06:22] LABS: Anisocytosis 2+; Macrocytosis 3+; Schistocytes 1+
--- NOTE | 2020-12-30 08:17 | PC.NURSE ---
Day shift: Pt having difficulty clearing secretions this AM. RT informed and they did suctioning. RT also placed humidifier solution for Pt's nasal cannulla. Pt did not open eyes or respond in any way this AM on assessment. No s/s of ETOH withdrawal. VS WNL. BG 86. Bed alarm is on. Call light in reach. Door to room is open.
[2020-12-30] MEDS: SODIUM CHLORIDE 0.9% FLUSH 10 ML IV ×2 (09:35→20:02)
[2020-12-30 09:53] LABS: UR Morphine/Opiate cutoff 300 Negative (Negative); Ur Creatinine Normal (Normal); Ur Specific Gravity Normal (Normal); Urine Amphetamines Negative (Negative); Urine Barbiturates Negative (Negative); Urine Benzodiazepines Positive (Negative); Urine Cocaine Negative (Negative); Urine MDMA Negative (Negative); Urine Methadone Negative (Negative); Urine Methamphetamines Negative (Negative); Urine Oxycodone Negative (Negative); Urine Phencyclidine Negative (Negative); Urine Tetrahydrocannabinol Negative (Negative); Urine Tricyclic Antidepressant Negative (Negative); Urine pH Normal (Normal)
[2020-12-30] MEDS: SCOPOLAMINE 1 PATCH TOP (10:42)
[2020-12-30] MEDS: ATROPINE 1% OPHTH 2 DROPS SL ×3 (10:55→20:02)
--- NOTE | 2020-12-30 11:00 | PT-IP ANOTE ---
EMR reviewed. Talked with human services case manager and stated that family wants pt to just be comfort care. nurse stated that pt is not alert. human services case manager agreed to d/c PT eval order and will confer with MD.
--- NOTE | 2020-12-30 11:11 | SLP.IPNOTE ---
EMR reviewed. Pt is non-responsive and pt's family have requested comfort care only. Spoke with nursing who confirmed status. Pt is not appropriate for ST at this time. Discharge at this time.
--- NOTE | 2020-12-30 11:54 | OT.IPNOTE ---
OT eval order received. Chart reviewed and nursing consulted. Pt is unresponsive at this time with possible plan for comfort care only. Will discharge OT eval order at this time.
--- NOTE | 2020-12-30 14:52 | CM.IDA ---
Addendum entered by ALBERTINA Adair 12/30/20 15:35: According to SWETHA Mejia, info visit available tomorrow and likely RN w/RAFFYW available Saturday or Saturday for start of care. Family requesting Hospital bed, updated Jackie. Original Note: Initial DCP Assessment Note Patient is a 75 yo male, recently admitted to 12/16-12/20 for septic shock secondary to cellulitis toe with encephalopathy and seizure w/alcohol withdrawal, DC to [facility] 6.03.04. Patient returns w/stroke symptoms; basilar stroke confirmed on Head CT, admitted observation for comfort management per dtr/JOSE L Muhammad. PCP: Lashon Garay Payer: [facility]/ [facility] Reviewed chart. Spoke w/CHRISTINE Fernández, patient has been unresponsive since arrival. Met w/dtr/DPOA Sabina and her spouse Rolando in patient's room this afternoon, introduced role. Sabina explains that patient has not been happy since his , Sabina's mother, approx 2 years ago. Patient started to drink heavily and his health had been declining drastically. Sabina and spouse were discussing taking patient home when DC from [facility] and now are considering taking patient home w/hospice service in place. Sabina requests this MANAGER INTEGRATED make referral to [facility] today and explains she would like to discuss findings on imaging w/hospitalist Dr Juarez if available today- relayed this to Dr Katelyn Mclaughlin, [facility], has kindly begun referral to [facility] today. Family explain they have obligations today and tomorrow for their dtr's school graduations and will begin to organize their home and organize additional care for bringing patient home Saturday Following closely for coordination of plan. Family aware that SNF/[facility] is a temporary option upon DC. ALBERTINA Adair Discharge Planning/Care Management Advanced directive, confirm from FAMILY Start: 12/30/20 07:44 Freq: Q24H Status: Complete Protocol: Document 12/30/20 13:42 YAD (Rec: 12/30/20 13:42 YAD [id number]) Advance Directive, confirm on record Time 13:42 Person contacted POA. Pt's daughter. Copy placed in Pt's chart. Copy received Yes CM Discharge Assessment Start: 12/30/20 14:46 Freq: Status: Active Protocol: Document 12/30/20 14:46 BEBO (Rec: 12/30/20 14:52 BEBO [id number]) Discharge Planning Assessment Assigned Police Crime Scene Technician ALBERTINA Lujan DPOA/Assigned Designee Name Sabina Oswald dtr Contact Information home: [phone] cell: [phone] Rolando, son in law: [phone] Advance Directives? Yes Advance Directives on File Yes History Provided By Family Member,Medical Record Prior Living Arrangements Skilled Nurse Facility Household Members none Facility Name Admitted From: [facility] Independent with ADL's No Is patient alert and oriented? Yes: At baseline, has been a heavy drinker since spouse Needs Assistance With Bathing,Grooming,Meal Prep, Toileting,Managing Medications ,Home Chores / Shopping Comment Home w/hospice is expected Barriers to Discharge No Comment Likely family will take patient home w/hospice Discharge Plan Hospice Transportation Arrangement BLS Additional Comment Hospice [facility]
--- NOTE | 2020-12-30 14:52 | CM.DPNOTE ---
Addendum entered by Whitney Georges 12/30/20 15:07: Faxed POA for HC seperately on 12/30/20 to [facility] and received fax confirmation. Whitney Georges CM Asst. Original Note: Faxed referral packet to [facility] requested by Britt on 12/30/20 and received fax confirmation. Whitney Georges CM Asst.
[2020-12-30] MEDS: MORPHINE 2 MG/ML INJ IV ×2 (16:55→19:58)
--- NOTE | 2020-12-30 19:14 | PC.NURSE ---
Discharge Note Patient A&O, VSS, RA, no complaints of chest pain or shortness of breath. Discharge packet reviewed with patient and , all questions/concerns addressed. TELE/PIV discontinued. Patient able to dress self independently. Patient reminded to garbage pick up man prescriptions from preferred pharmacy on way home. All patient belongings and discharge packet given to patient and . Patient taken down to personal POV.
[2020-12-30] MEDS: LORazepam 2 MG/ML INJ 1 MG IV (20:04)
--- NOTE | 2020-12-31 06:37 | PC.NURSE ---
Pt. has been unresponsive all shift, with long period of apnea. No sign & symptoms pain, no restlessness noted. Will continue to monitor.
[2020-12-31 07:00] VITALS: BP 112/67; PULSE 66; RESP 10; TEMP 37.3; O2SAT 95
--- NOTE | 2020-12-31 07:28 | P.PN_ITS ---
Subjective Subjective Date Patient Seen: 12/31/20 Time Patient Seen: 10:28 Interval history: He is seen in his room here on 12/31/2020. He is Navneet- Avelar breathing, taking up to 22nd pauses between breaths. He is unresponsive but at times seems aware of physical presence. Morphine has been given. His appears to be imminent. The hemoglobin has dropped from 10.7 down to 8.1. His T-max is 99.8?. Vital signs are otherwise stable. The albumin was 2.3. Exam Vital Signs (past 8 hours): - 12/30/20 23:43 Temperature 99.8 F H Pulse Rate 62 Respiratory Rate 12 Blood Pressure 118/59 L Pulse Oximetry 95 Oxygen Delivery Method Room Air Oxygen Flow Rate 0 Narrative Exam Narrative: He is deeply sedated, Navneet-Avelar breathing and appears imminently terminal. Heart is regular rate and rhythm without murmur Breathing is very slow, up to 22nd pauses between breaths. Lungs are clear Abdomen is apparently nontender There is no ankle edema Objective Labs Result Diagrams: 12/30/20 02:15 12/30/20 02:15 Labs: Laboratory Results - last 24 hr 12/30/20 09:37 U Opiates 300ng/mL cut Negative Ur Oxycodone Screen Negative Urine Methadone Screen Negative Ur Barbiturates Screen Negative U Tricyclic Antidepress Negative Ur Phencyclidine Scrn Negative Ur Amphetamines Screen Negative U Methamphetamines Scrn Negative Ur MDMA Scrn (Ecstasy) Negative U Benzodiazepines Scrn Positive H Urine Cocaine Screen Negative U Marijuana (THC) Screen Negative PFS Medical History Coarse tremors Congestive heart failure Control of atrial fibrillation with pacemaker Depression GERD (gastroesophageal reflux disease) Gout Hypertension Type 2 diabetes mellitus with diabetic neuropathy Surgical History History of knee replacement Family History Mother Heart disease Stroke Father Congestive heart failure Renal failure Social History household members: none Smoking Status: Never smoker alcohol intake: never Assessment & Plan Assessment & Plan narrative: 1. Basilar stroke, acute, present on admission -as evidence by CT on admission -patient was unarousable upon exam appears in no distress or discomfort. GCS:3 -patient admitted under comfort measures and appears to be imminently terminal 2 atrial fibrillation controlled with pacemaker, chronic, present on admission- well controlled -holding metoprolol, isosorbide 3. Hypertension in the setting of congestive heart failure preserved EF 55-60% without exacerbation, chronic, present on admission -holding metoprolol, bumetanide, pravastatin 4. History of Type 2 diabetes with neuropathy, acute on chronic, present on admission-well controlled -Last A1C 12/17/2020 4.7% 5. Hypothyroidism, chronic, present on admission -holding levothyroxine 6.GERD, chronic, present on admission-control unknown Holding Protonix 7. Depression, chronic, present on admission-control unknown Unable to assess depression or anxiety, holding Prozac 5. Alcohol abuse with concern for withdrawal seizure, -started on CIWA protocol -give IV ativan in setting of possible seizure -if worsening symptoms start librium -holding thiamine folate Code status: DNR Surrogate decision maker: daughter Sabina Monique COVID PCR: Negative VTE/DVT prophylaxis: Medication contraindicated due to acute stroke, SCDs Only Quality VTE Deep Vein Thrombosis/Pulmonary Embolism Present on Admission: Yes
--- NOTE | 2020-12-31 07:57 | PC.NURSE ---
Addendum entered by Justino Leblanc R.N. 12/31/20 11:47: Mouth care and suctioning done. Pt j luis well. RN spoke with son-in-law Rolando about Pt's condition. Daughter Sabina and Rolando will be in this afternoon. Original Note: Pt continues unresponsive with pronounced apneic episodes 45 seconds to a minute in duration. Pt appears restful, facial features relaxed. RR unlaboured though apneic. Family aware of PT's condition. Continue to keep comfortable.
[2020-12-31] MEDS: SODIUM CHLORIDE 0.9% FLUSH 10 ML IV ×2 (09:36→19:44)
[2020-12-31 15:40] VITALS: BP 123/56; PULSE 60; RESP 15; TEMP 37.2
[2020-12-31] MEDS: ATROPINE 1% OPHTH 2 DROPS SL (19:45)
[2020-12-31 23:33] VITALS: BP 133/54; PULSE 63; RESP 22; TEMP 37.7
[2021-01-01] MEDS: ATROPINE 1% OPHTH 2 DROPS SL (04:32)
[2021-01-01 07:00] VITALS: BP 122/63; PULSE 66; RESP 10; TEMP 37.7; O2SAT 97
--- NOTE | 2021-01-01 07:27 | PM.PN.1 ---
Subjective Subjective Date Patient Seen: 01/01/21 Interval history: He is breathing in a more regularized fashion today. He has a lot more upper airway gurgling sound with secretions. Hospice has been contacted and they are apparently available to start coverage with him tomorrow when he goes back to his daughter's house. A bed is being delivered today. His T-max is 99.9?. Exam Vital Signs (past 8 hours): - 12/31/20 23:33 Temperature 99.9 F H Pulse Rate 63 Respiratory Rate 22 Blood Pressure 133/54 L Oxygen Delivery Method Room Air Oxygen Flow Rate 0 Narrative Exam Narrative: He remains unresponsive, asleep and comatose. Louder upper airway gargling sounds with breathing. Heart is regular rate and rhythm without murmur Lungs with loud upper airway crackles No ankle edema Objective Labs Result Diagrams: 12/30/20 02:15 12/30/20 02:15 [facility] Medical History Coarse tremors Congestive heart failure Control of atrial fibrillation with pacemaker Depression GERD (gastroesophageal reflux disease) Gout Hypertension Type 2 diabetes mellitus with diabetic neuropathy Surgical History History of knee replacement Family History Mother Heart disease Stroke Father Congestive heart failure Renal failure Social History household members: none Smoking Status: Never smoker alcohol intake: never Assessment & Plan Assessment & Plan narrative: 1. Basilar stroke, acute, present on admission -See on CT head -patient is now comatose -patient admitted under comfort measures and appears to be imminently terminal -supply planner reports hospice is available to begin coverage at the daughter's home tomorrow once a hospital bed is delivered today so discharge is planned for 01/02. He could before then. 2 atrial fibrillation controlled with pacemaker, chronic, present on admission-well controlled -holding metoprolol, isosorbide 3. Hypertension in the setting of congestive heart failure preserved EF 55-60% without exacerbation, chronic, present on admission -holding metoprolol, bumetanide, pravastatin 4. History of Type 2 diabetes with neuropathy, acute on chronic, present on admission-well controlled -Last A1C 12/17/2020 4.7% 5. Hypothyroidism, chronic, present on admission -holding levothyroxine 6.GERD, chronic, present on admission-control unknown Holding Protonix 7. Depression, chronic, present on admission-control unknown Unable to assess depression or anxiety, holding Prozac 5. Alcohol abuse with concern for withdrawal seizure, -started on CIWA protocol -give IV ativan in setting of possible seizure -if worsening symptoms start librium -holding thiamine folate Code status: DNR Surrogate decision maker: daughter Sabina Monique COVID PCR: Negative VTE/DVT prophylaxis: Medication contraindicated due to acute stroke, SCDs Only Quality VTE Deep Vein Thrombosis/Pulmonary Embolism Present on Admission: Yes
--- NOTE | 2021-01-01 13:03 | CM.DPC ---
DCP Home with Hospice Planning: Per MD, pt still remains somewhat stable but seeming to be quite imminent but family continues to want to have pt home on Hospice. SW spoke to pt's Dtr/DPOA Sabina and LAURA Rolando via phone and they confirm they want pt home with Hospice but requesting hospital bed to be re-delivered as they were not anticipating delivery yesterday and they refused it. They do not feel they should have to pay stat-delivery fee. SW spoke to Tracy at [facility] and confirmed that family would like hospital bed delivered again and discussed the situation and Hospice SW called family and determined that [facility] can deliver bed today to Dtr's home ([address] [place]) without additional fee attached. [facility] can open pt to service tomorrow 01/02/21 between [id number]. SW called Dtr and LAURA back and updated on above and they are very appreciative. SW discussed mode of transport home and family preference is BLS transport and SW discussed that there is a chance that Medicare will not cover all or any and therefore did not want them to be caught off guard if they received a bill from BLS transport if MCR doesnt cover. They acknowledged understanding and confirmed they would still like BLS set up at d/c to their home. SW called [facility] and scheduled BLS transport for tomorrow 01/02/21 for 0900 and updated MD and RN and also called family back and updated on d/c time and confirmed only one step to enter the house and no other stairs. Plan: SW to follow for plan of d/c home to Dtrs house tomorrow via [facility] BLS around 0900 with [facility] to open pt to service between [id number]. ALBERTINA Warner
[2021-01-01 15:50] VITALS: BP 136/53; PULSE 60; RESP 16; TEMP 37.8; O2SAT 78
[2021-01-02 00:20] VITALS: BP 152/67; PULSE 61; RESP 24; TEMP 39.4; O2SAT 82
[2021-01-02 01:02] VITALS: TEMP 38.6; O2SAT 69
[2021-01-02] MEDS: KETOROLAC 30 MG/ML VIAL 15 MG IV ×2 (01:02→06:26)
[2021-01-02] MEDS: SODIUM CHLORIDE 0.9% FLUSH 10 ML IV ×2 (01:03→06:27)
[2021-01-02] MEDS: ATROPINE 1% OPHTH 2 DROPS SL ×2 (01:07→05:58)
[2021-01-02 02:05] VITALS: TEMP 37.4
--- NOTE | 2021-01-02 02:20 | PC.NURSE ---
Addendum entered by Irish Benites R.N. 01/02/21 06:00: Increased gurgling respirations noted so provided oral suctioning with thick white mucus returned; medicated with Atropine drops. O2 sat 79% and temp back up to 103.3 axillary Original Note: patient is nonresponsive. Breath sounds with expiratory rhonchi and gurgling sounding respirations; medicated with Atropine. Temp elevated initially at 102.9 and ice packs applied to axilla; on recheck temp still 101.4 so Albert BANKS, informed and order received for Toradol which was given and temp is now 99.4. Initial oximetry reading was 82% and down to 69% on recheck. Using abdominal muscles to breathe. BP elevated at 152/67. BT absent. Indwelling catheter is patent; urine is clear flakita. Is being repositioned q2h as not moving on his own. Bilateral hands appear puffy. Scattered bruising. Coversite dressing to right hip is CDI. Open area to right 2nd toe with bone obvious. FLACC score is 0. On contact isolation as was + for MRSA in nares. Fall risk score is low at present time.
[2021-01-02 06:04] VITALS: RESP 24; TEMP 39.6; O2SAT 79
[2021-01-02 06:26] VITALS: TEMP 39.6
[2021-01-02 07:46] VITALS: TEMP 38.5
--- NOTE | 2021-01-02 07:46 | PM.DS.1 ---
History of Present Illness History of Present Illness Date Patient Seen: 01/02/21 Chief complaint: Stroke Narrative: Patient is a 75-year-old male nonsmoker, with history of HTN, DM, CHF, GERD, AFib and pacemaker. Patient was previously hospitalized from 12/16-12/20 for septic shock secondary to cellulitis toe with encephalopathy and seizure possibly secondary to alcohol withdrawal. Patient was brought in via EMS his last known normal was approximately 10:00 p.m. on 12/29/2020 he was unarousable by family. The patient was also unarousable by the ED, he was found to have basilar stroke on Head CT. Patient's daughter was contacted and advised that patient be admitted for comfort care only, code status DNR. Patient's Primary [facility] at the [facility]. His daughter is an RN who lives within a mile of father who lives alone she goes by per day to provide care. Patient is hemodynamically stable, unarousable, and appears in no distress at this time. Patient's labs were fairly unremarkable upon admit a slight anemia with a hemoglobin of 8.1 and hematocrit 24.1, vital signs were stable temp of 98.4?, BP 123/59, HR 61, R 16, with an O2 saturation of 98% on room air. Patient will be admitted for stroke/comfort measures. Discharge Providers Provider Date of admission: 12/30/20 03:29 Discharge Date: 01/02/21 Primary care physician: Lashon Garay MD Consults: 12/30/20 03:39 Consult to Discharge Planning Routine Comment: Consult to Hospice Referral Urgent Comment: 12/30/20 03:42 Consult to Occupational Therapy Evaluate & Treat Comment: Physician Instructions: Evaluate and treat Consult to Physical Therapy Evaluate & Treat Comment: Physician Instructions: Evaluate and Treat Consult to Speech Therapy Evaluate & Treat Comment: Physician Instructions: Evaluate and treat Discharge provider: Diana Donnelly MD Summary Hospital Course Discharge Diagnosis: 1. Acute basilar CVA, comatose 2. Congestive heart failure, with a preserved ejection fraction 3. Atrial fibrillation with pacemaker 4. GERD 5. Type 2 diabetes 6. 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 Patient was comatose. This was discussed with the POA, his daughter who noted that the patient expressed clear goals of care and would want to be kept comfortable. Hospice orders were entered. Plans were made to discharge the patient home with hospice. During the hospital stay the patient remained comatose and was unarousable. He continued to have fevers to 100.3. He was hypoxic. At times he H Navneet-Avelar respirations. His breathing even doubt although he continues to be on arousable. As arrangements for home hospice were made the patient was deemed appropriate for discharge and discharged accordingly. Status at Discharge Cognitive/behavioral status at discharge: confused Functional status at discharge: bed bound Overall status at discharge: patient is not back to baseline Time Spent with Patient Time spent: Less than 30 minutes Exam Vital Signs (past 8 hours): - 01/02/21 00:20 01/02/21 01:02 01/02/21 02:05 Temperature 102.9 F H 101.4 F H 99.4 F Pulse Rate 61 Respiratory Rate 24 Blood Pressure 152/67 H Pulse Oximetry 82 L 69 L 01/02/21 06:04 01/02/21 06:26 Temperature 103.3 F H 103.3 F H Pulse Rate Respiratory Rate 24 Blood Pressure Pulse Oximetry 79 L Oxygen Delivery Method Room Air Oxygen Flow Rate 0 Narrative Exam Narrative: Ill-appearing coma toes male on arousable Lungs: Loud coarse rhonchi bilaterally Cardiac exam: Tachycardic irregularly irregular normal S1-S2 Abdomen soft and nontender : Martínez catheter in place Extremities: No edema, right 2nd digit with ulcer on the top of the toe Objective Labs Result Diagrams: 12/30/20 02:15 12/30/20 02:15 [facility] Medical History Coarse tremors Congestive heart failure Control of atrial fibrillation with pacemaker Depression GERD (gastroesophageal reflux disease) Gout Hypertension Type 2 diabetes mellitus with diabetic neuropathy Surgical History History of knee replacement Family History Mother Heart disease Stroke Father Congestive heart failure Renal failure Social History household members: none Smoking Status: Never smoker alcohol intake: never Discharge Assessment & Plan Assessment and Plan Assessment: Acute basilar artery CVA, patient is terminal and returning home on hospice Hypertension Type 2 diabetes Congestive heart failure with preserved ejection fraction GERD Plan of Treatment: Home with hospice Discharge Plan Discharge Plan Patient Disposition: Hospice - Home Discharge orders & Medications Prescriptions: New scopolamine base [Transderm-Scop] 1 mg over 3 days Patch 3 Day 1 patch topical Q72H Qty: 5 RF: 0 Discontinued isosorbide (solution) 30 mg PO QD-BID RF: 0 pravastatin 20 mg PO QD-BID RF: 0 Protonix 20 mg PO DAILY PRN (Reason: Acid Reflux) RF: 0 allopurinol 300 mg PO DAILY RF: 0 bumetanide 2 mg PO PRN PRN (Reason: Edema) RF: 0 metoprolol succinate 100 mg PO DAILY RF: 0 levothyroxine 75 mg PO DAILY RF: 0 Pepcid 20 mg PO PRN PRN (Reason: Acid Reflux) RF: 0 sennosides [senna] 8.6 mg Tablet 17.2 mg PO BEDTIME Qty: 30 RF: 0 thiamine HCl (vitamin B1) [Vitamin B-1] 100 mg Tablet 100 mg PO DAILY Qty: 30 RF: 0 docusate sodium [DOK] 100 mg Capsule 100 mg PO BID Qty: 30 RF: 0 folic acid 1 mg Tablet 1 mg PO DAILY Qty: 30 RF: 0 oxycodone 5 mg Tablet 5 mg PO Q6HR PRN (Reason: Pain, Moderate (4-6)) Qty: 10 RF: 0 multivitamin with folic acid [Tab-A-Rj] 400 mcg Tablet 1 tab PO DAILY Qty: 30 RF: 0 vitamin B complex [B Complex-Vitamin B12] Tablet 1 tab PO DAILY RF: 0 duloxetine [Cymbalta] 30 mg Capsule,Delayed Release(Dr/Ec) 30 mg PO DAILY RF: 0 cefazolin in sterile water 2 gram/20 mL Syringe 20 ml IV TID RF: 0 Follow up/Referrals: Lashon Garay MD [Primary Care Provider] - Discharge Data Primary Care Provider: Lashon Garay Quality VTE Deep Vein Thrombosis/Pulmonary Embolism Present on Admission: Yes
--- NOTE | 2021-01-02 08:32 | CM.DPC ---
DCP Discharge home w/ Hospice Per MD, pt remains stable to d/c home with Hospice services today and completed discharge summary. MEGAN faxed d/c summary to [facility] and called with update on d/c and confirmed PICC line can be pulled prior to d/c as pt comfortable and not requiring significant pain meds. MEGAN updated MD and RN and management retail intern regarding plan of d/c at 0900 via [facility] with Hospice to open between [id number]. MEGAN made sure that BLS form completed with POLST and facesheet ready for [facility]. MEGAN called pt's Dtr/LAURA Rolando and confirmed hospital bed delivered yesterday and they are still agreeable with d/c plan of home this morning and [facility]. Rolando had questions regarding VA vs [employer] coverage for BLS and MEGAN provided [facility] contact information and requested he call and ask them the insurance questions. Plan: Patient to d/c to Dtr's home in [place] via [facility] at 0900 for [facility] to open between [phone]. ALBERTINA Warner
--- NOTE | 2021-01-02 09:29 | PC.NURSE ---
Day shift: Pt taken home on Hospice by BLS transport at approx 0915, Pt has 2 silver colored rings on left hand and a watch on rt wrist. Pt has all personal belongings. Discharge packet given to BLS transport. PICC line removed per Dr Worley.
== END 2021-01-02 09:32 | disposition hospice, home (50) | DRG 64 ==
LOC: ED 02:44 → AC 05:48
PROVIDERS: Admitting Provider Nurse Practitioner Family; Emergency Provider Emergency Medicine; PCP Internal Medicine; Referring Provider Emergency Medicine; Visit Provider Nurse Practitioner Family
DX: I63.22 Cerebral infarction due to unspecified occlusion or stenosis of basilar artery (principal); R40.20 Unspecified coma; R06.3 Periodic breathing; I50.32 Chronic diastolic (congestive) heart failure; E11.40 Type 2 diabetes mellitus with diabetic neuropathy, unspecified; K21.9 Gastro-esophageal reflux disease without esophagitis; I48.91 Unspecified atrial fibrillation; E03.9 Hypothyroidism, unspecified; F32.9 Major depressive disorder, single episode, unspecified; I11.0 Hypertensive heart disease with heart failure; Z95.0 Presence of cardiac pacemaker; Z66 Do not resuscitate; Z20.822 Contact with and (suspected) exposure to COVID-19
CPT/HCPCS: 36415; 36600; 51702; 70450; 70496; 70498; 71045; 80053; 80305; 80320; 80329; 82140; 82550; 82805; 82962; 83605; 84145; 84484; 85025; 87040; 87635; 93005; 93010; 94799; 96374; 99285; C9803; G0378; G0480; J1642; J1885; J2060; J2270; J2310; Q9967